=== PATIENT | male | born 1950 | race Caucasian/White ===

== ENCOUNTER 2019-09-18 09:52 | Outpatient (CLI) | payer MEDICARE, SELFPAY ==
--- NOTE | ~2019-09-18 | CT_ITS ---
EXAMINATION: CTA chest DATE: 09/18/2019 10:23 INDICATION: Thoracic aortic aneurysm TECHNIQUE: Computed tomography (CT) of the chest was performed with 100 cc Omnipaque 350 intravenous contrast. Automated exposure control and iterative reconstruction technique were employed. Exam dose: 1171.59 mGy-cm total exam DLP. COMPARISON: 11/07/2018 CTA chest FINDINGS: There is ascending thoracic aortic aneurysm measuring up to approximately 4.7 cm diameter. The aortic arch measures up to approximately 3.6 cm diameter.. The descending thoracic aorta measures up is a 3.3 cm diameter. These thoracic aortic aneurysm measurements are relatively stable compared to 11/07/2018. No evidence of thoracic aortic dissection. The included abdominal aorta is of normal caliber. There a re atherosclerotic calcifications of the thoracic and abdominal aorta and coronary arteries. Heart size is borderline. No hilar or mediastinal mass lesion or lymphadenopathy. Calcified right lower lobe pulmonary granuloma. Mild atelectasis in the right lower lobe. No pulmonar y infiltrate or consolidation or pulmonary mass lesion is evident. No hepatic, splenic, pancreatic, and adrenal space-occupying mass lesion. An approximately 3.5 cm rig ht renal cyst. Degenerative disease of the included lower cervical spine. Diffuse idiopathic skeletal hyperostosis o f the thoracic and lumbar spine. IMPRESSION: Stable thoracic aortic aneurysm since 11/07/2018 Reviewed, dictated and finalized at Location A. Reviewed, dictated and finalized at location B.
[2019-09-18 10:14] LABS: Estimated Glomerular Filt Rate > 60
== END 2019-09-18 09:53 | disposition home or self-care (01) ==
LOC: ANHIMG 09:54
PROVIDERS: PCP Internal Medicine; Visit Provider Internal Medicine Cardiovascular Disease
DX: I71.2 Thoracic aortic aneurysm, without rupture (principal)
CPT/HCPCS: 36415; 71275; Q9967

== ENCOUNTER 2020-06-13 07:01 | Outpatient (CLI) | payer MEDICARE, SELFPAY ==
--- NOTE | ~2020-06-13 | MR_ITS ---
EXAMINATION: MR lumbar spine wo con DATE: 06/13/2020 08:08 INDICATION: Left foot drop. Back pain. TECHNIQUE: Magnetic resonance imaging (MRI) of the lumbar spine was performed without intravenous con trast. Sequences included sagittal T2-weighted FSE, sagittal STIR FSE, sagittal T1-weighted FSE, and axial T2-weighted FSE. COMPARISON: Lumbar spine MRI 06/21/2018 FINDINGS: There are chronic bilateral L5 pars defects. There is 9 mm anterolisthesis of L5 on S1. The re is 3-4 mm retrolisthesis of L1 on L2, L2 on L3, L3 on L4, and L4 on L5. There is mild chronic heig ht loss of L5 vertebral body posteriorly. There is mild chronic anterior wedging of T11 and T12 verte bral bodies. There is mildly decreased disc height at T12-L1, L1-L2 and L2-L3 and moderately decrease d disc height at L3-L4, L4-L5, and L5-S1. The distal spinal cord signal intensity is normal. The conu s medullaris is at T12-L1. The following disc levels are specifically discussed: L1-L2: The disc is bulging and has an annular fissure. There is moderate bilateral facet joint osteoa rthritis. There is mild right and moderate left neural foraminal stenosis. There is moderate central canal stenosis. L2-L3: The disc is bulging with superimposed right subarticular zone extrusion with mass effect on ri ght L3 nerve root in right lateral recess. There is severe bilateral facet joint osteoarthritis. Ther e is moderate bilateral neural foraminal stenosis. There is mild central canal stenosis. L3-L4: The disc is bulging with superimposed right central extrusion. There is moderate bilateral fac et joint osteoarthritis. There is moderate bilateral neural foraminal stenosis. There is mild central canal stenosis with posterior decompression. L4-L5: The disc is bulging and has an annular fissure. There is severe bilateral facet joint osteoart hritis. There is moderate bilateral neural foraminal stenosis. There is mild central canal stenosis. L5-S1: The disc is bulging and has an annular fissure. There is severe bilateral facet joint osteoart hritis. There is mild right and moderate left neural foraminal stenosis. There is mild central canal stenosis. IMPRESSION: 1. Severe lumbar spondylosis with worsened extrusion at L2-L3. 2. Chronic bilateral L5 pars defects with grade 2 anterolisthesis of L5 on S1. Reviewed, dictated and finalized at location B. SPORTATION ANALYST
== END 2020-06-13 07:02 | disposition home or self-care (01) ==
PROVIDERS: PCP Internal Medicine; Visit Provider Internal Medicine
DX: M21.372 Foot drop, left foot (principal); M54.9 Dorsalgia, unspecified; M47.816 Spondylosis without myelopathy or radiculopathy, lumbar region; M43.17 Spondylolisthesis, lumbosacral region
CPT/HCPCS: 72148

== ENCOUNTER 2020-07-23 12:52 | Outpatient (CLI) | payer MEDICARE, SELFPAY ==
--- NOTE | ~2020-07-23 | CT_ITS ---
EXAMINATION: CTA chest DATE: 07/23/2020 14:43 INDICATION: Thoracic aortic aneurysm without rupture TECHNIQUE: Computed tomographic angiography (CTA) of the chest was performed with 100 mL Omnipque-350 intravenous contrast. Maximum intensity projection 3D-reconstructions of the aorta and other arterie s were constructed by the technologist on a separate workstation. The dose-length product (DLP) was 2 072.85 mGy-cm. Automated exposure control and iterative reconstruction technique were employed. COMPARISON: 09/18/2019 FINDINGS: The ascending aorta measures 4.2 cm at the level of the sinuses of Valsalva and 4.5 cm at t he level of the main pulmonary artery. There is no dissection. Dependent atelectasis is present. A ca lcified nodule of the right lower lobe is consistent with old granulomatous disease. There is no pleu ral effusion or pneumothorax. No pathologically enlarged thoracic lymph nodes are identified. The hea rt size is normal. Coronary artery stents are noted. There is moderate thoracic spondylosis. IMPRESSION: 1. Fusiform enlargement of the ascending aorta measuring 4.5 cm at the level of the main pulmonary ar tomas. No dissection. Reviewed, dictated and finalized at location A. HEAD CLEANER MAINTAINER IMPRESSION: 1. Fusiform enlargement of the ascending aorta measuring 4.5 cm at the level of the main pulmonary artery. No dissection.
[2020-07-23 14:11] LABS: Estimated Glomerular Filt Rate > 60
== END 2020-07-23 12:53 | disposition home or self-care (01) ==
PROVIDERS: PCP Internal Medicine; Visit Provider Internal Medicine Cardiovascular Disease
DX: I71.2 Thoracic aortic aneurysm, without rupture (principal)
CPT/HCPCS: 71275; Q9967

== ENCOUNTER 2020-08-27 07:43 | Outpatient (CLI) | payer MEDICARE, SELFPAY ==
--- NOTE | ~2020-08-27 | NM_ITS ---
EXAMINATION: NM mary stress w perfusion DATE: 08/27/2020 10:26 INDICATION: Dyspnea TECHNIQUE: Rest images were obtained following intravenous administration of 11.22 mCi Tc99m tetrofos min (Myoview). The patient was infused intravenously with Lexiscan (Regadenoson). Then, 33 mCi Tc99m tetrofosmin (Myoview) was administered intravenously, and stress images were obtained. Data was recon structed into short axis and horizontal and vertical long axis SPECT images. Gated SPECT images were also obtained. COMPARISON: None. FINDINGS: There is no definite reversible or fixed perfusion abnormality to suggest ischemia or infar ction. There is normal left ventricular chamber size, wall motion and ejection fraction. Left ventr icular ejection fraction measures 60%. IMPRESSION: 1. Normal myocardial perfusion at rest and during stress. 2. Left ventricular ejection fraction measuring 60%. Reviewed, dictated and finalized at location A. UP HELPER
--- NOTE | 2020-08-27 08:08 | EST_ITS ---
Patient Info Name: Stephen Welch Age: 70 years : 1950 Gender: Male Ht: 71 in Wt: 333 lbs BSA: 2.83 m2 Exam Date: 08/27/2020 9:14 AM Exam Location: [facility] Stress Patient Status: Outpatient Admit Date: 08/27/2020 Staff Ordering Physician: Nik Daniels DO Attending Provider: Nik Daniels DO Exercise Technologist: Wesley Meneses RDCS, RT Exercise Physician: Nik Daniels DO Exam Type: CA stress mary w NM Study Info A regadenoson stress test was performed. Summary 1. 1. Negative Lexiscan stress test for ischemic ST changes by ECG criteria. 2. 2. Stable hemodynamics throughout the test. 3. 3. Nuclear scan to follow and will be reported separately. Please correlate with it. 4. 4. Patient advised to decrease Toprol 50 mg daily from 100 mg daily due to bradycardia. 5. 5. Patient informed of the above results. Protocol: Lexiscan Stress ECG Details Stage: REST Duration (min): 1 min : 4 sec HR (bpm): 50 SBP (mmHg): 136 DBP (mmHg): 77 Stage: REST Duration (min): 6 min : 23 sec HR (bpm): 62 SBP (mmHg): 136 DBP (mmHg): 77 Stage: STAGE 1 Duration (min): 0 min : 59 sec HR (bpm): 47 SBP (mmHg): 138 DBP (mmHg): 83 Stage: RECOVERY Duration (min): 1 min : 0 sec HR (bpm): 58 SBP (mmHg): 138 DBP (mmHg): 83 Stage: RECOVERY Duration (min): 2 min : 0 sec HR (bpm): 52 SBP (mmHg): 163 DBP (mmHg): 84 Stage: RECOVERY Duration (min): 3 min : 0 sec HR (bpm): 46 SBP (mmHg): 163 DBP (mmHg): 84 Stage: RECOVERY Duration (min): 3 min : 27 sec HR (bpm): 50 SBP (mmHg): 163 DBP (mmHg): 84 Rest HR: 62 bpm Peak HR: 62 bpm Rest Sys BP: 136 mmHg Peak Sys BP: 163 mmHg Max Pred HR: 150 bpm % Max Pred HR: 41 % Target HR: 128 bpm Max RPP: 10,106 bpm*mmHg Termination Reason: Completed protocol Cardiac Symptoms: Shortness of breath Total Time: 1 min : 0 sec Rest Pardo BP: 77 mmHg Peak Pardo BP: 84 mmHg Total Dose: 0.4 mg Resting ECG Atrial fib at HR 40-50's bpm. Stress ECG No ST changes. Arrhythmias None. Report Signatures
== END 2020-08-27 07:44 | disposition home or self-care (01) ==
PROVIDERS: PCP Internal Medicine; Visit Provider Internal Medicine Cardiovascular Disease
DX: R06.09 Other forms of dyspnea (principal)
CPT/HCPCS: 78452; 93017; A9502; J2785

== ENCOUNTER → 2021-05-06 02:32 | Outpatient (CLI) | payer MEDICARE, SELFPAY ==
[2021-05-06 17:30] LABS: SARS-CoV-2 RNA PCR Positive
== END ==
PROVIDERS: PCP Internal Medicine; Visit Provider Physician Assistant
DX: U07.1 COVID-19 (principal)
CPT/HCPCS: C9803; U0003; U0005

== ENCOUNTER 2021-05-08 09:50 | Outpatient (RCR) | payer MEDICARE, SELFPAY ==
[2021-05-08] MEDS: ACETAMINOPHEN 325 MG TABLET 650 MG PO (10:06)
[2021-05-08] MEDS: diphenhydrAMINE HCl CAP 25 MG CAPSULE PO (10:06)
[2021-05-08] MEDS: FAMOTIDINE 20 MG TABLET PO (10:07)
[2021-05-08 10:24] VITALS: BP 133/60; PULSE 64; RESP 22; TEMP 36.9; O2SAT 96
--- NOTE | 2021-05-08 10:25 | PC.NURSE ---
Patient received [facility] vaccine in September 2020.
[2021-05-08 11:17] VITALS: BP 133/63; PULSE 98; RESP 20; TEMP 36.8; O2SAT 97
--- NOTE | 2021-05-11 09:49 | PC.NURSE ---
Called patient to follow-up regarding COVID antibody infusion. Patient states he is feeling much better and denies any side effects.
== END 2021-05-08 15:44 | disposition home or self-care (01) ==
LOC: AMCINF 09:50
PROVIDERS: PCP Internal Medicine; Referring Provider Physician Assistant; Visit Provider Internal Medicine Hematology & Oncology
DX: Z23 Encounter for immunization (principal); U07.1 COVID-19; I10 Essential (primary) hypertension
CPT/HCPCS: A9270; M0243; Q0243

== ENCOUNTER 2021-07-26 20:04 | Emergency (ER) | payer MEDICARE, SELFPAY ==
--- NOTE | ~2021-07-26 | XR_ITS ---
EXAMINATION: XR chest 1V portable EXAM DATE: 07/26/2021 22:27 INDICATION: SOB, COPD, SWOLLEN ANKLES . TECHNIQUE: Portable AP frontal chest x-ray was obtained. Comparison is made to prior examination from 11/07/2018. FINDINGS: There is cardiomegaly, small to moderate left and small right pleural effusion. There is pu lmonary vascular congestion. Possible mild pulmonary edema. Consider CHF exacerbation. There is no pn eumothorax suspected. There are mild bony degenerative changes. IMPRESSION: 1. Findings consistent with CHF exacerbation. Reviewed, dictated and finalized at location A. OP ANALYST
[2021-07-26 20:16] VITALS: BP 151/92; PULSE 85; RESP 22; TEMP 36.9; O2SAT 96
[2021-07-26 21:46] VITALS: PULSE 104; RESP 21; O2SAT 85
--- NOTE | 2021-07-26 21:58 | ECG_ITS ---
Measurements Intervals [place] Rate: 76 P: ID: 0 QRS: -3 QRSD: 102 T: 0 QT: 342 QTc: 387 Interpretive Statements ATRIAL FIBRILLATION FREQUENT VENTRICULAR PREMATURE COMPLEXES LOW QRS VOLTAGE IN PRECORDIAL LEADS NONSPECIFIC ST & T-WAVE ABNORMALITY- INF/HIGH LAT LEADS BASELINE ARTIFACT- I, II, III, AVR, AVL, AVF, V1-V3, V6 ABNORMAL ECG Electronically Signed On 07-27-2021 6:22:12 WAX BALL KNOCK OUT WORKER by Nik Daniels D.O.
[2021-07-26 22:00] VITALS: PULSE 96; RESP 23; O2SAT 95
[2021-07-26 22:01] VITALS: BP 164/87; PULSE 84; RESP 34; O2SAT 94
[2021-07-26 22:18] LABS: Alveolar/Arterial O2 Gradient 80.1 mmHg; Base Excess ABG 4.1 mEq/l (+/-2.0); Fractional Inspired Oxygen 28 %; HCO3 ABG 27.1 mEq/l (22.0-26.0); Oxygen Content ABG 17.2 %vol (16.0-22.0); Oxygen Saturation ABG 96.5 % (95.0-100.0); Oxyhemoglobin 94.1 % THb (90.0-100.0); PCO2 ABG 35.3 mmHg (35.0-45.0); PO2 ABG 77.9 mmHg (80.0-100.0); PO2 FiO2 Ratio Arterial Blood 2.78 %
[2021-07-26 22:20] LABS: Device NASAL CANNULA; Modified Allen's Test Pass; Site Drawn RIGHT RADIAL; pH ABG 7.503 (7.350-7.450)
--- NOTE | 2021-07-26 22:40 | ED.GENADULT ---
HPI - General Adult General Chief complaint: Shortness of Breath/Dyspnea Stated complaint: sob, copd, Time Seen by Provider: 07/26/21 21:50 History of Present Illness HPI narrative: Patient is a 71-year-old gentleman who presents the emergency department with chief complaint of shortness of breath. Patient reports he has history of COPD also history of PEs and is currently on an anticoagulant. Patient states over the last several days he has been having increasing shortness of breath noticed that he has to breathe hard to be able to feel as though he is not short of breath. The patient states that his lower extremities are swollen patient does report that he has had a little bit of tightness in his chest patient denies fever does report that he took a rapid COVID test on Tuesday that was negative. The patient does report that he has had COVID previously. Related Data Allergies Allergy/AdvReac Type Severity Reaction Status Date / Time Sulfa (Sulfonamide Allergy Severe Swelling Verified 07/26/21 23:44 Antibiotics) Review of Systems Review of Systems: A 10 system review of systems was completed on the patient and is negative except for what is stated in the HPI. Nursing and ancillary documentation was reviewed. [facility] Family History Family History Father Acute myocardial infarction Sibling Patient's sister is Family history of cardiovascular disease Social History Social History Years smoked: 10 Tobacco type: cigars Second hand tobacco smoke exposure: No Smoking end date: 07/04/94 Alcohol intake: never Spiritual care concerns: No Exam Narrative: GENERAL: Well-appearing, well-nourished, and in no acute distress. HEAD: Normocephalic, atraumatic. EYES: PERRLA and EOMI. ENT: Nares clear, no rhinorrhea or epistaxis. Mucous membranes moist. NECK: Supple. CHEST: Clear to auscultation. No respiratory distress. HEART: Regular rate and rhythm. No murmur heard. Normal peripheral pulses. ABDOMEN: Soft, nontender, nondistended, normal active bowel sounds. EXTREMITIES: Normal range of motion. +2 edema. SKIN: Warm, dry, no rash. NEURO: No focal deficits. Alert and oriented x3. PSYCH: Normal mood and affect. Course Course Emergency Course: EKG is A. fib with a rate of [address] elevation or ST depression occasional PVC Chest x-ray shows pulmonary vascular congestion Attempt to perform a CTA of the chest was done patient was unable to lay flat. Patient was given diuretics the plan was to admit the patient to the hospital continue diuresis and manage and supportive care also the patient tested positive for COVID-19. The patient decided that the hospital was not comfortable and chose to leave the hospital AGAINST MEDICAL ADVICE the patient was explained that there is a risk of and worsening of symptoms, potential permanent disability if he were to leave. The patient expressed understanding this. Vital Signs Vital signs: Vital Signs Temperature 36.9 C 07/26/21 20:16 Pulse Rate 85 07/26/21 20:16 Respiratory Rate 22 H 07/26/21 20:16 Blood Pressure 151/92 H 07/26/21 20:16 Pulse Oximetry 96 07/26/21 20:16 Temperature 36.9 C 07/26/21 20:16 Pulse Rate 76 07/27/21 03:31 Respiratory Rate 32 H 07/27/21 03:31 Blood Pressure 157/78 H 07/27/21 03:31 Pulse Oximetry 94 07/27/21 03:31 Medical Decision Making Vital Signs Vital Signs: Vital Signs Temperature 36.9 C 07/26/21 20:16 Pulse Rate 85 07/26/21 20:16 Respiratory Rate 22 H 07/26/21 20:16 Blood Pressure 151/92 H 07/26/21 20:16 Pulse Oximetry 96 07/26/21 20:16 Temperature 36.9 C 07/26/21 20:16 Pulse Rate 76 07/27/21 03:31 Respiratory Rate 32 H 07/27/21 03:31 Blood Pressure 157/78 H 07/27/21 03:31 Pulse Oximetry 94 07/27/21 03:31 Lab Data Resu
[2021-07-26 23:10] LABS: Basophils Percent Auto 0.3 % (0.2-1.2); Eosinophils Absolute Auto 0.1 K/mm3 (0-0.3); Eosinophils Percent Auto 0.5 % (0-4.4); Hemoglobin 12.9 g/dL (14.0-18.0); Immature Granulocyte Absolute 0.06 K/mm3 (0.00-0.031); Immature Granulocyte Percent A 0.5 % (0-0.5); Lymphocytes Percent Auto 11.1 % (18.3-44.2); Mean Corpuscular HGB Conc 33.1 g/dl (32-36); Mean Corpuscular Hemoglobin 26.7 pg (26-34); Mean Corpuscular Volume 80.7 fl (80-100); Mean Platelet Volume 8.3 fl (7.4-10.4); Monocytes Percent Auto 8.6 % (2.6-8.5); Neutrophils Absolute Auto 9.2 K/mm3 (1.3-6.7); Platelet Count Result 328 k/mm3 (150-375); Red Blood Count 4.83 M/mm3 (4.6-6.20); Red Cell Distribution Width 16.5 % (11.5-14.5); White Blood Count 11.7 K/mm3 (4.5-10.0)
[2021-07-26 23:20] LABS: Partial Thromboplastin Time 52.1 SECONDS (22.3-36.8)
[2021-07-26 23:21] LABS: Alanine Aminotransferase 30 U/L (4-50); Albumin Level 3.9 g/dL (3.5-5.1); Alkaline Phosphatase 119 U/L (38-126); Anion Gap 11 mmol/L (8-16); Aspartate Amino Transferase 40 U/L (17-59); Bilirubin,Total 1.5 mg/dL (0.2-1.3); Blood Urea Nitrogen 15 mg/dL (9-20); Calcium 9.4 mg/dL (8.4-10.2); Carbon Dioxide 28 mmol/L (22-30); Chloride 97 mmol/L (98-107); Estimated CRCL calculation 125 ml/min; Estimated Glomerular Filt Rate > 60; Glucose 136 mg/dL (65-110); Lactic Acid Reflex 1.2 mmol/L (0.7-2.1); Potassium 3.4 mmol/L (3.4-5.0); Sodium 136 mmol/L (137-145)
[2021-07-26 23:32] LABS: Troponin I < 0.012 ng/mL (0.000-0.034)
[2021-07-26 23:39] LABS: NT Pro B Type Natriuretic Pept 2220 pg/mL (5-100)
[2021-07-26 23:40] VITALS: BP 148/74; PULSE 91; RESP 20; O2SAT 97
[2021-07-27 00:02] VITALS: BP 151/88; PULSE 81; RESP 31; O2SAT 97
--- NOTE | 2021-07-27 00:18 | PC.NURSE ---
Pt to imaging at this time.
[2021-07-27] MEDS: FUROSEMIDE INJ 40 MG/4 ML VIAL IV PUSH (00:52)
[2021-07-27 01:03] LABS: Add Urine Microscopic? YES; Appearance Urine Clear (Clear); Bilirubin Urine Negative (Negative); Blood Urine Negative (Negative); Color Urine Yellow (Yellow); Glucose Urine UA Negative (Negative); Ketones Urine Negative (Negative); Leukocyte Esterase Ur Negative LEU/UL (Negative); Mucus Urine Rare /lpf; Nitrate Urine Negative (Negative); Protein Urine Negative (Negative); Specific Grav Ur 1.015 (1.001-1.035); Squamous Epithelial Cell Urine Rare /hpf (Few); WBC Urine 0-3 /hpf
[2021-07-27 01:32] VITALS: BP 151/83; PULSE 84; RESP 18; O2SAT 99
--- NOTE | 2021-07-27 01:38 | PC.NURSE ---
Pt expresses wishes to leave AMA, ERP at bedside discussing plan.
[2021-07-27 02:31] VITALS: BP 172/95; PULSE 77; RESP 32; O2SAT 95
[2021-07-27 03:11] LABS: SARS-CoV-2 RNA PCR Positive
[2021-07-27 03:20] LABS: Troponin I < 0.012 ng/mL (0.000-0.034)
[2021-07-27 03:31] VITALS: BP 157/78; PULSE 76; RESP 32; O2SAT 94
--- NOTE | 2021-07-27 04:46 | PC.NURSE ---
Pt visitor instructed to leave due to COVID result, pt requesting to sign out AMA at this time. ERP at bedside.
--- NOTE | 2021-07-27 05:02 | PC.NURSE ---
Addendum entered by Estela Johnson RN 07/27/21 05:12: Pt states he cannot stay in ED bed any longer. Pt offered hospital bed, pt declined. Further comfort measures offered to pt, pt declines. Original Note: After discussion with this RN and ERP, pt continues to request AMA paperwork. Pt warned of risks of leaving extensively. Pt verbalizes he will follow up with automobile service station mechanic in the morning.
== END 2021-07-27 05:13 | disposition left against medical advice (07) ==
LOC: ANHED 07-27 02:11 → ANH3MEDSUR 07-27 05:11
PROVIDERS: Emergency Provider Emergency Medicine; PCP Internal Medicine
DX: U07.1 COVID-19 (principal); R06.00 Dyspnea, unspecified; I50.9 Heart failure, unspecified; Z86.16 Personal history of COVID-19; J44.9 Chronic obstructive pulmonary disease, unspecified; Z86.711 Personal history of pulmonary embolism; Z79.01 Long term (current) use of anticoagulants; Z87.891 Personal history of nicotine dependence; I48.91 Unspecified atrial fibrillation; I49.3 Ventricular premature depolarization; R94.31 Abnormal electrocardiogram [ECG] [EKG]
CPT/HCPCS: 36415; 36600; 71045; 80053; 81001; 82805; 83605; 83880; 84484; 85025; 85610; 85730; 93005; 96374; 99284; C9803; J1940; U0003; U0005

== ENCOUNTER 2022-05-13 18:42 | Inpatient (IN) | payer MEDICARE, SELFPAY ==
[2022-05-13] VITALS (31 sets, daily range): BP systolic 115–176; BP diastolic 68–130; PULSE 61–90; RESP 12–27; TEMP 37.2; O2SAT 99
--- NOTE | ~2022-05-13 | CT_ITS ---
EXAMINATION: CT brain wo con DATE: 05/13/2022 18:52 INDICATION: Right hemiparesis. TECHNIQUE: Computed tomography (CT) of the head was performed without intravenous contrast. The mA wa s adjusted according to patient size. Iterative reconstruction technique was employed. The dose-lengt h product was 681.00 mGy-cm. COMPARISON: None FINDINGS: There are scattered areas of low attenuation in the cerebral white matter, which is within normal limits for the patient's age. There is no intracranial hemorrhage, acute infarction, or abnorm al intracranial mass lesion. The ventricles are normal in size. There are likely changes of left ocul ar lens replacement surgery. There is mild mucosal thickening in the paranasal sinuses. A 3 mm subcut aneous density in the right cheek may be a calcification or foreign body. IMPRESSION: 1. Normal aging brain. I called this result to Dr. Post. Reviewed, dictated and finalized at location A. AIDE
--- NOTE | ~2022-05-13 | XR_ITS ---
EXAMINATION: XR chest 1V portable DATE: 05/13/2022 19:15 INDICATION: Confusion. Cerebrovascular accident. TECHNIQUE: A single frontal view of the chest was obtained. COMPARISON: Chest single view 07/26/2021, chest CT 07/23/2020 FINDINGS: A calcified right lung nodule is consistent with old granulomatous disease. No pleural effu mikaela or pneumothorax. Cardiomegaly is noted. IMPRESSION: 1. Cardiomegaly. Reviewed, dictated and finalized at location A. ER TENDER IMPRESSION: 1. Cardiomegaly.
--- NOTE | ~2022-05-13 | CT_ITS ---
EXAMINATION: CTA BRAIN/CAROTID DATE: 05/13/2022 23:56 INDICATION: Stroke TECHNIQUE: Computed tomographic angiography (CTA) of the head and neck was performed with 100 mL Omni paque-350 intravenous contrast. Multiplanar reconstructions and maximum intensity projection 3D-recon structions of the carotid arteries and of the intracranial arteries were created by the technologist on a separate workstation. Automated exposure control and iterative reconstruction technique were emp loyed.The dose-length product was 1185.20 mGy-cm. COMPARISON: Head CT dated 05/13/2022 FINDINGS: Carotid arteries: Visualized portion of the aortic arch is normal in caliber with minimal nonhemodynamically significan t atherosclerotic plaque and no dissection. Tortuous innominate artery with additional minimal athero sclerotic plaque. There is small amount of atherosclerotic plaque with 0% stenosis of the left and ri ght carotid bulbs relative to normal distal artery lumen diameter (NASCET criteria). There are few sm all bilateral thyroid nodules, the largest on the left measuring 12 mm. Cervical soft tissues are oth erwise unremarkable. Visualized upper lungs are clear accounting for expiratory phase of imaging. Intracranial arteries Small amount of nonhemodynamically significant atherosclerotic plaque at the left vertebral artery an d bilateral carotid siphons. There is no hemodynamically significant stenosis in the vertebral, basil ar and internal carotid arteries. Left vertebral artery is dominant. There are no aneurysms identifie d. Bilateral P1 segments are patent. Left and right anterior circulation are supplied via a larger ca liber right A1 segment segments Cerebral arterial arborization appears symmetric. Moderate to severe cervical spondylosis. IMPRESSION: 1. Small amount of atherosclerotic plaque with 0% stenosis of the right and left carotid bulbs relati ve to normal distal artery lumen diameter (NASCET criteria). 2. Normal variant supply of both the left and right anterior cerebral arteries via the right internal carotid artery and a patent right A1 segment and anterior communicating artery. Otherwise unremarkab le cerebral CT angiogram. Reviewed, dictated and finalized at location A. ERCIAL MANAGER IMPRESSION: 1. Small amount of atherosclerotic plaque with 0% stenosis of the right and lef t carotid bulbs relative to normal distal artery lumen diameter (NASCET criteri a). 2. Normal variant supply of both the left and right anterior cerebral arteries via the right internal carotid artery and a patent right A1 segment and anterio r communicating artery. Otherwise unremarkable cerebral CT angiogram.
--- NOTE | ~2022-05-13 | XR_ITS ---
EXAMINATION: XR hip RT 2V w AP pelvis INDICATION: Right groin pain TECHNIQUE: AP view the pelvis and two views of the right hip are obtained. COMPARISON: None available FINDINGS: There is moderate osteoarthritis of the hips. Bone alignment is normal. There is no fractur e. Phleboliths are noted in the pelvis. Spinal fusion hardware is noted in the lumbar spine. IMPRESSION: 1. Moderate osteoarthritis of the hips without acute osseous abnormality. Reviewed, dictated and finalized at location A. MANAGER
--- NOTE | ~2022-05-13 | MR_ITS ---
EXAMINATION: MR brain/brain stem wo con DATE: 05/14/2022 15:04 INDICATION: Acute stroke. TECHNIQUE: Magnetic resonance imaging (MRI) of the brain and brainstem was performed without intraven ous contrast. COMPARISON: Head CT 05/13/2022 FINDINGS: There is an acute infarct in left temporal occipital region in the expected distribution of left posterior cerebral artery. There is an acute infarct in left thalamus. There is an old lacunar infarct in right thalamus. There are scattered areas of nonspecific increased T2-weighted signal inte nsity in the cerebral white matter, which is within normal limits for the patient's age. There is no intracranial hemorrhage or abnormal mass lesion. The ventricles are normal in size. There is mild muc osal thickening in the ethmoid sinuses. The mastoid air cells are normal. There are likely changes of left ocular lens replacement surgery. There is susceptibility artifact from a subcutaneous foreign b diogenes in right infraorbital region. IMPRESSION: 1. Acute infarct in left temporal occipital region. Acute infarct in left thalamus. 2. Old lacunar infarct in right thalamus. Reviewed, dictated and finalized at location A. ER MAN IMPRESSION: 1. Acute infarct in left temporal occipital region. Acute infarct in left thala mus. 2. Old lacunar infarct in right thalamus.
--- NOTE | 2022-05-13 18:45 | ECG_ITS ---
Measurements Intervals [place] Rate: 64 P: IA: 0 QRS: -9 QRSD: 93 T: 89 QT: 445 QTc: 461 Interpretive Statements ATRIAL FIBRILLATION VENTRICULAR PREMATURE COMPLEX LEFT VENTRICULAR HYPERTROPHY WITHN ST-T CHANGES BASELINE ARTIFACT- V4-V5 ABNORMAL RECG COMPARED TO ECG 07/26/2021 22:21:38 NO SIGNIFICANT CHANGES Electronically Signed On 05-13-2022 20:52:52 TUBERCULOSIS SPECIALIST by Nik Daniels D.O.
--- NOTE | 2022-05-13 19:05 | ED.NEUROSD ---
HPI - Neuro Symptoms/Deficit General Chief Complaint: Suspected CVA Stated Complaint: cva Time Seen by Provider: 05/13/22 18:53 History of Present Illness HPI Narrative: 71-year-old male presenting the emergency department for evaluation of altered mental status. Patient was at home with his when he was watching TV and noticed that he was slow to respond. She states she did give him a glass of water and that in his right hand he was almost about to drop the glass. states patient was able to eat some dinner but did not utilize his right hand for using the utensils. Patient atrial fibrillation on Xarelto, history of prior DVT, hypertension Related Data Allergies Allergy/AdvReac Type Severity Reaction Status Date / Time Sulfa (Sulfonamide Allergy Severe Swelling Verified 05/10/22 09:22 Antibiotics) Review of Systems Review of Systems: CONSTITUTIONAL: Denies fever, chills, or sweats. EYES: Denies visual changes, redness, or discharge. ENT: Denies rhinorrhea, congestion, sore throat, or otalgia. CARDIOVASCULAR: Denies chest pain, palpitations, or edema. RESPIRATORY: Denies cough or dyspnea. GASTROINTESTINAL: Denies abdominal pain, nausea, vomiting, or diarrhea. GENITOURINARY: Denies dysuria or hematuria. SKIN: Denies rash or itching. MUSCULOSKELETAL: Denies back pain, joint pain, or myalgia. NEUROLOGIC: See HPI PSYCHIATRIC: Denies anxiety or depression. [facility]LY [facility] Past Medical History Medical History (Updated 05/14/22 @ 06:06 by Lanre Maya MD) Chronic atrial fibrillation COPD (chronic obstructive pulmonary disease) COVID-19 05/2021 Depression Essential (primary) hypertension Foot drop, left Former smoker No longer active. Pt quit 1989. 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 They have 3 adult children who are healthy. 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 He smoked couple of cigars a day for between 10 in 20 years but quit smoking over 40 years ago. Does not drink alcohol. He ambulates with canes and or walker. Code status: Full code Surrogate decision maker: Years smoked: 10 Smoking status: Former smoker Tobacco type: cigars Second hand tobacco smoke exposure: Yes Smoking end date: 07/04/89 Alcohol intake: never Substance use: never Substance use type: does not use Lack of Transportation: No Lack of Food: Never True Current Housing: I Have Housing Concerned About Future Housing: No Difficulty Paying Gas/Electric Bills: No Difficulty Paying for Meds: No Currently Unemployed: No Education: Decline to Answer Difficulty w/ Childcare or Family Care: No Spiritual care concerns: No Exam Narrative: APPEARANCE: Well appearing, no pain, no distress, well-nourished. HEAD: normocephalic, atraumatic. EYES: PERRLA/EOMI, conjunctivae clear. NOSE: Normal no drainage EARS:TMS clear with good light reflex. THROAT: Pharynx clear, no exudate. NECK: Supple. No adenopathy, no masses. RESPIRATORY: Airway patent, respirations nonlabored. Clear to auscultation bilaterally, no rales, rhonchi
[2022-05-13 19:09] LABS: Glucose Point of Care 112 mg/dl (65-105)
[2022-05-13 19:14] LABS: Basophils Percent Auto 0.2 % (0.2-1.2); Eosinophils Absolute Auto 0.1 K/mm3 (0-0.3); Hematocrit 42.9 % (42.0-52.0); Immature Granulocyte Absolute 0.04 K/mm3 (0.00-0.031); Immature Granulocyte Percent A 0.5 % (0-0.5); Lymphocytes Percent Auto 19.8 % (18.3-44.2); Mean Corpuscular HGB Conc 32.6 g/dl (32-36); Mean Corpuscular Hemoglobin 27.5 pg (26-34); Mean Corpuscular Volume 84.1 fl (80-100); Mean Platelet Volume 9.2 fl (7.4-10.4); Monocytes Absolute Auto 0.7 K/mm3 (0.1-0.6); Monocytes Percent Auto 7.7 % (2.6-8.5); Neutrophils Absolute Auto 6.1 K/mm3 (1.3-6.7); Neutrophils Percent Auto 70.8 % (45.5-73.1); Platelet Count Result 200 k/mm3 (150-375); Red Cell Distribution Width 16.1 % (11.5-14.5); White Blood Count 8.6 K/mm3 (4.5-10.0)
[2022-05-13 19:24] LABS: Alanine Aminotransferase 34 U/L (6-50); Albumin Level 4.4 g/dL (3.5-5.1); Alkaline Phosphatase 100 U/L (38-126); Anion Gap 10 mmol/L (8-16); Aspartate Amino Transferase 36 U/L (17-59); Blood Urea Nitrogen 19 mg/dL (9-20); Carbon Dioxide 25 mmol/L (22-30); Chloride 103 mmol/L (98-107); Estimated CRCL calculation 91 ml/min; Estimated Glomerular Filt Rate > 60; Glucose 126 mg/dL (65-110); Potassium 3.7 mmol/L (3.4-5.0); Sodium 138 mmol/L (137-145)
[2022-05-13 19:35] LABS: INR 1.1; Prothrombin Time 13.3 Seconds (11.1-14.7)
[2022-05-13 19:36] LABS: Partial Thromboplastin Time 27.7 SECONDS (22.3-36.8); Troponin I < 0.012 ng/mL (0.000-0.034)
[2022-05-13 19:58] LABS: Influenza A QL RT-PCR Negative (Negative); Influenza B QL RT-PCR Negative (Negative); SARS-CoV-2 RNA PCR Negative
[2022-05-13 21:02] LABS: Appearance Urine Clear (Clear); Bilirubin Urine Negative (Negative); Blood Urine Negative (Negative); Color Urine Yellow (Yellow); Glucose Urine UA Negative (Negative); Ketones Urine Negative (Negative); Leukocyte Esterase Ur Negative LEU/UL (Negative); Nitrate Urine Negative (Negative); Protein Urine Negative (Negative); pH Urine 7.5 (5.0-9.0)
[2022-05-13 21:12] LABS: Mucus Urine Rare /lpf; RBC Urine 0-2 /hpf (0-2)
[2022-05-13 21:13] LABS: Add Urine Microscopic? YES
--- NOTE | 2022-05-13 23:42 | PM.IMHP ---
H&P: HPI History of Present Illness Date/Time: 05/13/22 23:00 Chief Complaint: Right hand weakness, staring into space Narrative: 71-year-old male with past medical history of COPD, hypertension, GERD, hyperlipidemia and atrial fibrillation who presented to the ER with right-sided weakness and confusion. Source of information comes mostly from a 's report has the patient is having difficulty with word finding. The patient's reports that at dinner time she noticed the patient staring off into space. Sometime between this episode and when the patient arrived to the ER he had some bladder incontinence. When she actually may dinner he seemed confused as to what she had actually served him. Then during dinner he was having difficulty picking up his fork and instead fed himself with his fingers. She is unsure if he fed himself with his right hand or left hand. He is right handed. 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 He had had symptoms concerning for TIA in 2019 and was sent to [place] where he was told he had a white and blood vessel with sluggish flow. During that episode he had some transient paresthesias to his thumb and perioral paresthesias. He does have chronic left foot droop and this is not new. The patient subsequently has chronic gait instability but was able to ambulate into the ER with his walker. His reports that he walks with either 2 canes or walker depending on his level of weakness for the day. He stated he has been using a walker since he had low back surgery with a cage placed on his lumbar spine last year. Patient denies any headache or vision changes but has chronic left eye blindness due to prior retinal detachment following cataract surgery. After he had been in the ER for couple of hours and had already accepted the patient for admission the patient then began having difficulty with word finding. When I asked him what I was holding in my hand he told me that it was guilty. I was referring to a pen that I was holding in my hand. He could not name the current president. He went through a list of the months and stopped at March. He could not tell me that with April. He could not tell me that he was in the ER in kept substituting other words instead of ER. He was able to tell me the year. He still has cataract maturing in his right eye but states that his vision is stable. Both he and his tonight and the patient having any difficulties with urinary frequency, dysuria or BPH. He denies any cough, congestion, fevers or chills. Temperature was 99? in the ER. He has no identifiable source of infection. Initial CT scan in the ER was negative for acute intercranial process. Review of Systems Review of Systems: Limited due to patient's difficulty with word finding. However strain answer questions with yes and no answers review of systems was otherwise negative besides neuro symptoms. Twelve point review of systems was attempted. [facility] Past Medical History Medical History (Updated 05/14/22 @ 00:43 by Ligia Benitez DO) Chronic atrial fibrillation COPD (chronic obstructive pulmonary disease) COVID-19 05/2021 Depression Essential (primary) hypertension Foot drop, left Former smoker No longer active. Pt quit 1989. 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
[2022-05-14] VITALS (15 sets, daily range): BP systolic 117–168; BP diastolic 57–83; PULSE 45–93; RESP 20–24; TEMP 36.6–36.9; O2SAT 93–100; BMI 42.6
--- NOTE | 2022-05-14 | ECHO_ITS ---
Patient Info Name: Stephen Welch Age: 71 years : 1950 Gender: Male Ht: 72 in Wt: 314 lbs BSA: 2.75 m2 HR: 65 bpm BP: 167 / 66 mmHg Heart Rhythm: Atrial Fibrillation Technical Quality: Fair Exam Date: 05/14/2022 12:45 PM Exam Location: [facility] Patient Status: Outpatient Admit Date: 05/13/2022 Staff Ordering Physician: Hyacinth Alejandre MD Needle Punch Operator: Ebonie Hector RDCS Attending Provider: Ligia Benitez DO Exam Type: CA echo dop bubble study w con Study Info Indications - stroke h/o atrial fib Complete two-dimensional, color flow and Doppler transthoracic echocardiogram is performed with contrast to opacify the left ventricle and to improve the deliniation of the left ventricle endocardial borders. Contrast/Agitated Saline Contrast/Ag. Saline: Definity Amount: 3.00 ml Administered By: Ebonie Hector RDCS Existing IV Access: Yes IV Access Condition: patent with no signs of infiltration Contrast/Ag. Saline: Agitated Saline Amount: 20.00 ml Administered By: Ashlie Banda RDCS Existing IV Access: Yes IV Access Condition: patent with no signs of infiltration Summary 1. Normal left and right ventricular systolic function and size. 2. Moderate left atrial enlargement. 3. Atrial fibrillation. 4. Agitated saline contrast demonstrates no intracardiac shunt. Left Ventricle Left ventricular chamber dimension is normal. Left ventricular systolic function is normal, estimated at 60-65%. The left ventricular diastolic function is indeterminate. Right Ventricle Right ventricular chamber dimension is normal. Left Atria Left atrial chamber dimension is moderately enlarged. Right Atria Right atrial chamber dimension is normal. Atrial Septum Intact interatrial septum visualized by agitated saline imaging. Aortic Valve The aortic valve is normal. Pulmonic Valve The pulmonic valve is not well visualized. Mitral Valve The mitral valve has normal leaflets. Tricuspid Valve The tricuspid valve leaflets are normal. Pericardium/Pleural The pericardium appears normal. Aorta The aortic root size at the sinus of Valsalva is normal. Left Ventricular Outflow Tract Name Value Normal LVOT 2D LVOT Diameter 2.1 cm LVOT Doppler LVOT Peak Gradient 4 mmHg LVOT Mean Gradient 2 mmHg LVOT VTI 19 cm LVOT VTI/AV VTI Ratio 1.0 LVOT Stroke Volume 69 ml LVOT CO 3.9 l/min LVOT CI 1.4 l/min/m2 Pulmonic Valve Name Value Normal RVOT Doppler RVOT Peak Gradient 4 mmHg PV Doppler
[2022-05-14] MEDS: RIVAROXABAN 20 MG TABLET PO (02:52)
--- NOTE | 2022-05-14 03:53 | ADMGEN ---
This patient, Stephen Welch, was admitted to IMU Room 205-02. Patient/family oriented to hospital policies and general routines including ID bracelet, bed and alarms, visiting hours, pain management, procedures, bathroom and other care routines, personal items, smoking policy, room service/diet, and visiting hours. Information on how to activate the Rapid Response Team has been discussed. Patient/Family are encouraged to report perceived risks to care and to ask questions if they do not understand what they are told or what they should do.
--- NOTE | 2022-05-14 09:04 | WPDNEURCNPN ---
Assessment and Plan Assessment and plan (1) CVA (cerebral vascular accident): Code(s): I63.9 - Cerebral infarction, unspecified Status: Acute (2) Chronic atrial fibrillation: Code(s): I48.20 - Chronic atrial fibrillation, unspecified Status: Acute (3) Essential (primary) hypertension: Code(s): I10 - Essential (primary) hypertension Status: Acute Plan Mr. Welch is a 71 year old male with a history of atrial fibrillation presenting with RUE weakness and confusion. Found to have L HOBBER occlusion. Not a candidate for thrombectomy or tPA. Considering anticoagulation failure as the etiology. - Allow for permissive hypertension - MRI brain w/o contrast, surface echo with bubble study - Check HgbA1c and lipid panel - Recommend switching Xarelto to Eliquis for anticoagulation Consult date: 05/14/22 Time Seen: 09:05 Reason for consult: Concern for stroke HPI: Stephen Welch is a 71 year old male with a history of atrial fibrillation, prior TIA, COPD, HTN, HLD presenting due to R sided weakness. Patient was in his usual state of health on 05/13 evening when he appeared to be slow to respond while watching TV, according to his . She gave him a glass of water to hold in his right hand but he almost dropped it. She also noted he was having difficulty using utencils with his right hand. He was taken to [facility] ED. EKG showed atrial fibrillation. Patient is on Xeralto and reported compliance. NIH was 1 for loss of fluency with language. CT head was negative, but CTA showed L HOBBER occlusion. Case was discussed by ED with [facility] stroke for potential thrombectomy, but patient was not a candidate. Patient did not receive tPA due to him being on Xarelto. BP has been in the 130s-160s systolic. Last LDL is from January 2022 and normal (43). CTA head/neck showed small ammount of atherosclerotic plaque without stenosis as well as normal variant supply of both the left and right anterior cerebral arteries via the R ICA and patent R A1 segment and ACOM. 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 ENT: Reports system reviewed and no additional complaints, except as documented Cardiovascular: Cardiovascular: Reports no additional cardiovascular complaints Respiratory: Respiratory: Reports no additional respiratory complaints Gastrointestinal: Gastrointestinal: Reports no additional gastrointestinal complaints Genitourinary: Genitourinary: Reports no additional male genitourinary complaints Musculoskeletal: Musculoskeletal: Reports arthralgias Integumentary/Breasts: Skin/Breast: Reports system reviewed and no additional complaints, except as docu Neurologic: Reports as per HPI Psychiatric: Psychiatric: Reports depression [facility] Past Medical History Medical History Chronic atrial fibrillation COPD (chronic obstructive pulmonary disease) COVID-19 05/2021 Depression Essential (primary) hypertension Foot drop, left Former smoker No longer active. Pt quit 1989. 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
[2022-05-14] MEDS: PERFLUTREN LIPID MICROSPHERES 1.5 ML VIAL DILUTED TO 10 ML TOTAL VOLUME IV PUSH (13:22)
[2022-05-14] MEDS: ATORVASTATIN 40 MG TABLET 80 MG PO (13:46)
[2022-05-14] MEDS: METOPROLOL SUCCINATE EXT REL 25 MG TABCR BY MOUTH (13:46)
[2022-05-14] MEDS: PANTOPRAZOLE 40 MG TABLET PO (13:47)
[2022-05-14] MEDS: CHOLECALCIFEROL 1,000 UNITS TABLET 2000 UNITS PO (13:47)
[2022-05-14] MEDS: MULTIVITAMINS /C LUTEIN (CENTRUM SILVER) TABLET *BKC 1 TAB PO (13:47)
[2022-05-14] MEDS: LORazepam INJ (*CRX) 2 MG/ML VIAL 0.5 MG IM (13:48)
--- NOTE | 2022-05-14 14:24 | PCPTNOTE ---
Attempted PT evaluation, Per RN, pt going for MRI at this time. Will follow.
--- NOTE | 2022-05-14 14:44 | PM.IMPN ---
Progress Note: A&P Assessment and Plan (1) CVA (cerebral vascular accident): Code(s): I63.9 - Cerebral infarction, unspecified Status: Acute Assessment and Plan: Initially thought to be TIA as the patient's neuro symptoms had resolved by time he arrived to the ER but while he was in the ER the patient developed new expressive aphasia with difficulty word-finding. Brain CT showing no acute findings. CTA of the head and neck showing no acute findings. The patient is compliant with his Xarelto. Neuro consulted. MRI brain has been ordered. Will resume Lipitor. Add ASA. PT/OT/ST evaluation. Discussed with neurologist (2) Essential (primary) hypertension: Code(s): I10 - Essential (primary) hypertension Status: Acute Assessment and Plan: Home med list now available. Will allow for permissive hypertension given setting of acute CVA. Resume metoprolol but hold lasix, lisinopril/hctz and felodipine for now. Monitor BP closely. (3) Chronic atrial fibrillation: Code(s): I48.20 - Chronic atrial fibrillation, unspecified Status: Acute Assessment and Plan: Tele reviewed. Brief episode of NSVT. Resume metoprolol. Change to Eliquis. (4) HAZEL (obstructive sleep apnea): Code(s): G47.33 - Obstructive sleep apnea (adult) (pediatric) Status: Acute Assessment and Plan: Continue CPAP Subjective Date/time seen: 05/14/22 14:44 Interval history: 71yo male with HTN, AFib and HAZEL here for right hand weakness. Patient feels short of breath but this seems to more chronic. He does have COPD. He does not wear oxygen at home. He wears CPAP at night but not oxygen. No nausea or vomiting. He does state his right hand is still weak. He mentions right hand numbness as well. He is mildly confused which is new for him since last night. Family in the and care was discussed. he does have chronic back pain that has resulted in left foot drop. He also has been having right hip pain making it difficult to raise the right leg Exam Narrative: AF 98.3 167/66 83 24 93% ra Gen - NARD lying semi-recumbent in bed Chest - lungs clear anteriorly and in the flanks, nml RR CV - irregularly irregular, Tele showing PVCs and a 7 beat run NSVT Abd - Soft, obese, NT, +BS - Koehler secured draining clear yellow urine Ext - No pedal edema Neuro - Alert and orientedx3 (not aureliano and slow to answer). Operations [employer]als equal but right bicep 5-/5. right hip flexor strength normal but not able to lift leg off bed due to pain. left foot drop. Psych - Nml mood but odd affect Skin - Warm and dry Objective Data Vital Signs Vital Signs: Vital Signs - 24 hr 05/13/22 18:57 05/13/22 19:28 05/13/22 19:04 Temperature 99.0 F Pulse Rate 89 78 77 Respiratory Rate 16 18 Blood Pressure 115/85 Pulse Oximetry 99 Oxygen Delivery Room Air 05/13/22 19:15 05/13/22 19:17 05/13/22 19:30 Temperature Pulse Rate 90 77 78 Respiratory Rate 16 18 16 Blood Pressure 141/68 H Pulse Oximetry Oxygen Delivery 05/13/22 19:31 05/13/22 19:32 05/13/22 19:50 Temperature Pulse Rate 65 65 66 Respiratory Rate 16 12 17 Blood Pressure 163/130 H Pulse Oximetry Oxygen Delivery 05/13/22 20:00 05/13/22 20:02 05/13/22 20:27 Temperature Pulse Rate 63 67 75 Respiratory Rate 21 H 20 23 H Blood Pressure 153/76 H Pulse Oximetry Oxygen Delivery 05/13/22 20:31 05/13/22 20:32 05/13/22 20:45 Temperature Pulse Rate 68 76 76 Respiratory Rate 26 H 18 23 H Blood Pressure 176/84 H Pulse Oximetry Oxygen Delivery 05/13/22 20:47 05/13/22 21:00 05/13/22 21:01 Temperature Pulse Rate 78 87 61 Respiratory Rate 16 18 21 H Blood Pressure 147/77 H 166/102 H Pulse Oximetry Oxygen Delivery 05/13/22 21:15 05/13/22 21:16 05/13/22 21:31 Temperature Pulse Rate 78 73 73 Respiratory Rate 21 H 21 H 21 H Blood Pressure 159/82 H 161/86 H Pulse Oximetry
--- NOTE | 2022-05-14 14:45 | IVDEFINITY ---
Prior to administration of IV Definity the patient was educated on the risks and benefits of the imaging enhancing agent including potential adverse side effects. The patient verbalized understanding. Allergies were verified. No exclusion criteria were identified and at least one of the following inclusion criteria were met: 1) physician request, 2) patient technically difficult to image (per the [place] [employer]ocardi[employer] guidelines of two or more segments not discernable within the apical view), or 3) questionable left ventricular function. ?
[2022-05-14] MEDS: ACETAMINOPHEN 325 MG TABLET 650 MG PO (15:18)
[2022-05-14] MEDS: APIXABAN 5 MG TABLET PO (20:06)
[2022-05-15] VITALS (17 sets, daily range): BP systolic 125–192; BP diastolic 52–95; PULSE 36–77; RESP 16–22; TEMP 36.1–37.6; O2SAT 95–99
[2022-05-15 04:25] LABS: Anion Gap 11 mmol/L (8-16); Blood Urea Nitrogen 15 mg/dL (9-20); Calcium 9.1 mg/dL (8.4-10.2); Carbon Dioxide 22 mmol/L (22-30); Chloride 105 mmol/L (98-107); Estimated CRCL calculation 122 ml/min; Estimated Glomerular Filt Rate > 60; Glucose 126 mg/dL (65-110); Magnesium 2.1 mg/dL (1.6-2.3); Potassium 3.6 mmol/L (3.4-5.0); Sodium 138 mmol/L (137-145)
[2022-05-15] MEDS: FLUTICASONE/UMECLIDIN/VILANTER 100-62.5-25 MCG ELLIPTA 1 PUFF INHALATION (08:19)
[2022-05-15] MEDS: APIXABAN 5 MG TABLET PO ×2 (10:58→20:24)
[2022-05-15] MEDS: CHOLECALCIFEROL 1,000 UNITS TABLET 2000 UNITS PO (10:58)
[2022-05-15] MEDS: PANTOPRAZOLE 40 MG TABLET PO (10:58)
[2022-05-15] MEDS: MULTIVITAMINS /C LUTEIN (CENTRUM SILVER) TABLET *BKC 1 TAB PO (10:58)
[2022-05-15] MEDS: ATORVASTATIN 40 MG TABLET 80 MG PO (10:59)
[2022-05-15] MEDS: METOPROLOL SUCCINATE EXT REL 25 MG TABCR BY MOUTH (10:59)
--- NOTE | 2022-05-15 11:25 | WPDNEUROPN ---
Progress Note: A&P Assessment and Plan (1) CVA (cerebral vascular accident): Code(s): I63.9 - Cerebral infarction, unspecified Status: Acute (2) Chronic atrial fibrillation: Code(s): I48.20 - Chronic atrial fibrillation, unspecified Status: Acute (3) Essential (primary) hypertension: Code(s): I10 - Essential (primary) hypertension Status: Acute Plan Mr. Welch is a 71 year old male with a history of atrial fibrillation presenting with RUE weakness and confusion. Found to have L WIRER HELPER territory infarct. Considering anticoagulation failure as the etiology. - Continue Eliquis 5mg BID, will hold off on aspirin given size of infarct and risk of hemorrhagic conversion - Continue Lipitor 80mg daily - PT evaluation Subjective Date/time seen: 05/15/22 11:25 Interval history: Stephen Welch is a 71 year old male with a history of atrial fibrillation, prior TIA, COPD, HTN, HLD presenting due to R sided weakness. Patient was in his usual state of health on 05/13 evening when he appeared to be slow to respond while watching TV, according to his . She gave him a glass of water to hold in his right hand but he almost dropped it. She also noted he was having difficulty using utensils with his right hand. He was taken to [facility] ED. EKG showed atrial fibrillation. Patient is on Xarelto and reported compliance. NIH was 1 for loss of fluency with language. CT head was negative, but preliminary read on CTA was reported as L WIRER HELPER occlusion. Case was discussed by ED with [facility] stroke for potential thrombectomy, but patient was not a candidate. Patient did not receive tPA due to him being on Xarelto. BP has been in the 130s-160s systolic. Last LDL is from January 2022 and normal (43). CTA head/neck showed small ammount of atherosclerotic plaque without stenosis as well as normal variant supply of both the left and right anterior cerebral arteries via the R ICA and patent R A1 segment and ACOM. No evidence of WIRER HELPER occlusion noted on CTA. MRI showed L WIRER HELPER territory infarct. No shunt or clot noted on surface echo. 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 ENT: Reports system reviewed and no additional complaints, except as documented Cardiovascular: Cardiovascular: Reports no additional cardiovascular complaints Respiratory: Respiratory: Reports no additional respiratory complaints Gastrointestinal: Gastrointestinal: Reports no additional gastrointestinal complaints Genitourinary: Genitourinary: Reports no additional male genitourinary complaints Musculoskeletal: Musculoskeletal: Reports arthralgias Integumentary/Breasts: Skin/Breast: Reports system reviewed and no additional complaints, except as docu Neurologic: Reports as per HPI Psychiatric: Psychiatric: Reports depression Exam Const: General: comfortable and no acute distress HENMT: Mouth: Yes moist mucous membranes Eyes: EOM: EOMs intact bilaterally Resp: Effort & Inspection: normal respiratory effort GI: GI Palp: Yes Soft to palpation Auscultation: normal bowel sounds Skin: General skin exam: normal color Neuro: Other: AOx3, face symmetric, facial sensation intact, tongue protrudes midline, palate midline. Shoulder shrug normal. Strength: RUE 5/5, LUE 5/5, RLE 4/5 proximally (limited due to hip pain), LLE 4+/5. Sensation reduced on in RLE. FNF. Language comprehension intact. Some word finding difficulty. Gait deferred. Extrem: General: normal to inspection Psych: Mental Status: mental status grossly normal Objective Data Vital Signs Vital Signs: Vital Signs - 24 hr 05/14/22 11:29 05/14/22 13:46 05/14/22 12:00 Temperature 36.8 C Pulse Rate 65 83 Respiratory Rate 24 H Blood Pressure 167/66 H Pulse Oximetry 93 Oxygen Delivery Room Air Oxygen Flow Rate 05/14/22 12:00 05/14/22 14:00 05/14
--- NOTE | 2022-05-15 13:23 | PCSTNOTE ---
Bedside swallow evaluation. Trials of uncontrolled amounts of thin liquids by straw, pureed food by spoon and solid food by spoon. Efficient swallowing observed. No signs of aspiration or penetration. Patient's is present and together they report that he had stroke symptoms that appear to be resolving today, including right sided weakness and difficulty holding objects with right hand yesterday. Today he held sherbet cup in left hand and held spoon with right, and successfully ate the entire contents. Recommend regular texture diet and thin liquids. No speech therapy recommended. Thank you for the referral of this patient.
--- NOTE | 2022-05-15 18:23 | PM.IMPN ---
Progress Note: A&P Assessment and Plan (1) CVA (cerebral vascular accident): Code(s): I63.9 - Cerebral infarction, unspecified Status: Acute Assessment and Plan: Initially thought to be TIA as the patient's neuro symptoms had resolved by time he arrived to the ER but while he was in the ER the patient developed new expressive aphasia with difficulty word-finding. Brain CT showing no acute findings. CTA of the head and neck showing no acute findings. The patient is compliant with his Xarelto. Neuro consulted. MRI brain showing acute infarct in left temporal occipital region and in left thalamus. Old right thalamus lacunar infarct. Continue Lipitor. ASA held for now. [place] embolic and that he failed Xarelto so changed to Eliquis. Continue PT/OT. Bedside ST evaluation was normal. Appreciate Neurology input. (2) Essential (primary) hypertension: Code(s): I10 - Essential (primary) hypertension Status: Acute Assessment and Plan: Will allow for permissive hypertension given setting of acute CVA. Continue metoprolol but holding lasix, lisinopril/hctz and felodipine for now. Monitor BP closely. (3) Chronic atrial fibrillation: Code(s): I48.20 - Chronic atrial fibrillation, unspecified Status: Acute Assessment and Plan: Tele reviewed. Continue metoprolol and Eliquis. (4) HAZEL (obstructive sleep apnea): Code(s): G47.33 - Obstructive sleep apnea (adult) (pediatric) Status: Acute Assessment and Plan: Continue CPAP Subjective Date/time seen: 05/15/22 18:23 Interval history: 71yo male with HTN, AFib and HAZEL here for right hand weakness. Patient slept well last night. No chest pain shortness of breath but still has dyspnea on exertion. He was able to stand but not walk yet. He is right handed. He is able to feed himself with his right hand. Exam Narrative: AF 97.9 148/77 64 18 97% ra Gen - NARD sitting up in recliner chair Chest -decreased breath sounds in bases otherwise clear. CV - irregularly irregular, Tele showing rate controlled AFib with PVCs. Abd - Soft, obese, NT, +BS - [place] secured draining clear yellow urine Ext - trace pedal edema Neuro - Alert and orientedx3 (not aureliano name). More alert and quicker with answers. 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 right hip flexor weak related to pain Psych - Nml mood and affect Skin - Warm and dry Objective Data Vital Signs Vital Signs: Vital Signs - 24 hr 05/14/22 20:00 05/14/22 20:00 05/14/22 22:00 Temperature 98.1 F Pulse Rate 50 L 47 L 54 L Respiratory Rate 20 Blood Pressure 117/57 L Pulse Oximetry 95 Oxygen Delivery Oxygen Flow Rate 05/14/22 22:50 05/15/22 00:00 05/15/22 01:57 Temperature 98.5 F Pulse Rate 53 L 55 L Respiratory Rate 24 H 20 Blood Pressure 192/95 H 147/52 H Pulse Oximetry 94 97 Oxygen Delivery Autopap Oxygen Flow Rate 05/15/22 00:00 05/15/22 00:00 05/15/22 02:00 Temperature Pulse Rate 62 37 L Respiratory Rate Blood Pressure Pulse Oximetry Oxygen Delivery CPAP Oxygen Flow Rate 0 05/15/22 03:49 05/15/22 04:00 05/15/22 04:00 Temperature 97.0 F L Pulse Rate 36 L 44 L Respiratory Rate 20 Blood Pressure 141/62 H Pulse Oximetry 99 Oxygen Delivery CPAP Oxygen Flow Rate 0 05/15/22 05:53 05/15/22 08:00 05/15/22 08:22 Temperature 97.4 F L Pulse Rate 52 L 52 L Respiratory Rate 18 Blood Pressure 172/61 H Pulse Oximetry 97 97 Oxygen Delivery Room Air Oxygen Flow Rate 05/15/22 10:06 05/15/22 10:59 05/15/22 11:08 Temperature Pulse Rate 60 Respiratory Rate Blood Pressure Pulse Oximetry Oxygen Delivery Room Air Room Air Oxygen Flow Rate 05/15/22 08:00 05/15/22 10:00 05/15/22 12:00 Temperature 98.2 F Pulse Rate 71 57 L 62 Respiratory Rate 16 Blood Pressure 158/73 H Pulse Oximetry 98 Oxygen Delivery Oxygen Flow Rate 05/15/22 08:00 05/15/22
[2022-05-16] VITALS (15 sets, daily range): BP systolic 128–169; BP diastolic 49–85; PULSE 41–111; RESP 16–24; TEMP 36.5–36.9; O2SAT 95–100
[2022-05-16] MEDS: FLUTICASONE/UMECLIDIN/VILANTER 100-62.5-25 MCG ELLIPTA 1 PUFF INHALATION (07:49)
[2022-05-16] MEDS: ATORVASTATIN 40 MG TABLET 80 MG PO (08:27)
[2022-05-16] MEDS: PANTOPRAZOLE 40 MG TABLET PO (08:27)
[2022-05-16] MEDS: APIXABAN 5 MG TABLET PO ×2 (08:27→19:38)
[2022-05-16] MEDS: CHOLECALCIFEROL 1,000 UNITS TABLET 2000 UNITS PO (08:27)
[2022-05-16] MEDS: METOPROLOL SUCCINATE EXT REL 25 MG TABCR BY MOUTH (08:27)
[2022-05-16] MEDS: MULTIVITAMINS /C LUTEIN (CENTRUM SILVER) TABLET *BKC 1 TAB PO (08:27)
--- NOTE | 2022-05-16 10:03 | PM.IMPN ---
Progress Note: A&P Assessment and Plan (1) CVA (cerebral vascular accident): Code(s): I63.9 - Cerebral infarction, unspecified Status: Acute Assessment and Plan: Initially thought to be TIA as the patient's neuro symptoms had resolved by time he arrived to the ER but while he was in the ER the patient developed new expressive aphasia with difficulty word-finding. Brain CT showing no acute findings. CTA of the head and neck showing no acute findings. The patient is compliant with his Xarelto. Neuro consulted. MRI brain showing acute infarct in left temporal occipital region and in left thalamus. Old right thalamus lacunar infarct. [place] embolic and that he failed Xarelto so changed to Eliquis. Bedside ST evaluation was normal. Continue Lipitor. ASA held for now. Continue PT/OT. Appreciate Neurology input. Okay for discharge once placement or Home therapy arranged. (2) Right hip pain: Code(s): M25.551 - Pain in right hip Status: Acute Assessment and Plan: Patient has significant right hip pain from OA. Xray pending. Ortho consulted for right hip OA since this will impact his rehab. Continue PT/OT. Home or to SNF/Acute rehab depending on how he progresses with therapy. (3) Essential (primary) hypertension: Code(s): I10 - Essential (primary) hypertension Status: Acute Assessment and Plan: Blood pressure reviewed on 05/16 Will allow for permissive hypertension given setting of acute CVA. Continue metoprolol but holding lasix, lisinopril/hctz and felodipine for now. Monitor BP closely. (4) Chronic atrial fibrillation: Code(s): I48.20 - Chronic atrial fibrillation, unspecified Status: Acute Assessment and Plan: Tele reviewed. HR well controlled. Continue metoprolol and Eliquis. (5) HAZEL (obstructive sleep apnea): Code(s): G47.33 - Obstructive sleep apnea (adult) (pediatric) Status: Acute Assessment and Plan: Compliant with treatment. Continue CPAP Subjective Date/time seen: 05/16/22 10:03 Interval history: 71yo male with HTN, AFib and HAZEL here for right hand weakness. Slept poorly last night. Was up to recliner overnight. Tolerated CPAP last night. No CP. SOB but chronic. Exam Narrative: AF 97.8 158/49 75 20 96% ra Gen - NARD sitting up in recliner chair Chest - CTA bilaterally, nml RR CV - irregularly irregular, Tele showing rate controlled AFib with PVCs. Abd - Soft, obese, NT, +BS Ext - trace pedal edema Neuro - Alert and appropriate. Psych - Nml mood and affect Skin - Warm and dry Objective Data Vital Signs Vital Signs: Vital Signs - 24 hr 05/15/22 10:06 05/15/22 10:59 05/15/22 11:08 Temperature Pulse Rate 60 Respiratory Rate Blood Pressure Pulse Oximetry Oxygen Delivery Room Air Room Air Oxygen Flow Rate 05/15/22 12:00 05/15/22 12:00 05/15/22 12:00 Temperature 98.2 F Pulse Rate 62 54 L Respiratory Rate 16 Blood Pressure 158/73 H Pulse Oximetry 98 Oxygen Delivery Room Air Oxygen Flow Rate 05/15/22 16:00 05/15/22 14:00 05/15/22 16:00 Temperature 97.9 F Pulse Rate 67 61 77 Respiratory Rate 18 Blood Pressure 148/77 H Pulse Oximetry 97 Oxygen Delivery Oxygen Flow Rate 05/15/22 16:00 05/15/22 18:00 05/15/22 20:00 Temperature Pulse Rate 64 Respiratory Rate Blood Pressure Pulse Oximetry Oxygen Delivery Room Air Room Air Oxygen Flow Rate 05/15/22 20:00 05/15/22 22:28 05/15/22 23:56 Temperature 99.7 F H 97.9 F Pulse Rate 56 L 55 L 44 L Respiratory Rate 20 20 22 H Blood Pressure 158/83 H 125/55 L Pulse Oximetry 95 96 98 Oxygen Delivery Autopap Oxygen Flow Rate 05/16/22 02:55 05/16/22 00:00 05/15/22 20:00 Temperature Pulse Rate 86 54 L Respiratory Rate 18 Blood Pressure Pulse Oximetry 95 Oxygen Delivery Nasal Cannula Room Air Oxygen Flow Rate 3 05/15/22 22:00 05/16/22
--- NOTE | 2022-05-16 10:46 | PM.CNOR ---
Assessment and Plan Assessment and plan (1) Right hip pain: Code(s): M25.551 - Pain in right hip Status: Acute (2) Arthritis of both hips: Code(s): M16.0 - Bilateral primary osteoarthritis of hip Status: Chronic Plan 71-year-old male who has got severely arthritic hips. It is a little bit worse on the right than on the left but it is pretty significant on both sides. He is only symptomatic however on the right side. His options are really limited at this point because of his recent CVA. I had some point possibly a hip injection could be done but for the time being recommend using a walker full-time and using scheduled Tylenol to try and stay ahead of the discomfort. As far as hip replacement, his BMI would have to be down considerably before he would be considered a candidate for that in my hands. It is possible however that a tertiary center such as [place] may make an exception and given his medical issues that might actually be the better choice for him. Thank you for the consultation. History of Present Illness HPI Consult date: 05/16/22 Consult reason: joint pain (Right hip) Chief complaint: TIA Narrative: 71-year-old male who is admitted after suffering a CVA. I was asked to see him because of pain in his right leg. According the patient, he was due to have an evaluation as an outpatient with Orthopedics for right hip pain which began about a month ago. Prior to that no significant problem with either hip by his report. History of three back surgeries, the last one was an L4-S1 fusion with cages done in 2019. 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 ENT: Reports system reviewed and no additional complaints, except as documented Cardiovascular: Cardiovascular: Reports no additional cardiovascular complaints Respiratory: Respiratory: Reports no additional respiratory complaints Gastrointestinal: Gastrointestinal: Reports no additional gastrointestinal complaints Genitourinary: Genitourinary: Reports no additional male genitourinary complaints Musculoskeletal: Musculoskeletal: Reports arthralgias Integumentary/Breasts: Skin/Breast: Reports system reviewed and no additional complaints, except as docu Neurologic: Reports as per HPI Psychiatric: Psychiatric: Reports depression [facility] Past Medical History Medical History (Updated 05/16/22 @ 10:52 by Clay Candelaria MD) Arthritis of both hips Chronic atrial fibrillation COPD (chronic obstructive pulmonary disease) COVID-19 05/2021 Depression Essential (primary) hypertension Foot drop, left Former smoker No longer active. Pt quit 1989. 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 They have 3 adult children who are healthy. 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 He smoked couple of cigars a day for between 10 in 20 years but quit smoking over 40 years ago. Does not drink alcohol. He ambulates with canes and
[2022-05-16] MEDS: ACETAMINOPHEN 325 MG TABLET 650 MG PO (19:38)
[2022-05-17] VITALS (13 sets, daily range): BP systolic 115–154; BP diastolic 64–85; PULSE 39–95; RESP 20–24; TEMP 36.2–36.7; O2SAT 97–98
[2022-05-17] MEDS: FLUTICASONE/UMECLIDIN/VILANTER 100-62.5-25 MCG ELLIPTA 1 PUFF INHALATION (07:47)
[2022-05-17] MEDS: ACETAMINOPHEN 325 MG TABLET 650 MG PO (10:17)
[2022-05-17] MEDS: APIXABAN 5 MG TABLET PO (10:20)
[2022-05-17] MEDS: ATORVASTATIN 40 MG TABLET 80 MG PO (10:20)
[2022-05-17] MEDS: CHOLECALCIFEROL 1,000 UNITS TABLET 2000 UNITS PO (10:20)
[2022-05-17] MEDS: MULTIVITAMINS /C LUTEIN (CENTRUM SILVER) TABLET *BKC 1 TAB PO (10:20)
[2022-05-17] MEDS: PANTOPRAZOLE 40 MG TABLET PO (10:21)
--- NOTE | 2022-05-17 13:45 | PM.IMPN ---
Progress Note: A&P Assessment and Plan (1) CVA (cerebral vascular accident): Code(s): I63.9 - Cerebral infarction, unspecified Status: Acute Assessment and Plan: Initially thought to be TIA as the patient's neuro symptoms had resolved by time he arrived to the ER but while he was in the ER the patient developed new expressive aphasia with difficulty word-finding. Brain CT showing no acute findings. CTA of the head and neck showing no acute findings. The patient is compliant with his Xarelto. Neuro consulted. MRI brain showing acute infarct in left temporal occipital region and in left thalamus. Old right thalamus lacunar infarct. [place] CVA to be embolic and that he failed Xarelto so changed to Eliquis. Bedside ST evaluation was normal. Continue Lipitor. ASA held for now. Continue PT/OT. Appreciate Neurology input. Okay for discharge once placement or Home therapy arranged. (2) Right hip pain: Code(s): M25.551 - Pain in right hip Status: Acute Assessment and Plan: Patient has significant right hip pain from OA. Xray showing moderate OA of the hips but no fracture. Ortho consulted for right hip OA since this will impact his rehab and appreciate their input. Continue PT/OT. Home or to SNF/Acute rehab per patient/family decision. Scheduled Tylenol ordered. Add prn ultram. (3) Essential (primary) hypertension: Code(s): I10 - Essential (primary) hypertension Status: Acute Assessment and Plan: Blood pressure reviewed on 05/17 We allowed permissive hypertension given setting of acute CVA. We continued metoprolol and held lasix, lisinopril/hctz and felodipine. (4) Chronic atrial fibrillation: Code(s): I48.20 - Chronic atrial fibrillation, unspecified Status: Acute Assessment and Plan: Tele reviewed. HR well controlled. Continue metoprolol and Eliquis. (5) HAZEL (obstructive sleep apnea): Code(s): G47.33 - Obstructive sleep apnea (adult) (pediatric) Status: Acute Assessment and Plan: Compliant with treatment. Continue CPAP Subjective Date/time seen: 05/17/22 13:45 Interval history: 71yo male with HTN, AFib and HAZEL here for right hand weakness. Not tolerating therapy due to right hip pain. Feels well otherwise. No CP. He did wear his BiPAP last night. Exam Narrative: AF 97.2 154/85 69 22 98% ra Gen - NARD sitting up in recliner chair Chest - CTA bilaterally, nml RR CV - irregularly irregular, Tele showing rate controlled AFib with PVCs. Abd - Soft, obese, NT, +BS Ext - trace pedal edema Psych - Nml mood and affect Skin - Warm and dry Objective Data Vital Signs Vital Signs: Vital Signs - 24 hr 05/16/22 14:00 05/16/22 16:00 05/16/22 16:00 Temperature Pulse Rate 68 63 Respiratory Rate Blood Pressure Pulse Oximetry Oxygen Delivery Room Air 05/16/22 16:00 05/16/22 18:00 05/16/22 20:00 Temperature 98.4 F 97.9 F Pulse Rate 111 H 63 46 L Respiratory Rate 16 20 Blood Pressure 169/85 H 141/61 H Pulse Oximetry 96 96 Oxygen Delivery 05/16/22 20:00 05/16/22 20:00 05/16/22 22:00 Temperature Pulse Rate 56 L 49 L Respiratory Rate Blood Pressure Pulse Oximetry Oxygen Delivery Room Air 05/16/22 23:37 05/17/22 00:00 05/17/22 00:00 Temperature 98.1 F Pulse Rate 41 L 49 L Respiratory Rate 20 Blood Pressure 128/66 Pulse Oximetry 98 Oxygen Delivery Room Air 05/17/22 02:00 05/17/22 04:00 05/17/22 04:00 Temperature 98.0 F Pulse Rate 43 L 46 L 46 L Respiratory Rate 20 Blood Pressure 146/82 H Pulse Oximetry 98 Oxygen Delivery 05/17/22 04:00 05/17/22 06:00 05/17/22 08:13 Temperature 97.7 F Pulse Rate 39 L 42 L Respiratory Rate 24 H Blood Pressure 143/64 H Pulse Oximetry 97 Oxygen Delivery Room Air 05/17/22 10:19 05/17/22 11:46 05/17/22 08:00 Temperature 97.2 F L Pulse Rate 48 L 69 46 L Respiratory Rate 2
--- NOTE | 2022-05-17 16:32 | PM.DS ---
DS: Admitting Diagnosis Discharge Date 05/17/22 Admitting Diagnosis Weakness DS: Discharge Diagnosis Discharge Diagnosis (1) CVA (cerebral vascular accident): Code(s): I63.9 - Cerebral infarction, unspecified Status: Acute (2) Right hip pain: Code(s): M25.551 - Pain in right hip Status: Acute (3) Essential (primary) hypertension: Code(s): I10 - Essential (primary) hypertension Status: Acute (4) Chronic atrial fibrillation: Code(s): I48.20 - Chronic atrial fibrillation, unspecified Status: Acute (5) HAZEL (obstructive sleep apnea): Code(s): G47.33 - Obstructive sleep apnea (adult) (pediatric) Status: Acute DS: Summary Hospital Course Reason for hospitalization: 71yo male with HTN, AFib and HAZEL here for weakness. Please see H&P for details. Hospital Course: Initially thought to be TIA as the patient's neuro symptoms had resolved by time he arrived to the ER but while he was in the ER the patient developed new expressive aphasia with difficulty word-finding. Brain CT showing no acute findings. CTA of the head and neck showing no acute findings.? The patient is compliant with his Xarelto.? Neuro consulted. MRI brain showing acute infarct in left temporal occipital region and in left thalamus. Old right thalamus lacunar infarct. [place] CVA to be embolic and that he failed Xarelto so changed to Eliquis. Bedside ST evaluation was normal.? We continued Lipitor. ASA was held. He worked with PT/OT and did well. Patient was having significant right hip pain from OA. Xray showing moderate OA of the hips but no fracture. Ortho consulted for right hip OA since this will impact his rehab and appreciate their input. Patient and family wishing to go home so plans for home with home health. He did well and wa able to be discharged home on 05/17/22. Status at Discharge Cognitive/behavioral status at discharge: stable Time Spent with Patient Time attestation: Total time spent providing and/or coordinating discharge services: 37 minutes Time spent: Greater than 30 minutes Specific discharge activities: Discussion with family Exam Narrative: AF 97.2 154/85 69 22 98% ra Gen - NARD sitting up in recliner chair Chest - CTA bilaterally, nml RR CV - irregularly irregular, Tele showing rate controlled AFib with PVCs. Abd - Soft, obese, NT, +BS Ext - trace pedal edema Psych - Nml mood and affect Skin - Warm and dry Discharge Plan Discharge Attending physician on discharge: Santy Prather Consulting providers: Hyacinth Alejandre ; Clay Candelaria Discharging Clinician: Santy Prather Anticipated Discharge Date/Time: 05/17/22 16:35 Patient Disposition: Home Health Service Activity: as tolerated Diet: heart healthy Discharge Instructions: Care Coordination: Patient to have [facility] for PT/OT and RN. They will contact you to schedule their first visit. They can be reached by telephone, at [phone], if you have any questions. RN Please fax discharge instructions to [phone]. Check blood pressure 1 to 2 times a day. Record and bring into your doctor for review. Call your doctor if your blood pressure is greater than 180/110. Take precautions to avoid falls. Rise slowly from a lying or sitting position. Pause before standing or walking. Contact your doctor or call [phone] and come to the Emergency Room if you have any weakness or other worrisome symptoms. Avoid NSAIDs (ibuprofen, naproxen, Aleve). Tylenol is safe to take. Follow-up with your doctor in 1-2 weeks. Please call for appointment. Follow-up with neurologist in 3-4 weeks. please call for an appointment. please be aware that your medications have changed. Your lisinopril/HCTZ and felodipine have been held. Discuss with your doctor about when to resume these medications. Your furosemide dose has been decreased to once a day. Discussed with your doctor about
== END 2022-05-17 16:00 | disposition home health service (06) | DRG 65 ==
LOC: ANHED 19:11 → ANHIMU 05-14 00:32
PROVIDERS: Emergency Medicine; Admitting Provider Internal Medicine; Emergency Provider Emergency Medicine; PCP Internal Medicine; Visit Provider Internal Medicine
DX: I63.432 Cerebral infarction due to embolism of left posterior cerebral artery (principal); G81.91 Hemiplegia, unspecified affecting right dominant side; I48.20 Chronic atrial fibrillation, unspecified; Z68.41 Body mass index [BMI] 40.0-44.9, adult; R47.01 Aphasia; I10 Essential (primary) hypertension; J44.9 Chronic obstructive pulmonary disease, unspecified; K21.9 Gastro-esophageal reflux disease without esophagitis; E66.01 Morbid (severe) obesity due to excess calories; E78.5 Hyperlipidemia, unspecified; I71.21 Aneurysm of the ascending aorta, without rupture; M21.372 Foot drop, left foot; M16.9 Osteoarthritis of hip, unspecified; H54.40 Blindness, one eye, unspecified eye; R29.701 NIHSS score 1; F32.A Depression, unspecified; Z20.822 Contact with and (suspected) exposure to COVID-19; Z86.73 Personal history of transient ischemic attack (TIA), and cerebral infarction without residual deficits; Z79.01 Long term (current) use of anticoagulants; Z86.711 Personal history of pulmonary embolism; Z86.718 Personal history of other venous thrombosis and embolism; Z87.891 Personal history of nicotine dependence
CPT/HCPCS: 36415; 70450; 70496; 70498; 70551; 71045; 73502; 80048; 80053; 81001; 82948; 83735; 84443; 84484; 85025; 85610; 85730; 87636; 92610; 93005; 94003; 94640; 96372; 96374; 96375; 97110; 97161; 97165; 97530; 97535; 99285; A9270; C8929; G0378; J2060; Q9957; Q9967

== ENCOUNTER 2022-06-17 16:23 | Outpatient (NON) | payer MEDICARE, SELFPAY ==
[2022-06-17 17:00] LABS: Alanine Aminotransferase 50 U/L (6-50); Albumin Level 3.7 g/dL (3.5-5.1); Alkaline Phosphatase 81 U/L (38-126); Anion Gap 7 mmol/L (8-16); Aspartate Amino Transferase 37 U/L (17-59); Bilirubin,Total 0.9 mg/dL (0.2-1.3); Blood Urea Nitrogen 11 mg/dL (9-20); Calcium 8.8 mg/dL (8.4-10.2); Carbon Dioxide 30 mmol/L (22-30); Chloride 99 mmol/L (98-107); Estimated Glomerular Filt Rate > 60; Glucose 142 mg/dL (65-110); Potassium 3.3 mmol/L (3.4-5.0); Sodium 136 mmol/L (137-145)
== END 2022-06-17 16:24 | disposition home or self-care (01) ==
PROVIDERS: PCP Internal Medicine; Visit Provider Physician Assistant
DX: R60.0 Localized edema (principal)
CPT/HCPCS: 36415; 80053

== ENCOUNTER 2023-01-02 19:56 | Emergency (ER) | payer MEDICARE, SELFPAY ==
--- NOTE | ~2023-01-02 | XR_ITS ---
Clinical Indication: Chest pain, shortness of breath AP and lateral views of the chest: Comparison: 05/13/2022 Findings: Moderate left pleural effusion and small right pleural effusion are present.. Cardiomedias tinal silhouette is stable. Bones and soft tissues are unremarkable. Impression: Moderate left pleural effusion and small right pleural effusion. Reviewed, dictated and finalized at location . Impression: Moderate left pleural effusion and small right pleural effusion.
[2023-01-02 19:59] VITALS: BP 171/103; PULSE 95; RESP 14; TEMP 37; O2SAT 93
--- NOTE | 2023-01-02 20:06 | ECG_ITS ---
Measurements Intervals [place] Rate: 81 P: [place]: 0 QRS: 4 QRSD: 97 T: 81 QT: 355 QTc: 414 Interpretive Statements ATRIAL FIBRILLATION VENTRICULAR PREMATURE COMPLEX LOW QRS VOLTAGE IN PRECORDIAL LEADS NONSPECIFIC ST & T-WAVE ABNORMALITY- HIGH LATERAL LEADS BASELINE ARTIFACT- I, II, III, AVR, AVL, AVF, V1 ABNORMAL ECG COMPARED TO ECG 05/13/2022 19:29:35 NO SIGNIFICANT CHANGES Electronically Signed On 01-05-2023 14:40:46 CDT by Nik Daniels D.O.
[2023-01-02 20:29] VITALS: BP 156/72; PULSE 78; RESP 32; TEMP 37.1; O2SAT 94
[2023-01-02 20:36] VITALS: O2SAT 94
--- NOTE | 2023-01-02 21:05 | ED.SOB ---
HPI - SOB/Dyspnea General Chief Complaint: Shortness of Breath/Dyspnea Stated Complaint: SOB Time Seen by Provider: 01/02/23 20:56 Related Data Home Medications Medication Instructions Recorded Confirmed [id number] 1 tablet PO DAILY 05/14/22 11/09/22 cholecalciferol (vitamin D3) 50 2,000 unit PO DAILY 05/14/22 11/09/22 mcg (2,000 unit) tablet alprazolam 0.5 mg tablet 0.5 mg PO DAILY 11/09/22 11/09/22 Allergies Allergy/AdvReac Type Severity Reaction Status Date / Time Sulfa (Sulfonamide Allergy Severe Swelling Verified 01/02/23 20:38 Antibiotics) [facility] Past Medical History Medical History Arthritis of both hips Chronic atrial fibrillation COPD (chronic obstructive pulmonary disease) COVID-19 05/2021 CVA (cerebral vascular accident) Depression Essential (primary) hypertension Foot drop, left Former smoker No longer active. Pt quit 1989. 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 They have 3 adult children who are healthy. 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 He smoked couple of cigars a day for between 10 in 20 years but quit smoking over 40 years ago. Does not drink alcohol. He ambulates with canes and or walker. Code status: Full code Surrogate decision maker: Years smoked: 10 Smoking status: Former smoker Tobacco type: cigars Second hand tobacco smoke exposure: Yes Smoking end date: 07/04/89 Alcohol intake: never Substance use: never Substance use type: does not use Lack of Transportation: No Lack of Food: Never True Current Housing: I Have Housing Concerned About Future Housing: No Difficulty Paying Gas/Electric Bills: No Difficulty Paying for Meds: No Currently Unemployed: No Education: High School Diploma/GED Difficulty w/ Childcare or Family Care: No Living arrangements: with family Gender identity (if verbalized by the patient): Male Spiritual care concerns: No Exam Narrative: GENERAL: Elderly, well-nourished, and in no acute distress. HEAD: Normocephalic, atraumatic. EYES: EOMI. ENT: Nares clear, no rhinorrhea or epistaxis. Mucous membranes moist. Oropharynx without tonsillar hypertrophy exudate or other lesions. NECK: Supple. No adenopathy or masses. CHEST: No respiratory distress. Rales noted in the right lower lung. Left mid to lower lung sounds diminished. No wheezes or rhonchi HEART: Regular rate and rhythm. No murmur heard. Normal peripheral pulses. EXTREMITIES: Normal range of motion. 1+ pitting edema to the bilateral lower extremities SKIN: Warm, dry, no rash. NEURO: No focal deficits. Alert and oriented x3. PSYCH: Normal mood and affect Course Course Emergency Course: Spoke with patient about chest x-ray. It appears he has a large pleural effusion causing his shortness of breath. I recommended further evaluation and treatment inpatient
[2023-01-02 21:39] LABS: Alanine Aminotransferase 24 U/L (6-50); Albumin Level 3.6 g/dL (3.5-5.1); Alkaline Phosphatase 87 U/L (38-126); Anion Gap 4 mmol/L (8-16); Aspartate Amino Transferase 24 U/L (17-59); Bilirubin,Total 1.1 mg/dL (0.2-1.3); Blood Urea Nitrogen 15 mg/dL (9-20); Calcium 8.8 mg/dL (8.4-10.2); Carbon Dioxide 31 mmol/L (22-30); Chloride 103 mmol/L (98-107); Estimated CRCL calculation 117 ml/min; Estimated Glomerular Filt Rate > 60; Glucose 110 mg/dL (65-110); Potassium 3.6 mmol/L (3.4-5.0); Sodium 138 mmol/L (137-145)
[2023-01-02 22:01] LABS: Troponin I < 0.012 ng/mL (0.000-0.034)
[2023-01-02 22:10] LABS: Basophils Percent Auto 0.1 % (0.2-1.2); Eosinophils Absolute Auto 0.1 K/mm3 (0-0.3); Eosinophils Percent Auto 0.8 % (0-4.4); Hematocrit 40.3 % (42.0-52.0); Immature Granulocyte Absolute 0.07 K/mm3 (0.00-0.031); Immature Granulocyte Percent A 0.5 % (0-0.5); Lymphocytes Absolute Auto 1.19 K/mm3 (0.9-3.2); Lymphocytes Percent Auto 8.7 % (18.3-44.2); Mean Corpuscular HGB Conc 32.3 g/dl (32-36); Mean Corpuscular Hemoglobin 26.7 pg (26-34); Mean Corpuscular Volume 82.9 fl (80-100); Monocytes Percent Auto 7.3 % (2.6-8.5); Neutrophils Absolute Auto 11.2 K/mm3 (1.3-6.7); Neutrophils Percent Auto 82.6 % (45.5-73.1); Platelet Count Result 274 k/mm3 (150-375); Red Blood Count 4.86 M/mm3 (4.6-6.20); Red Cell Distribution Width 15.5 % (11.5-14.5); White Blood Count 13.6 K/mm3 (4.5-10.0)
[2023-01-02 22:20] LABS: INR 1.3; Prothrombin Time 16.4 Seconds (11.1-14.7)
[2023-01-02 22:21] LABS: Partial Thromboplastin Time 40.6 SECONDS (22.3-36.8)
--- NOTE | 2023-01-02 23:03 | PCRCNOTE ---
pt refused ABG at this time. Pt leaving AMA.
== END 2023-01-02 23:13 | disposition left against medical advice (07) ==
PROVIDERS: Emergency Provider Physician Assistant; PCP Internal Medicine
DX: R06.02 Shortness of breath (principal); J90 Pleural effusion, not elsewhere classified; I48.91 Unspecified atrial fibrillation; J44.9 Chronic obstructive pulmonary disease, unspecified; F32.A Depression, unspecified; I10 Essential (primary) hypertension; K21.9 Gastro-esophageal reflux disease without esophagitis; G40.909 Epilepsy, unspecified, not intractable, without status epilepticus; M21.372 Foot drop, left foot; E78.5 Hyperlipidemia, unspecified; Z86.73 Personal history of transient ischemic attack (TIA), and cerebral infarction without residual deficits
CPT/HCPCS: 36415; 36600; 71046; 80053; 84484; 85025; 85610; 85730; 93005; 99284

== ENCOUNTER 2023-01-06 16:39 | Inpatient (IN) | payer MEDICARE, SELFPAY ==
[2023-01-06] VITALS (13 sets, daily range): BP systolic 150–164; BP diastolic 70–93; PULSE 58–81; RESP 16–29; TEMP 36.4–36.7; O2SAT 89–95; BMI 41.8
--- NOTE | ~2023-01-06 | US_ITS ---
EXAMINATION: US thoracentesis DATE: 01/07/2023 14:53 INDICATION: pleural effusion TECHNIQUE: The procedure and its risks, benefits, and alternatives were discussed with the patient. P otential risks discussed included bleeding, infection, and pneumothorax. The patient understood the r isks and agreed to proceed. The skin was prepped and draped in sterile fashion. 1% lidocaine was used for local anesthesia. Under ultrasound guidance, a 5 Fr catheter with trochar was advanced into the left pleural effusion. Fluid was aspirated. The catheter was removed, and a dressing was applied. The re were no immediate complications. FINDINGS: Ultrasound images demonstrate a left pleural effusion and the catheter within the fluid. IMPRESSION: 1. Successful ultrasound-guided thoracentesis yielding 1000 mL of clear, elana-colored fluid. Reviewed, dictated and finalized at location A. IMPRESSION: 1. Successful ultrasound-guided thoracentesis yielding 1000 mL of clear, elana -colored fluid.
--- NOTE | ~2023-01-06 | XR_ITS ---
XR chest 2V DATE: 01/06/2023 17:29 INDICATION: Shortness breath, wheezing. History of COPD. TECHNIQUE: PA and lateral views COMPARISON: 01/02/2023 AP and lateral chest FINDINGS: Again noted is large left pleural effusion with associated compressive atelectasis of the l eft lung, opacifying half of the left hemithorax. There is mild right effusion and patchy infiltrate and/or atelectasis in the right mid and lower lung zones. Heart size is not optimally evaluated due to loss of the left cardiac margin due to the left lung ate lectasis and large left pleural effusion. There is aortic arch calcification. IMPRESSION: Bilateral pleural effusions, much larger on the left, with associated prominent left lung compressive atelectasis Mild infiltrate or atelectasis in the right mid and lower lung zones Reviewed, dictated and finalized at location A. IMPRESSION: Bilateral pleural effusions, much larger on the left, with associat ed prominent left lung compressive atelectasis Mild infiltrate or atelectasis in the right mid and lower lung zones
--- NOTE | ~2023-01-06 | XR_ITS ---
EXAMINATION: [id number] DATE: 01/07/2023 14:32 INDICATION: Left pleural effusion status post thoracentesis. TECHNIQUE: A single frontal view of the chest was obtained. COMPARISON: Chest 2 views 01/06/2023, chest CT 07/23/2020 FINDINGS: A calcified right lung nodule is consistent with old granulomatous disease. There are small right and moderate-sized left pleural effusions. There are airspace opacities at left lung base, lik ana atelectasis. No pneumothorax. Cardiomegaly is noted. IMPRESSION: 1. Small right and moderate-sized left pleural effusions with improvement on the left status post tho racentesis. 2. Cardiomegaly. Reviewed, dictated and finalized at location A. IMPRESSION: 1. Small right and moderate-sized left pleural effusions with improvement on th e left status post thoracentesis. 2. Cardiomegaly.
--- NOTE | 2023-01-06 16:43 | ECG_ITS ---
Measurements Intervals [place] Rate: 63 P: [place]: 0 QRS: 4 QRSD: 93 T: 125 QT: 439 QTc: 452 Interpretive Statements ATRIAL FIBRILLATION VENTRICULAR TRIGEMINY INCOMPLETE RIGHT BUNDLE BRANCH BLOCK LOW QRS VOLTAGE IN PRECORDIAL LEADS BORDERLINE ST-T WAVE ABNORMALITY- HIGH LATERAL LEADS BASELINE ARTIFACT- I, II, III, AVR, AVL, AVF ABNORMAL ECG COMPARED TO ECG 01/02/2023 20:11:27 VENTRICULAR TRIGEMINY NOW PRESENT Electronically Signed On 01-06-2023 20:23:34 CDT by Nik Daniels D.O.
[2023-01-06 17:08] LABS: Basophils Percent Auto 0.3 % (0.2-1.2); Eosinophils Absolute Auto 0.2 K/mm3 (0-0.3); Eosinophils Percent Auto 1.5 % (0-4.4); Hemoglobin 12.8 g/dL (14.0-18.0); Immature Granulocyte Absolute 0.04 K/mm3 (0.00-0.031); Immature Granulocyte Percent A 0.4 % (0-0.5); Lymphocytes Absolute Auto 1.09 K/mm3 (0.9-3.2); Mean Corpuscular Hemoglobin 26.6 pg (26-34); Mean Corpuscular Volume 83.2 fl (80-100); Mean Platelet Volume 8.4 fl (7.4-10.4); Monocytes Absolute Auto 0.8 K/mm3 (0.1-0.6); Monocytes Percent Auto 8.1 % (2.6-8.5); Neutrophils Absolute Auto 7.8 K/mm3 (1.3-6.7); Neutrophils Percent Auto 78.7 % (45.5-73.1); Platelet Count Result 275 k/mm3 (150-375); Red Blood Count 4.81 M/mm3 (4.6-6.20); Red Cell Distribution Width 15.6 % (11.5-14.5); White Blood Count 9.9 K/mm3 (4.5-10.0)
[2023-01-06 17:16] LABS: Alanine Aminotransferase 26 U/L (6-50); Albumin Level 3.8 g/dL (3.5-5.1); Alkaline Phosphatase 82 U/L (38-126); Anion Gap 8 mmol/L (8-16); Aspartate Amino Transferase 26 U/L (17-59); Bilirubin,Total 0.6 mg/dL (0.2-1.3); Blood Urea Nitrogen 12 mg/dL (9-20); Calcium 8.9 mg/dL (8.4-10.2); Carbon Dioxide 31 mmol/L (22-30); Chloride 101 mmol/L (98-107); Estimated CRCL calculation 116 ml/min; Estimated Glomerular Filt Rate > 60; Glucose 108 mg/dL (65-110); Potassium 3.5 mmol/L (3.4-5.0); Sodium 140 mmol/L (137-145)
[2023-01-06 17:17] LABS: INR 1.2; Prothrombin Time 15.7 Seconds (11.1-14.7)
[2023-01-06 17:18] LABS: Partial Thromboplastin Time 36.7 SECONDS (22.3-36.8)
[2023-01-06 17:28] LABS: NT Pro B Type Natriuretic Pept 1560 pg/mL (19.9-100); Troponin I < 0.012 ng/mL (0.000-0.034)
--- NOTE | 2023-01-06 18:24 | ED.SOB ---
HPI - SOB/Dyspnea General Chief Complaint: Shortness of Breath/Dyspnea Stated Complaint: dyspnea Time Seen by Provider: 01/06/23 17:57 Source: patient Mode of arrival: ambulatory Limitations: no limitations History of Present Illness HPI Narrative: 72 year old male presents today for complaints of increased sob starting tuesday. Patient has been taking a total of 60 mg of lasix daily. Has a thoracentises scheduled next week but with increasing sob they came in today. Does have some lower right chest discomfort with deep breath intermittently. slight cough. Denies fevers, body aches, chills. Related Data Home Medications Medication Instructions Recorded Confirmed cholecalciferol (vitamin D3) 50 2,000 unit PO DAILY 05/14/22 01/06/23 mcg (2,000 unit) tablet alprazolam 0.5 mg tablet 0.5 mg PO DAILY PRN hs 11/09/22 01/06/23 atorvastatin 80 mg tablet 80 mg PO HS 01/06/23 01/06/23 felodipine 10 mg tablet,extended 10 mg PO HS 01/06/23 01/06/23 release 24 hr furosemide 20 mg tablet (Lasix) 20 mg PO DAILY PRN swelling 01/06/23 01/06/23 sertraline 50 mg tablet 75 mg PO HS 01/06/23 01/06/23 tamsulosin 0.4 mg capsule (Flomax) 0.4 mg PO HS 01/06/23 01/06/23 Allergies Allergy/AdvReac Type Severity Reaction Status Date / Time Sulfa (Sulfonamide Allergy Severe Swelling Verified 01/06/23 16:45 Antibiotics) Review of Systems Review of Systems: All systems reviewed & are unremarkable except as noted in HPI and below ENT: Reports as per HPI Cardiovascular: Cardiovascular: Reports as per HPI Respiratory: Respiratory: Reports as per HPI Gastrointestinal: Gastrointestinal: Reports as per HPI Musculoskeletal: Musculoskeletal: Reports as per HPI Integumentary/Breasts: Skin/Breast: Reports as per HPI Neurologic: Reports as per HPI Psychiatric: Psychiatric: Reports as per HPI PMFSH Past Medical History Medical History Arthritis of both hips Chronic atrial fibrillation COPD (chronic obstructive pulmonary disease) COVID-19 05/2021 CVA (cerebral vascular accident) Depression Essential (primary) hypertension Foot drop, left Former smoker No longer active. Pt quit 1989. 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 They have 3 adult children who are healthy. 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 He smoked couple of cigars a day for between 10 in 20 years but quit smoking over 40 years ago. Does not drink alcohol. He ambulates with canes and or walker. Code status: Full code Surrogate decision maker: Years smoked: 10 Smoking status: Former smoker Tobacco type: cigars Second hand tobacco smoke exposure: Yes Smoking end date: 07/04/89 Alcohol intake: never Substance use: never Substance use type: does not use Lack of Transportation: No Lack of Food: Never True Current Housing: I Have Housing Concerned A
[2023-01-06] MEDS: FUROSEMIDE INJ 100 MG/10 ML VIAL 80 MG IV PUSH (18:33)
[2023-01-07 06:00] VITALS: BP 141/114; PULSE 82; RESP 20; TEMP 36.2; O2SAT 92
[2023-01-07 06:20] LABS: Basophils Percent Auto 0.2 % (0.2-1.2); Eosinophils Absolute Auto 0.2 K/mm3 (0-0.3); Eosinophils Percent Auto 1.7 % (0-4.4); Hematocrit 40.3 % (42.0-52.0); Hemoglobin 12.8 g/dL (14.0-18.0); Immature Granulocyte Absolute 0.04 K/mm3 (0.00-0.031); Immature Granulocyte Percent A 0.4 % (0-0.5); Lymphocytes Absolute Auto 1.34 K/mm3 (0.9-3.2); Lymphocytes Percent Auto 12.5 % (18.3-44.2); Mean Corpuscular HGB Conc 31.8 g/dl (32-36); Mean Corpuscular Hemoglobin 26.1 pg (26-34); Mean Corpuscular Volume 82.1 fl (80-100); Mean Platelet Volume 8.6 fl (7.4-10.4); Monocytes Absolute Auto 0.9 K/mm3 (0.1-0.6); Monocytes Percent Auto 8.1 % (2.6-8.5); Neutrophils Absolute Auto 8.3 K/mm3 (1.3-6.7); Neutrophils Percent Auto 77.1 % (45.5-73.1); Platelet Count Result 286 k/mm3 (150-375); Red Blood Count 4.91 M/mm3 (4.6-6.20); Red Cell Distribution Width 15.4 % (11.5-14.5); White Blood Count 10.7 K/mm3 (4.5-10.0)
[2023-01-07 06:35] LABS: Anion Gap 8 mmol/L (8-16); Blood Urea Nitrogen 13 mg/dL (9-20); Carbon Dioxide 29 mmol/L (22-30); Chloride 100 mmol/L (98-107); Estimated CRCL calculation 116 ml/min; Potassium 3.1 mmol/L (3.4-5.0); Sodium 137 mmol/L (137-145)
[2023-01-07 06:36] LABS: Alanine Aminotransferase 26 U/L (6-50); Albumin Level 3.8 g/dL (3.5-5.1); Alkaline Phosphatase 96 U/L (38-126); Aspartate Amino Transferase 27 U/L (17-59); Bilirubin,Total 0.7 mg/dL (0.2-1.3); Calcium 8.9 mg/dL (8.4-10.2); Estimated Glomerular Filt Rate > 60; Glucose 102 mg/dL (65-110)
--- NOTE | 2023-01-07 07:15 | PM.IMHP ---
H&P: HPI History of Present Illness Date/Time: 01/07/23 06:15 Chief Complaint: Shortness of breath Narrative: Source of information comes from prior interviews with the patient and review of past medical records as well as ER reports. The patient is not currently the best historian although he is alert orient x3. 72-year-old male with a past medical history of COPD, paroxysmal atrial fibrillation, pulmonary hypertension, obstructive sleep apnea and a stroke in May 2022. He presents since the hospital on the evening of the due to difficulty breathing. The patient had been at evaluated in the ER on the 02 of January due to shortness of breath. At that time he was found to have a moderate left pleural effusion has small right pleural effusion. The patient chose not to stay in the hospital at that time left the ER against medical advice. He was scheduled for outpatient thoracentesis for next week. He is taking 40 mg of Lasix daily and an additional 20 mg of Lasix as needed. He reports at times that he is urinating too much. He denies any dysuria. He has not had any fevers or chills. He occasionally will have a small amount of sputum production but this is unchanged from his baseline. He has had a few episodes where he has had some chest discomfort with deep breathing that is been intermittent and inconsistent in nature. He denies any nasal congestion rhinorrhea body aches or recent ill contacts. He could not deal with the shortness of breath and decided come into the ER. He blames a lot of his shortness of breath on his overall immobility since he had his stroke May of 2022. He has chronic lower extremity edema unchanged from baseline. Review of Systems Review of Systems: 12 systems were reviewed with pertinent positives and negatives per HPI. Except as documented in the HPI, all other systems were reviewed and are negative. 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 He reports his last bowel movement was yesterday. He denies any hematochezia or melena. He denies difficulty emptying his bladder. He reports chronic lower extremity edema. He PMFSH Past Medical History Medical History (Updated 01/07/23 @ 07:32 by Ligia Benitez DO) Arthritis of both hips Chronic atrial fibrillation COPD (chronic obstructive pulmonary disease) COVID-19 05/2021 CVA (cerebral vascular accident) Depression Essential (primary) hypertension Foot drop, left Former smoker No longer active. Pt quit 1989. 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 They have 3 adult children who are healthy. 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 He smoked couple of cigars a day for between 10 in 20 years but quit smoking over 40 years ago. Does not drink alcohol. He ambulates with canes and or walker. Code status: Full code Surrogate decision maker: Years smoked: 10 Smoking status
[2023-01-07] MEDS: POTASSIUM CHLORIDE 20 MEQ ER TABLET 40 MEQ PO (08:20)
[2023-01-07] MEDS: POTASSIUM CHLORIDE 10 MEQ ER TABLET PO ×2 (08:20→17:52)
[2023-01-07] MEDS: PANTOPRAZOLE 40 MG TABLET PO (08:20)
[2023-01-07] MEDS: CHOLECALCIFEROL 1,000 UNITS TABLET 2000 UNITS PO (08:20)
[2023-01-07] MEDS: ACETAMINOPHEN 325 MG TABLET 650 MG PO ×3 (08:20→17:52)
[2023-01-07] MEDS: FUROSEMIDE INJ 40 MG/4 ML VIAL IV PUSH ×2 (08:21→17:52)
[2023-01-07 08:45] LABS: Cholesterol 114 mg/dL (0-200); Lactate Dehydrogenase 147 U/L (120-246)
[2023-01-07] MEDS: FLUTICASONE/UMECLIDIN/VILANTER 100-62.5-25 MCG ELLIPTA 1 PUFF INHALATION (09:37)
[2023-01-07 09:38] VITALS: O2SAT 95
[2023-01-07 14:00] VITALS: BP 135/87; PULSE 112; RESP 18; TEMP 36.3; O2SAT 98
[2023-01-07 14:49] VITALS: BP 161/91; O2SAT 95
--- NOTE | 2023-01-07 14:54 | PM.IMPN ---
Progress Note: A&P Assessment and Plan (1) Pleural effusion: Code(s): J90 - Pleural effusion, not elsewhere classified Status: Acute Assessment and Plan: Patient presents with complaints of shortness of breath. Chest x-ray shows bilateral pleural effusions left greater than right with associated atelectasis. Images were reviewed personally. He underwent ultrasound-guided thoracentesis with removal of 1 L of clear elana colored fluid from the left chest. He tolerated the procedure well. Symptomatic he feels better. Appropriate testing has been ordered. Suspect this is related to CHF but will await final results given that it is mostly unilateral. (2) Chronic a-fib: Code(s): I48.20 - Chronic atrial fibrillation, unspecified Status: Acute Assessment and Plan: Patient with chronic atrial fibrillation. He is not on rate controlling agents. Eliquis on hold for the thoracentesis but will resume this. Continue to monitor. (3) Pulmonary hypertension: Code(s): I27.20 - Pulmonary hypertension, unspecified Status: Acute Assessment and Plan: Patient has known pulmonary hypertension. His RVSP was 52 last year in October. Repeat echo in May at the time of the stroke showed the RVSP was 44mmHg. Prior related to his sleep apnea. (4) Edema of both legs: Code(s): R60.0 - Localized edema Status: Acute Assessment and Plan: This appears to be chronic. Patient is on Eliquis so doubtful that he has DVT. Suspect the edema is either related to CHF and/or pulmonary hypertension. Agree with IV Lasix. Monitor fluid status. (5) HAZEL (obstructive sleep apnea): Code(s): G47.33 - Obstructive sleep apnea (adult) (pediatric) Status: Acute Assessment and Plan: Patient with sleep apnea. Will order auto BiPAP. Encourage compliance. (6) History of CVA (cerebrovascular accident): Code(s): Z86.73 - Personal history of transient ischemic attack (TIA), and cerebral infarction without residual deficits Status: Acute Assessment and Plan: Patient with a history recent CVA in May 2022. Brain MRI showed acute infarct in left temporal occipital region and acute infarct in left thalamus. CTA of the head neck did not show any acute findings. Not on aspirin but on Eliquis. Also on atorvastatin. Start PT OT Subjective Date/time seen: 07/07/23 14:54 Interval history: 72yo male with HAZEL, hx of CVA, HTN, cAFib and COPD here shortness of breath. Patient feels short of breath. He has orthopnea. Has chronic pedal edema which not changed significantly. Does not check daily weights. Exam Narrative: AF 97.4 161/91 112 18 95% RA Gen - NARD sitting up in a chair Chest -decreased breath sounds mid and lower lung mendoza left worse than right. Normal respiratory CV -irregularly irregular. S1-S2. Abd - Soft, obese nontender Ext - 2+ pedal edema Psych - Nml mood and affect Skin - Warm and dry Objective Data Vital Signs Vital Signs: Vital Signs - 24 hr 01/06/23 16:40 01/06/23 18:15 01/06/23 18:15 Temperature 97.5 F L Pulse Rate 70 69 Respiratory Rate 16 Blood Pressure 151/87 H Pulse Oximetry 95 93 Oxygen Delivery Room Air 01/06/23 18:15 01/06/23 17:46 01/06/23 18:01 Temperature Pulse Rate 63 70 71 Respiratory Rate 26 H 25 H 28 H Blood Pressure 153/81 H Pulse Oximetry 93 89 L 93 Oxygen Delivery 01/06/23 18:15 01/06/23 18:18 01/06/23 18:30 Temperature Pulse Rate 69 67 69 Respiratory Rate 29 H 28 H 24 H Blood Pressure 153/81 H Pulse Oximetry 92 94 91 Oxygen Delivery 01/06/23 18:46 01/06/23 18:47 01/06/23 19:00 Temperature Pulse Rate 64 58 L 81 Respiratory Rate 21 H 23 H 22 H Blood Pressure 164/80 H Pulse Oximetry 92 92 Oxygen Delivery 01/06/23 19:02 01/06/23 19:45 01/06/23 20:45 Temperature 98.1 F Pulse Rate 80 80 79 Respiratory Rate 27 H
[2023-01-07 15:09] LABS: pH Pleural Fluid > 0.000 (7.210-7.500)
[2023-01-07 16:14] LABS: Appearance Pleural Fluid Clear (Clear); Color Pleural Fluid Brown (Colorless); Lymphocytes Pleural Fluid 28 %; Macrophages Pleural Fluid 49 %; Mesothelial Cells Pleural Flui 8 %; Neutrophils Pleural Fluid 11 % (0-25); Nucleated Cell Pleural Fluid 311 /uL (0-1000); Pleural fluid source Pleural fluid; RBC Pleural Fluid 2000 /uL (0-0)
[2023-01-07 16:17] LABS: Other Cells Pleural Fluid 4 %
--- NOTE | 2023-01-07 17:46 | PCRCNOTE ---
Patient stated they did not want a CPAP at this time.
[2023-01-07] MEDS: FELODIPINE 5 MG TAB CR 10 MG PO (20:32)
[2023-01-07] MEDS: TAMSULOSIN HCL 0.4 MG CAPSULE PO (20:32)
[2023-01-07] MEDS: APIXABAN 5 MG TABLET PO (20:32)
[2023-01-07] MEDS: SERTRALINE HCL 25 MG TABLET 75 MG PO (20:32)
[2023-01-07] MEDS: ATORVASTATIN 40 MG TABLET 80 MG PO (20:32)
[2023-01-07 20:47] VITALS: BP 138/71; PULSE 88; RESP 18; TEMP 36.8; O2SAT 96
[2023-01-08 05:06] VITALS: BP 115/69; PULSE 77; RESP 20; TEMP 36.6; O2SAT 94
[2023-01-08 06:09] LABS: Anion Gap 6 mmol/L (8-16); Blood Urea Nitrogen 21 mg/dL (9-20); Calcium 8.9 mg/dL (8.4-10.2); Carbon Dioxide 30 mmol/L (22-30); Chloride 100 mmol/L (98-107); Estimated CRCL calculation 102 ml/min; Estimated Glomerular Filt Rate > 60; Glucose 143 mg/dL (65-110); Potassium 3.2 mmol/L (3.4-5.0); Sodium 136 mmol/L (137-145)
[2023-01-08] MEDS: FLUTICASONE/UMECLIDIN/VILANTER 100-62.5-25 MCG ELLIPTA 1 PUFF INHALATION (09:00)
[2023-01-08 09:01] VITALS: O2SAT 96
[2023-01-08] MEDS: CHOLECALCIFEROL 1,000 UNITS TABLET 2000 UNITS PO (09:08)
[2023-01-08] MEDS: FUROSEMIDE INJ 40 MG/4 ML VIAL IV PUSH (09:09)
[2023-01-08] MEDS: APIXABAN 5 MG TABLET PO (09:09)
[2023-01-08] MEDS: PANTOPRAZOLE 40 MG TABLET PO (09:09)
[2023-01-08] MEDS: POTASSIUM CHLORIDE 10 MEQ ER TABLET PO (09:09)
[2023-01-08] MEDS: POTASSIUM CHLORIDE 20 MEQ ER TABLET 40 MEQ PO (09:10)
--- NOTE | 2023-01-08 12:44 | PM.DS ---
DS: Admitting Diagnosis Discharge Date 01/08/23 Admitting Diagnosis Shortness of breath DS: Discharge Diagnosis Discharge Diagnosis (1) Pleural effusion: Code(s): J90 - Pleural effusion, not elsewhere classified Status: Acute (2) Chronic a-fib: Code(s): I48.20 - Chronic atrial fibrillation, unspecified Status: Acute (3) Pulmonary hypertension: Code(s): I27.20 - Pulmonary hypertension, unspecified Status: Acute (4) Edema of both legs: Code(s): R60.0 - Localized edema Status: Acute (5) HAZEL (obstructive sleep apnea): Code(s): G47.33 - Obstructive sleep apnea (adult) (pediatric) Status: Acute (6) History of CVA (cerebrovascular accident): Code(s): Z86.73 - Personal history of transient ischemic attack (TIA), and cerebral infarction without residual deficits Status: Acute DS: Summary Hospital Course Reason for hospitalization: 72yo male with HAZEL, hx of CVA, HTN, cAFib and COPD here shortness of breath. Please see H&P for details. Hospital Course: Patient presented with complaints of shortness of breath.? Chest x-ray shows bilateral pleural effusions left greater than right with associated atelectasis.?Findings similar to CXR on 01/03/23 but new from CXR 05/13/22.? Eliquis was held and he underwent ultrasound-guided thoracentesis with removal of 1 L of clear elana colored fluid from the left chest.? He tolerated the procedure well.? Symptomatic he feels better.? Appropriate testing were ordered.? 2K RBC/11 WBC with normal differential but with 4% eosinophils. No peripheral eosinophilia. Few WBC but no oganisms. Probably related to CHF. Echo from May 2022 reviewed. Other pleural fluid testing pending. Patient with chronic atrial fibrillation.? He is not on rate controlling agents.? Eliquis was on hold for the thoracentesis but was resumed. Patient has known pulmonary hypertension.? His RVSP was 52 last year in October.? Repeat echo in May at the time of the stroke showed the RVSP was 44mmHg.? Probably related to his sleep apnea. Patient appears to have chronic edema of both legs.? Patient is on Eliquis so doubtful that he has DVT.? Suspect the edema is either related to CHF and/or pulmonary hypertension.? He was reated with IV Lasix with benefit.?Patient with sleep apnea.? We ordered auto BiPAP here. Patient with a history recent CVA in May 2022 with Brain MRI showed acute infarct in left temporal occipital region and left thalamus.? CTA of the head neck did not show any acute findings.? Not on aspirin but on Eliquis.? Also on atorvastatin.?His felodipine may be contributing to his pedal edema. He overall did well and was requesting discharge. He was able to be discharged home on 01/08/23 Status at Discharge Cognitive/behavioral status at discharge: stable Time Spent with Patient Time attestation: Total time spent providing and/or coordinating discharge services: 35 minutes Time spent: Greater than 30 minutes Exam Narrative: AF 97.9 115/69 77 20 96% RA Gen - NARD sitting up in a chair Chest -decreased breath sounds mid and lower left lung mendoza. Normal respiratory CV -irregularly irregular. S1-S2. Abd - Soft, obese nontender Ext - 1+ pedal edema with compression hose in place Psych - Nml mood and affect Skin - Warm and dry DS: Data Data Completed and Pending Pending studies at discharge: Pending at discharge 01/07/23 07:09 Cytology [PTH] Routine Labs on day of discharge: Labs from last 24 hours 01/08/23 01/07/23 01/07/23 05:44 14:20 13:59 Sodium 136 L Potassium 3.2 L Chloride 100 Carbon Dioxide 30 Anion Gap 6 L BUN 21 H Creatinine 0.80 Estim Creat Clear Calc 102 Estimated GFR > 60 Glucose 143 H Calcium 8.9 Magnesium 2.0 Pleural Fluid Source Pleural fluid Pleural Color Brown Pleural Appearance Clear Pleural pH > 0.000 L Pleural RBC 2000 H Pleu
[2023-01-11 03:45] LABS: Glucose Pleural Fluid 98 mg/dL; LDH Pleural Fluid 134 U/L; Total Protein Pleural Fluid 4.5 g/dL
[2023-01-11 21:31] LABS: Albumin Pleural Fluid 2.9 g/dL
--- NOTE | 2023-01-12 08:27 | PC.NURSE ---
Pleural fluid WNL. Cytology shows benign mesothelial cells. Dr. Yamilka wright.
[2023-01-12 12:26] LABS: Amylase, Pleural Fluid 11 U/L
--- NOTE | 2023-01-14 08:42 | PC.NURSE ---
Pleural fluid Amylas is 11, WNL. Pleural cx is negative. Dr. Yamilka wright.
== END 2023-01-08 14:20 | disposition home or self-care (01) | DRG 187 ==
LOC: ANHED 18:00 → ANH3MED 19:58
PROVIDERS: Emergency Medicine; Admitting Provider Internal Medicine; Emergency Provider Nurse Practitioner Family; PCP Internal Medicine; Visit Provider Internal Medicine
DX: J90 Pleural effusion, not elsewhere classified (principal); I48.20 Chronic atrial fibrillation, unspecified; Z68.41 Body mass index [BMI] 40.0-44.9, adult; I27.20 Pulmonary hypertension, unspecified; G47.33 Obstructive sleep apnea (adult) (pediatric); J44.9 Chronic obstructive pulmonary disease, unspecified; E66.01 Morbid (severe) obesity due to excess calories; K21.9 Gastro-esophageal reflux disease without esophagitis; Z86.73 Personal history of transient ischemic attack (TIA), and cerebral infarction without residual deficits; Z86.16 Personal history of COVID-19; Z87.891 Personal history of nicotine dependence; Z98.1 Arthrodesis status
CPT/HCPCS: 32555; 36415; 71046; 80048; 80053; 82042; 82150; 82465; 82945; 83615; 83735; 83880; 83986; 84157; 84311; 84478; 84484; 85025; 85610; 85730; 87070; 87075; 87205; 88108; 88184; 88305; 89051; 93005; 94640; 96374; 96376; 97161; 97165; 99285; A9270; G0378; J1940

== ENCOUNTER 2023-01-11 13:03 | Outpatient (CLI) | payer MEDICARE, SELFPAY ==
[2023-01-11 13:43] LABS: Anion Gap 4 mmol/L (8-16); Blood Urea Nitrogen 13 mg/dL (9-20); Calcium 8.9 mg/dL (8.4-10.2); Carbon Dioxide 30 mmol/L (22-30); Chloride 101 mmol/L (98-107); Estimated Glomerular Filt Rate > 60; Glucose 113 mg/dL (65-110); Potassium 3.9 mmol/L (3.4-5.0); Sodium 135 mmol/L (137-145)
== END 2023-01-11 13:04 | disposition home or self-care (01) ==
PROVIDERS: PCP Internal Medicine; Visit Provider Internal Medicine
DX: R60.0 Localized edema (principal)
CPT/HCPCS: 36415; 80048

== ENCOUNTER 2023-06-08 11:58 | Outpatient (CLI) | payer MEDICARE, SELFPAY ==
--- NOTE | ~2023-06-08 | XR_ITS ---
XR chest 2V 06/08/2023 12:18 Indication: Cough and shortness of breath Procedure: PA and lateral views of the chest Comparison: Comparison to multiple prior studies sequentially, with oldest reviewed study dated 05/04. Findings: Moderate bilateral pleural effusions, right greater than left. Bibasilar atelectasis. Cardi omegaly. No pneumothorax. Impression: 1: Chronic bilateral pleural effusions with underlying compressive atelectasis. Reviewed, dictated and finalized at location B. 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
== END 2023-06-08 11:59 | disposition home or self-care (01) ==
LOC: ANHIMG 12:00
PROVIDERS: PCP Internal Medicine; Visit Provider Physician Assistant
DX: R05.9 Cough, unspecified (principal); J90 Pleural effusion, not elsewhere classified; J98.11 Atelectasis
CPT/HCPCS: 71046

== ENCOUNTER 2023-09-27 19:32 | Emergency (ER) | payer MEDICARE, SELFPAY ==
[2023-09-27 19:44] VITALS: BP 105/77; PULSE 70; RESP 16; TEMP 36.9; O2SAT 99
--- NOTE | 2023-09-27 20:17 | ED.GENADULT ---
HPI - General Adult General Chief complaint: Extremity Injury, Upper Stated complaint: lump on left elbow from fall Source: patient Mode of arrival: ambulatory Limitations: no limitations History of Present Illness HPI narrative: Patient presents for evaluation after experiencing a fall prior to arrival. He indicates he tripped over a pallet while at home. He fell and landed on his right arm. He now has swelling in the right elbow without any considerable pain. No loss of ROM. He indicates he scratched his head on an unknown surface during the fall. He is anticoagulated with Eliquis for atrial fibrillation. His current mobility is ambulatory with two canes following a stroke. Denies headache, vomiting following the fall or any neurological changes. Related Data Home Medications Medication Instructions Recorded Confirmed cholecalciferol (vitamin D3) 50 2,000 unit PO DAILY 05/14/22 09/27/23 mcg (2,000 unit) tablet Nasal [place] (sodium chloride) 1 spray EACH NARE DAILY PRN 01/06/23 09/27/23 Congestion lisinopril 10 mg tablet 10 mg PO DAILY 04/21/23 09/27/23 memantine 10 mg tablet 10 mg PO QPM 07/13/23 09/27/23 sertraline 100 mg tablet 100 mg DIRECTED 09/27/23 09/27/23 Allergies Allergy/AdvReac Type Severity Reaction Status Date / Time Sulfa (Sulfonamide Allergy Severe Swelling Verified 09/07/23 10:22 Antibiotics) Review of Systems Review of Systems: CONSTITUTIONAL: Denies fever, chills, or sweats. EYES: Denies visual changes, redness, or discharge. ENT: Denies rhinorrhea, congestion, sore throat, or otalgia. CARDIOVASCULAR: Denies chest pain, palpitations, or edema. RESPIRATORY: Denies cough or dyspnea. GASTROINTESTINAL: Denies abdominal pain, nausea, vomiting, or diarrhea. GENITOURINARY: Denies dysuria or hematuria. SKIN: Reports wound to the forehead. MUSCULOSKELETAL: reports swelling to the right elbow without pain. NEUROLOGIC: Denies headache, numbness, dizziness, or weakness. PSYCHIATRIC: Denies anxiety or depression. [facility] Past Medical History Medical History Arthritis of both hips Chronic atrial fibrillation COPD (chronic obstructive pulmonary disease) COVID-19 05/2021 CVA (cerebral vascular accident) Depression Essential (primary) hypertension Foot drop, left Former smoker No longer active. Pt quit 1989. 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 They have 3 adult children who are healthy. 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 He smoked couple of cigars a day for between 10 in 20 years but quit smoking over 40 years ago. Does not drink alcohol. He ambulates with canes and or walker. Code status: Full code Surrogate decision maker: Caffeine-diet soda Years smoked: 10 Smoking status: Former smoker Tobacco type: cigars Second hand tobacco smoke exposure: Yes
== END 2023-09-27 20:12 | disposition short-term general hospital (02) ==
PROVIDERS: Emergency Provider Nurse Practitioner; PCP Internal Medicine
DX: S50.01XA Contusion of right elbow, initial encounter (principal); S09.90XA Unspecified injury of head, initial encounter; W18.09XA Striking against other object with subsequent fall, initial encounter; Z87.891 Personal history of nicotine dependence; M16.0 Bilateral primary osteoarthritis of hip; I48.20 Chronic atrial fibrillation, unspecified; J44.9 Chronic obstructive pulmonary disease, unspecified; I10 Essential (primary) hypertension; K21.9 Gastro-esophageal reflux disease without esophagitis; E66.01 Morbid (severe) obesity due to excess calories; Z68.41 Body mass index [BMI] 40.0-44.9, adult; F32.A Depression, unspecified; Z86.73 Personal history of transient ischemic attack (TIA), and cerebral infarction without residual deficits; Z86.711 Personal history of pulmonary embolism; Z86.16 Personal history of COVID-19
CPT/HCPCS: 99212; G0463

== ENCOUNTER 2023-09-27 20:32 | Emergency (ER) | payer MEDICARE, SELFPAY ==
--- NOTE | ~2023-09-27 | CT_ITS ---
EXAMINATION: CT brain wo con INDICATION: Head injury COMPARISON: 05/13/2022 TECHNIQUE: Standard unenhanced head CT. The dose-length product (DLP) was 681.00 mGy-cm. The mA was a djusted according to patient size. Iterative reconstruction technique was employed. FINDINGS: No acute intraparenchymal hemorrhage. No evidence of mass lesion. No evidence of acute infa rction. There is an old left temporal occipital region infarct. There is mild periventricular and sub cortical hypodensity probably related to small vessel ischemic disease. There is mild prominence of t he sulci and ventricles related to cerebral atrophy. Intracranial calcified cerebral atherosclerosis is noted. No extra-axial collections. No mass effect or midline shift. The orbits and soft tissues ar e unremarkable. There is near complete opacification of the left maxillary sinus and the left ethmoid al air cells. There is mild mucosal thickening of the right maxillary sinus. IMPRESSION: 1. Areas of prior infarction without acute intracranial abnormality. 2. Age related findings. 3. Sinus disease. Reviewed, dictated and finalized at location F.
--- NOTE | ~2023-09-27 | XR_ITS ---
EXAMINATION: XR elbow RT min 3V INDICATION: Right elbow pain TECHNIQUE: Three views of the right elbow were obtained. COMPARISON: None available FINDINGS: Bone alignment is normal. There is no fracture. There is a large posterior soft tissue jonathan grisel overlying the olecranon. There is mild osteoarthritis of the elbow. IMPRESSION: 1. Posterior soft tissue swelling without acute osseous abnormality. Reviewed, dictated and finalized at location F.
[2023-09-27 20:36] VITALS: BP 174/62; PULSE 64; RESP 16; TEMP 36.4; O2SAT 97
[2023-09-27] MEDS: TETANUS,DIPHTHERIA,AC PERTUSSIS ADULT (0.5 ML) BOOSTRIX IM (21:02)
--- NOTE | 2023-09-27 21:30 | ED.FALL ---
HPI - Fall General Chief Complaint: Fall Stated Complaint: fall while on blood thinners Time Seen by Provider: 09/27/23 20:48 Source: patient Mode of arrival: ambulatory Limitations: no limitations History of Present Illness HPI Narrative: Patient is a 73-year-old male who presents the ED with report of a fall. Patient reports he was attempting to fruit or nut picker a heavy pallet when he fell forward, hitting his head on the ground. Did not lose consciousness. Sustained small abrasion to his right forehead. He also injured his right elbow and has since developed swelling and bruising to the elbow. He was seen at an urgent care and referred here for further evaluation. Patient denies significant elbow pain. Denies dizziness, lightheadedness, vision changes, neck or back pain. He is on Eliquis due to history of AFIB/pulmonary embolism. Related Data Home Medications Medication Instructions Recorded Confirmed cholecalciferol (vitamin D3) 50 2,000 unit PO DAILY 05/14/22 09/27/23 mcg (2,000 unit) tablet Nasal [place] (sodium chloride) 1 spray EACH NARE DAILY PRN 01/06/23 09/27/23 Congestion lisinopril 10 mg tablet 10 mg PO DAILY 04/21/23 09/27/23 memantine 10 mg tablet 10 mg PO QPM 07/13/23 09/27/23 sertraline 100 mg tablet 100 mg DIRECTED 09/27/23 09/27/23 Allergies Allergy/AdvReac Type Severity Reaction Status Date / Time Sulfa (Sulfonamide Allergy Severe Swelling Verified 09/27/23 20:47 Antibiotics) Review of Systems Review of Systems: CONSTITUTIONAL: Denies fever, chills, or sweats. ENT: Denies Vision changes CARDIOVASCULAR: Denies chest pain. RESPIRATORY: Denies dyspnea. GASTROINTESTINAL: Denies abdominal pain, nausea, vomiting. MUSCULOSKELETAL: See HPI. NEUROLOGIC: See HPI. All systems reviewed & are unremarkable except as noted in HPI and below PMFSH Past Medical History Medical History Arthritis of both hips Chronic atrial fibrillation COPD (chronic obstructive pulmonary disease) COVID-19 05/2021 CVA (cerebral vascular accident) Depression Essential (primary) hypertension Foot drop, left Former smoker No longer active. Pt quit 1989. 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 They have 3 adult children who are healthy. 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 He smoked couple of cigars a day for between 10 in 20 years but quit smoking over 40 years ago. Does not drink alcohol. He ambulates with canes and or walker. Code status: Full code Surrogate decision maker: Caffeine-diet soda Years smoked: 10 Smoking status: Former smoker Tobacco type: cigars Second hand tobacco smoke exposure: Yes Alcohol intake: never Substance use: never Substance use type: does not use Lack of Transportation: No Lack of Food: Never True Current Housing: I Have Housing Concern
[2023-09-27 21:56] VITALS: BP 159/84; PULSE 76; RESP 18; O2SAT 94
== END 2023-09-27 21:56 | disposition home or self-care (01) ==
PROVIDERS: Emergency Provider Physician Assistant; PCP Internal Medicine
DX: S09.90XA Unspecified injury of head, initial encounter (principal); S50.01XA Contusion of right elbow, initial encounter; Z79.01 Long term (current) use of anticoagulants; Z23 Encounter for immunization; I48.91 Unspecified atrial fibrillation; F32.A Depression, unspecified; K21.9 Gastro-esophageal reflux disease without esophagitis; G47.30 Sleep apnea, unspecified; Z86.73 Personal history of transient ischemic attack (TIA), and cerebral infarction without residual deficits; Z86.711 Personal history of pulmonary embolism; W19.XXXA Unspecified fall, initial encounter
CPT/HCPCS: 70450; 73080; 90471; 90715; 99284

== ENCOUNTER 2024-04-30 07:29 | Outpatient (CLI) | payer MEDICARE, SELFPAY ==
--- NOTE | 2024-04-20 09:37 | PC.NURSE ---
Pre Radiology instructions Report to the outpatient [facility] on date _04/30/24____ at time _07:30am for procedure Time: _09:30am___ YOU MAY BE MONITORED AT HOSPITAL FOR UP TO 4 HOURS AFTER YOUR PROCEDURE. A visitor will be allowed to accompany the patient into the hospital. You and your visitor will be asked to self-screen and do not enter if you have any COVID symptoms. A mask is OPTIONAL within the hospital. Patients are to have no food or drink 6 hours prior to procedure time Driving will be restricted after the procedure, you must have a person to drive you home. Labs will be drawn in preop area and once reviewed, you will be taken to radiology area for procedure. When the procedure is completed, you will be taken to outpatient where you will be monitored for several hours. You may have one visitor in this area. Other than holding anti-coagulants, patient may take other medication(s) as scheduled. Prior to your appointment date patients are instructed to hold anti-coagulants after discussing with ordering provider to stop. If unable to discontinue anti-coagulants please notify radiologist. ? No aspirin or warfarin (Coumadin) for 7 days prior to the procedure. ? No clopidogrel (Plavix), ticagrelor (Brilinta), prasugrel (Effient) or dabigatran (Pradaxa) for 5 days prior to the procedure. ? No rivaroxaban (Xarelto), apixaban (Eliquis), dipyridamole (Aggrenox or Persantine) or cilostazol (Pletal) for 2 days prior to the procedure. Medications to discontinue per physician: __Eliquis 2 days prior Date to take last dose: ___04/27/24 Please leave all valuables, including medications, at home the day of procedure. The hospital will not accept responsibility for valuables. Wear comfortable, loose fitting clothing.? Follow any additional instructions given to you from ordering provider. Telephone instructions given to _patient and asked if any additional questions and then verbalized understanding. Patient advised to call scheduling provider office or registration scheduling [phone] if any additional questions.
[2024-04-20 09:54] VITALS: BMI 44.9
[2024-04-30] VITALS (10 sets, daily range): BP systolic 120–139; BP diastolic 51–72; PULSE 40–50; RESP 16–19; TEMP 36.6; O2SAT 93–99
--- NOTE | ~2024-04-30 | US_ITS ---
EXAMINATION: US thoracentesis DATE: 04/30/2024 11:30 INDICATION: pleural effusion TECHNIQUE: The procedure and its risks and benefits were discussed with the patient. Potential risks discussed included bleeding, infection, and pneumothorax. The patient understood the risks and agreed to proceed. The skin was prepped and draped in sterile fashion. 1% lidocaine was used for local anes thesia. Under ultrasound guidance, a 5 Fr catheter with trochar was advanced into the left pleural ef fusion. Fluid was aspirated. The catheter was removed, and a dressing was applied. There were no imme diate complications. FINDINGS: Ultrasound images demonstrates very small bilateral pleural effusions. Subsequent images demonstrate the catheter within the left pleural effusion. IMPRESSION: 1. Successful ultrasound-guided thoracentesis yielding 40 mL of likely reddish colored fluid. Reviewed, dictated and finalized at location A.
--- NOTE | ~2024-04-30 | XR_ITS ---
EXAMINATION: [id number] DATE: 04/30/2024 10:15 INDICATION: Status post left thoracentesis TECHNIQUE: frontal view of the chest was obtained. COMPARISON: Chest radiograph dated 01/07/2023 FINDINGS: Mild blunting of the bilateral cardiophrenic and costophrenic angles consistent with small bilateral pleural effusions. No pneumothorax. Calcified nodule at the right lung base consistent with old granu lomatous disease. Cardiomegaly. IMPRESSION: 1. Small bilateral pleural effusions. 2. Cardiomegaly. Reviewed, dictated and finalized at location A.
[2024-04-30 08:09] LABS: Mean Platelet Volume 9.1 fl (7.4-10.4); Platelet Count Result 287 k/mm3 (150-375)
[2024-04-30 08:30] LABS: INR 1.2; Prothrombin Time 15.7 Seconds (11.1-14.7)
[2024-04-30 11:32] LABS: Appearance Pleural Fluid Hazy (Clear); Color Pleural Fluid Red (Colorless); Nucleated Cell Pleural Fluid 52 /uL (0-1000); Pleural fluid source Pleural fluid; RBC Pleural Fluid 28000 /uL (0-10000)
[2024-04-30 11:33] LABS: Lymphocytes Pleural Fluid 90 %; Mesothelial Cells Pleural Flui 3 %; Monocytes Pleural Fluid 6 %; Neutrophils Pleural Fluid 1 % (0-25)
[2024-05-04 15:58] LABS: Total Protein Pleural Fluid <3.0 g/dL
== END 2024-04-30 12:35 | disposition home or self-care (01) ==
PROVIDERS: Referring Provider Internal Medicine Critical Care Medicine; Visit Provider Radiology Diagnostic Radiology
DX: J90 Pleural effusion, not elsewhere classified (principal); I51.7 Cardiomegaly
CPT/HCPCS: 32555; 36415; 83615; 83986; 84157; 85049; 85610; 87070; 87075; 87205; 88108; 88305; 89051

== ENCOUNTER 2024-07-16 16:31 | Emergency (ER) | payer MEDICARE, SELFPAY ==
--- NOTE | ~2024-07-16 | XR_ITS ---
HISTORY: fall 2 DAYS AGO. PAIN LEFT KNEE COMPARISON: None TECHNIQUE: 4 views of the right knee were performed FINDINGS: No acute or subacute fracture, erosion, lytic or sclerotic lesion. Medial and lateral tibiofemoral joint space narrowing is identified. Significant osteophyte formation is present. Ossification of the insertion of the quadriceps tendon is noted. No suprapatellar joint effusion is identified. The infrapatellar joint space is clear. IMPRESSION: Severe degenerative disease, without acute fracture identified. Reviewed, dictated and finalized at location A. 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
--- NOTE | ~2024-07-16 | XR_ITS ---
HISTORY: fall 2 DAYS AGO PAIN TO RT ANKLE GENERALIZED COMPARISON: None TECHNIQUE: 3 views of the right ankle were performed FINDINGS: No acute fracture or dislocation. Medial and lateral soft tissue swelling. The ankle mortise is preserved. Diminished bone mineralization is present. Ossification of the insertion of the Achilles tendon is present. Vascular calcifications are noted. Moderate calcaneal spur is present. IMPRESSION: Significant degenerative disease with soft tissue swelling, without acute fracture. Reviewed, dictated and finalized at location A. 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
--- NOTE | 2024-07-16 16:32 | ED.FALL ---
HPI - Fall General Chief Complaint: Extremity Injury, Lower Stated Complaint: FALL Time Seen by Provider: 07/16/24 16:32 Source: patient Mode of arrival: ambulatory Limitations: no limitations History of Present Illness HPI Narrative: Patient is a 74-year-old male who presents with right ankle and right knee pain after falling on ice on Tuesday. Patient is to have pacemaker placed on Tuesday and PCP told him to come get checked out. Patient states he is unsure how he fell or how he landed. Denies hitting head. Currently walks with walker due to history of stroke. Patient has been off Lasix due to upcoming surgery and is currently having significant edema to lower extremities. Related Data Home Medications ?Medication ?Instructions ?Recorded ?Confirmed ?Last Taken ?Type lisinopril 10 mg tablet 10 mg PO DAILY 04/21/23 04/30/24 Unknown History memantine 10 mg tablet 10 mg PO BID 07/13/23 04/30/24 Unknown History sertraline 100 mg tablet 100 mg DIRECTED 09/27/23 04/30/24 Unknown History furosemide 40 mg tablet 40 mg PO TID 04/20/24 04/30/24 Unknown History Allergies Allergy/AdvReac Type Severity Reaction Status Date / Time Sulfa (Sulfonamide Allergy Severe Swelling Verified 04/30/24 08:08 Antibiotics) Review of Systems Review of Systems: All systems reviewed & are unremarkable except as noted in HPI and below Constitutional: Constitutional: Denies body ache(s), Denies chills, Denies fatigue, Denies fever(s), Denies headache(s), Denies malaise and Denies weakness Eyes: Eyes: Denies blurry vision, Denies irritation and Denies loss of vision ENT: Denies otalgia, Denies headache(s), Denies nasal discharge, Denies sinus pain and Denies sore throat Cardiovascular: Cardiovascular: Denies chest pain, Denies irregular heart rhythm and Denies dyspnea Respiratory: Respiratory: Denies dyspnea Gastrointestinal: Gastrointestinal: Denies abdominal pain, Denies melena, Denies hematochezia, Denies diarrhea, Denies nausea and Denies vomiting Musculoskeletal: Musculoskeletal: Denies back pain, Denies myalgias and Reports arthralgias Integumentary/Breasts: Skin/Breast: Denies pruritus and Denies rash Neurologic: Denies headache(s), Denies loss of vision and Denies weakness Psychiatric: Psychiatric: Reports no additional psychiatric complaints Endocrine: Endocrine: Denies fatigue [facility] Past Medical History Medical History Arthritis of both hips 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 Pt quit 1989. Pulmonary embolism TIA (transient ischemic attack) COPD (chronic obstructive pulmonary disease) Essential (primary) hypertension Pulmonary hypertension Hyperlipidemia Surgical History Surgical History History of nasal surgery Status post laser cataract surgery of left eye Status post lumbar spinal fusion Has had three back surgeries, the last one in 2019 Family History Family History Father , Age 48 Acute myocardial infarction Heart disease Sibling , Age 62 Acute myocardial infarction Heart disease Diabetes mellitus Mother , Age 92 Old age Breast cancer Thyroid disorder Other Asthma Social History Social History Social History: Patient lives with his of 53 years. They have 3 adult children who are healthy. 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 He smoked couple of cigars a day for between 10 in 20 years but quit smoking over 40 years ago. Does not drink alcohol. He ambulates with canes and or walker. Code status: Full code Surrogate decision maker: Caffeine-diet soda Years smoked: 10 Smoking status: Former smoker Tobacco type: cigars Second hand tobacco smoke exposure: Yes Alcohol intake: never Substance use: never Substance use type: does not use Lack of Transportation: No Lack of Food: Never True Current Housing: I Have Housing Concerned About Future Housing: No Difficulty Paying Gas/Electric Bills: No Difficulty Paying for Meds: No Currently Unemployed: No Education: High School Diploma/GED Difficulty w/ Childcare or Family Care: No Living arrangements: with family Occupation/Education: retired 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 There is no relevant family history pertinent to the presenting complaint. Exam Const: General: cooperative, healthy appearing, comfortable, no acute distress and well nourished Nutritional Appearance: well nourished Orientation/consciousness: patient oriented x3 Limitations: no limitations HENMT: Head: normal to inspection, normocephalic and atraumatic Ears: hearing grossly normal bilaterally and external ears normal Face/Nose/Sinus: Normal external nose present, normal facial exam and face symmetric Face and sinus: normal facial exam and face symmetric Mouth: Yes lip normal Eyes: General: appearance normal, both eyes and all related structures Alignment and Position: alignment normal and position normal Periorbital: periorbital findings normal Eyelids: eyelids normal Pupils: Equal, round and reactive pupils present EOM: EOMs intact bilaterally Neck: Neck: normal visual inspection, full ROM and supple Chest: Chest palpation & inspection: normal inspection of the chest Resp: Effort & Inspection: normal respiratory effort and able to speak in complete sentences Auscultation: clear to auscultation bilaterally Cardio: Rate: regular rate Rhythm: regular rhythm Heart sounds: S1 normal heart sound present and S2 normal heart sound present GI: Inspection: normal to inspection Skin: General skin exam: normal color and no rashes or lesions noted Neuro: General: patient oriented x3 and moves all extremities Cranial nerves: Yes Equal, round and reactive pupils present Speech: normal speech Gait exam (Neuro): Normal gait present Extrem: General: normal to inspection, full ROM and no edema Right lower extremity: knee Details: tenderness Location: of the infrapatellar area, normal ROM and abrasion knee anterior ; no swelling, lower leg Details: pitting edema Details: 4+ and ankle Details: edema Details: pitting and 4+ and normal ROM; no tenderness, no unusual warmth and no ecchymosis Knee images:  1. 1.5cm circular abrasion with no active bleeding Psych: Appearance: grossly normal and well kempt Mental Status: mental status grossly normal Speech and movement: Normal speech and movement present Affect: normal affect Attitude: cooperative Thought process: Normal thought process present Course Course Emergency Course: Patient is aware of diagnosis, understands and agrees to treatment plan. Anticipatory guidance given. Patient agrees to follow-up as directed and is aware of reasons to seek care at the emergency department. Portions of this record may have been created with voice recognition software Level of Care: Express Care Visit Vital Signs Vital signs: Vital Signs Temperature 37.0 C 07/16/24 16:38 Pulse Rate 59 L 07/16/24 16:38 Respiratory Rate 16 07/16/24 16:38 Blood Pressure 112/72 07/16/24 16:38 Pulse Oximetry 95 07/16/24 16:38 Oxygen Delivery Room Air 07/16/24 16:38 Temperature 37.0 C 07/16/24 16:38 Pulse Rate 59 L 07/16/24 16:38 Respiratory Rate 16 07/16/24 16:38 Blood Pressure 112/72 07/16/24 16:38 Pulse Oximetry 95 07/16/24 16:38 Oxygen Delivery Room Air 07/16/24 16:38 Reviewed MDM - Fall MDM Narrative Medical decision making narrative: Pt well hydrated appearing, in no respiratory distress, hemodynamically stable. Recommend supportive care. The patient is stable at time of discharge the clinical impression was discussed and the patient was given the opportunity to ask questions, which were addressed as completely as possible given the information available at present. Anticipatory guidance and return to care precautions were discussed and the importance of primary care follow-up was stressed and encouraged. The patient voiced understanding of the plan, indications to return, and the need for follow-up. Exam findings show no acute concerns or changes Patient is appropriate for outpatient treatment and follow-up. Differential Diagnosis Differential diagnosis: Likely other (Knee sprain, knee fracture, ankle sprain, ankle fracture) Medical Records Attestation: I reviewed the patient's medical records. Imaging Data Radiologist's impression: HISTORY: fall 2 DAYS AGO. PAIN LEFT KNEE COMPARISON: None TECHNIQUE: 4 views of the right knee were performed FINDINGS: No acute or subacute fracture, erosion, lytic or sclerotic lesion. Medial and lateral tibiofemoral joint space narrowing is identified. Significant osteophyte formation is present. Ossification of the insertion of the quadriceps tendon is noted. No suprapatellar joint effusion is identified. The infrapatellar joint space is clear. IMPRESSION: Severe degenerative disease, without acute fracture identified. HISTORY: fall 2 DAYS AGO PAIN TO RT ANKLE GENERALIZED COMPARISON: None TECHNIQUE: 3 views of the right ankle were performed FINDINGS: No acute fracture or dislocation. Medial and lateral soft tissue swelling. The ankle mortise is preserved. Diminished bone mineralization is present. Ossification of the insertion of the Achilles tendon is present. Vascular calcifications are noted. Moderate calcaneal spur is present. IMPRESSION: Significant degenerative disease with soft tissue swelling, without acute fracture. Discharge Plan Discharge Clinical Impression: Pain in right leg Fall Qualifiers: Encounter type: initial encounter Qualified Code(s): W19.XXXA - Unspecified fall, initial encounter Patient Disposition: Home, Self-Care Condition: Stable Instructions: Ankle Sprain (ED), Knee Sprain (ED) Additional Instructions: Xray showed no fracture. Minimize activities that aggravate the condition The RICE protocol. Follow the RICE protocol as soon as possible after your injury: Rest your ankle by not walking on it. Ice should be immediately applied to keep the swelling down. It can be used for 20 to 30 minutes, three or four times daily. Do not apply ice directly to your skin. Compression dressings, bandages or lee-wraps will immobilize and support your injured ankle. Elevate your ankle above the level of your heart as often as possible during the first 48 hours. Medication: Nonsteroidal anti-inflammatory drugs (NSAIDs) such as ibuprofen and naproxen can help control pain and swelling. Because they improve function by both reducing swelling and controlling pain, they are a better option for mild sprains than narcotic pain medicines. Please schedule a follow-up visit with your personal physician for further evaluation and treatment within 1week OR If your symptoms persist, change or worsen significantly before you can contact your personal physician then please, without delay, go to the emergency department for further evaluation. Patient Language: Mohawk Prescriptions: No Action sertraline 100 mg tablet 100 mg DIRECTED albuterol sulfate [Ventolin HFA] 90 mcg/actuation HFA aerosol inhaler 2 inh INHALATION Q4-6H PRN (Reason: shortness of breath or wheezing) Qty: 8.5 2RF memantine 10 mg tablet 10 mg PO BID mometasone 0.1 % cream 1 applic topical DAILY Qty: 15 0RF Rx Instructions: To elbow lisinopril 10 mg tablet 10 mg PO DAILY mupirocin 2 % ointment 1 applic topical BID Qty: 15 1RF furosemide 40 mg tablet 40 mg PO TID fluticasone propionate [Flonase Allergy Relief] 50 mcg/actuation spray,suspension 2 spray intranasal DAILY Qty: 48 0RF Rx Instructions: administer into each nostril Marlyn Aerosphere 160-9-4.8 mcg/actuation HFA aerosol inhaler 2 inh inhalation QAM AND QPM Qty: 10.7 11RF felodipine 10 mg tablet extended release 24 hr See Rx Instructions .ROUTE .COMPLEX Qty: 90 3RF Dose Instruction: TAKE 1 TABLET BY MOUTH EVERY DAY Rx Instructions: TAKE 1 TABLET BY MOUTH EVERY DAY potassium chloride 10 mEq tablet extended release See Rx Instructions .ROUTE .COMPLEX Qty: 180 3RF Dose Instruction: TAKE 1 TABLET BY MOUTH TWICE A DAY Rx Instructions: TAKE 1 TABLET BY MOUTH TWICE A DAY tamsulosin 0.4 mg capsule See Rx Instructions .ROUTE .COMPLEX Qty: 90 3RF Dose Instruction: TAKE 1 CAPSULE BY MOUTH EVERY DAY Rx Instructions: TAKE 1 CAPSULE BY MOUTH EVERY DAY omeprazole 20 mg capsule,delayed release(DR/EC) 20 mg PO DAILY Qty: 90 3RF atorvastatin 80 mg tablet See Rx Instructions .ROUTE .COMPLEX Qty: 90 3RF Dose Instruction: TAKE 1 TABLET BY MOUTH EVERY DAY Rx Instructions: TAKE 1 TABLET BY MOUTH EVERY DAY tramadol 50 mg tablet 50 mg PO BID PRN (Reason: pain) Qty: 60 0RF Rx Instructions: must last 30 days Eliquis 5 mg tablet See Rx Instructions .ROUTE .COMPLEX Qty: 60 6RF Dose Instruction: TAKE 1 TABLET BY MOUTH EVERY 12 HOURS Patient Comments: Hold after 04/27/24 dose for preop Rx Instructions: TAKE 1 TABLET BY MOUTH EVERY 12 HOURS Follow-up/Referrals: Jh Griffin DO [Primary Care Provider] - 3 Days Time of Disposition: 18:04
[2024-07-16 16:38] VITALS: BP 112/72; PULSE 59; RESP 16; TEMP 37; O2SAT 95
== END 2024-07-16 18:18 | disposition home or self-care (01) ==
PROVIDERS: Emergency Provider Nurse Practitioner Family; PCP Internal Medicine
DX: M25.571 Pain in right ankle and joints of right foot (principal); M25.561 Pain in right knee; W00.9XXA Unspecified fall due to ice and snow, initial encounter; M16.0 Bilateral primary osteoarthritis of hip; K21.9 Gastro-esophageal reflux disease without esophagitis; E66.01 Morbid (severe) obesity due to excess calories; Z68.41 Body mass index [BMI] 40.0-44.9, adult; J44.9 Chronic obstructive pulmonary disease, unspecified; I10 Essential (primary) hypertension; I27.20 Pulmonary hypertension, unspecified; E78.5 Hyperlipidemia, unspecified; H33.22 Serous retinal detachment, left eye; H54.62 Unqualified visual loss, left eye, normal vision right eye; Z87.891 Personal history of nicotine dependence; Z86.73 Personal history of transient ischemic attack (TIA), and cerebral infarction without residual deficits; Z86.16 Personal history of COVID-19
CPT/HCPCS: 73564; 73610; 99214; G0463

== ENCOUNTER 2024-10-26 11:06 | Outpatient (CLI) | payer MEDICARE, SELFPAY ==
--- OUTSIDE RECORDS SUMMARY | 2024-10-26 11:27 | XMS_ITS | Clinical Summary ---
Author Organization [facility] Address [address] [place] [id number] Care Team Providers Care Traffic Officer Name Role Phone Jh Griffin Primary Care Provider Allergies Active Allergy Reactions Criticality Noted Date Comments Sulfa (Sulfonamide Antibiotics) Unknown 02/02 Medications felodipine (PLENDIL) 10 mg Extended Release 24 hour tablet Take 5 mg by mouth daily at bedtime. 9 Active omeprazole (PriLOSEC) 20 mg Capsule, Delayed Release(E.C.) 9 Active apixaban (Eliquis) 5 mg tablet Take 5 mg by mouth every 12 hours. 2 Active memantine (NAMENDA) 10 mg Tablet Take 10 mg by mouth 2 times daily. 3 Active atorvastatin (LIPITOR) 80 mg tablet 80 mg. 1 Active sertraline (ZOLOFT) 50 mg tablet Take 50 mg by mouth daily. 2 Active tamsulosin (FLOMAX) 0.4 mg capsule Take 0.4 mg by mouth daily. 2 Active cholecalciferol , vitamin D3, 1,000 unit Take 1,000 Units by mouth daily. Active Breztri Aerosphere 160 mcg-9mcg-4.8mcg /actuation HFA aerosol inhaler Take 2 Puffs by inhalation 2 times daily. 2 Active traMADoL (ULTRAM) 50 mg tablet Take 50 mg by mouth 2 times daily. 2 Active empagliflozin (Jardiance) 10 mg tablet Take 1 Tablet (10 mg) by mouth daily in the morning. 30 Tablet 11 4 Active lisinopriL (PRINIVIL) 20 mg tablet Take 1 Tablet (20 mg) by mouth daily. 90 Tablet 3 4 Active acetaminophen (TYLENOL ARTHRITIS) 650 mg Extended Release tablet Take 650 mg by mouth every 6 hours as needed for Pain. Active furosemide (LASIX) 40 mg tablet Take 2 Tablets (80 mg) by mouth 2 times daily. 5 Active metoprolol succinate (Toprol XL) 25 mg Extended Release 24 hour tablet Take 1 Tablet (25 mg) by mouth daily. 30 Tablet 11 5 Active potassium CHLORIDE (K-TAB) 20 mEq Extended Release tablet Take 1 Tablet (20 mEq) by mouth 2 times daily with meals. 180 Tablet 3 5 Active Active Problems Patient Care Coordination No te Formatting of this note migh t be different from the original. 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 Malissa [place] Problem Noted Date Diagnosed Date S/P placement of cardiac pacemaker 07/18/2024 Overview (07/18/2024): S/p1/ Medtronic dual chamber PPM implant Pulmonary hypertension 05/23/2024 HAZEL on CPAP 05/23/2024 Bradycardia 05/23/2024 Morbid obesity with BMI of 40.0-44.9, adult 04/03 Chronic heart failure with preserved ejection fr action 12/19/2023 Longstanding persistent atrial fibrillation 12/02 H/O: CVA (cerebrovascular accident) 12/19/2023 Mixed hyperlipidemia 12/19/2023 Primary hypertension 12/19/2023 Preoperative cardiovascular examination 12/19/19 Chronic anticoagulation 12/19/2023 Postlaminectomy syndrome, lumbar region 02/21/20 Left foot drop 02/20/2019 Exogenous obesity 02/20/2019 History of pulmonary embolism 02/20/2019 Degeneration of lumbar intervertebral disc 02/20 Acquired spondylolisthesis of lumbosacral region 02/20/2019 Spinal stenosis, lumbar ness on, without neurogenic claudication 02/20/2019 Resolved Problems Problem Noted Date Diagnosed Date Resolved Date Myocardiopathy 05/23/2024 06/25/2024 Encounters Date Type Department Care Team Description 10/22/2024 3:00 PM CDT Procedure visit [facility] - [address] [place] [address] Cardiac pacemaker in situ (Primary Dx); Longstanding persistent atrial fibrillation (CMS/HCC); Bradycardia 10/02/2024 External Device Data STL ABSTRACTION Provider, Abstract 09/24/2024 10:30 AM CDT Office Visit [facility] [address] [place] [address] Anup Leonardo MD Longstanding persistent atrial fibrillation (CMS/HCC) (Primary Dx); Chronic heart failure with preserved ejection fraction (CMS/HCC); Primary hypertension; Mixed hyperlipidemia; HAZEL on CPAP; Chronic anticoagulation; H/O: CVA (cerebrovascular accident); History of pulmonary embolism; Bradycardia; S/P placement of cardiac pacemaker 09/19/2024 External Device Data STL ABSTRACTION Provider, Abstract 09/11/2024 External Device Data STL ABSTRACTION Provider, Abstract 09/11/2024 External Device Data STL ABSTRACTION Provider, Abstract 09/08/2024 External Device Data STL ABSTRACTION Provider, Abstract 09/07/2024 External Device Data STL ABSTRACTION Provider, Abstract 09/04/2024 External Device Data STL ABSTRACTION Provider, Abstract 08/21/2024 External Device Data STL ABSTRACTION Provider, Abstract 08/20/2024 9:00 AM LOAN INTERVIEWER Procedure visit [facility] - [address] [place] [address] Cardiac pacemaker in situ (Primary Dx); Symptomatic bradycardia; Bradycardia; Longstanding persistent atrial fibrillation (CMS/HCC); Severe sinus bradycardia from Last 3 Months Family History Medical History Relation Name Comments Heart Attack Father Cancer Mother Heart Attack Sister 1 Unknown Sister 1 Unknown Sister 2 Relation Name Status Comments Father Mother Sister 1 Sister 2 Alive Social History Tobacco Use Types Packs/Day Years Used Date Smoking Tobacco: Former Cigarettes Q uit: 1994 Tobacco Cessation:Counseling Given: Not Answered Alcohol Use Standard Drinks/Week Comments Never 0 (1 standard drink = 0.6 oz pur e alcohol) Food Insecurity Answer Date Recorded Social/Environmental Concerns No concerns Transportation Needs Answer Date Record ed Social/Environmental Concerns No concerns Housing Stability Answer Date Recorded Social/Environmental Concerns No concerns Utility Needs Answer Date Recorded Social/Environmental Concerns No concerns Sex and Gender Information Value Date Recorded Sex Assigned at Not on file Legal Sex Male 10:16 PM CDT Gender Identity Not on file Sexual Orientation Not on file Occupation Industry Job Start Date Job End Date Not on file Not on file Not on file Not on file Last Filed Vital Signs Vital Sign Reading Time Taken Comments Blood Pressure 142/72 09/24/2024 10:35 AM CDT Pulse 66 09/24/2024 10:35 AM CDT Temperature 36.4 C (97.6 F) 07/18/2024 7:30 AM LOAN INTERVIEWER Respiratory Rate 17 07/25/2024 10:20 AM LOAN INTERVIEWER Oxygen Saturation 98% 09/24/2024 10:35 AM CDT Inhaled Oxygen Concentration - - Weight 137.4 kg (303 lb) 09/24/2024 10:35 AM CDT Height 180.3 cm (5' 11 ) 09/24/2024 10:35 AM CDT Body Mass Index 42.26 09/24/2024 10:35 AM CDT Plan of Treatment Upcoming Encounters Date Type Department Care Team (Late st Contact Info) Description 11/19/2024 10:00 AM CDT Office Visit [facility] [address] [place] [address] Anup Leonardo MD [address] [place] [address] 01/28/2025 9:00 AM CDT Procedure visit [facility] - [address] [place] [address] Health Maintenance Due Date Last Done Comments DTAP/TDAP/TD VACCINES (1 - Tdap) 1969 COLORECTAL SCREENING 1995 Colorectal Cancer Screening 1995 FIT-DNA Q 3 years 1995 FIT/FOBT Q 1 year 1995 Flex Sig/CT Colonography Q 5 years 1995 ZOSTER VACCINE (1 of 2) 2000 RSV VACCINE (60+ or ) (1 - Risk 60-74 years 1-dose series) 2010 Abdominal Aortic Aneurysm (AAA) Screening 2015 PNEUMOCOCCAL VACCINE 50+ YEARS (2 of 2 - PCV) 04/11/2004/11/2019 INFLUENZA VACCINE (#1) 2024 04/10/2019 Medical Devices Implanted Type Area Oil Field Equipment Mechanic Device Identifier Shelf Expiration Date Model / Serial / Lot Lead Pacing Capsure Fix Novus 45cm [id number] - Csc - [id number] Implanted:Qty: 1 on 07/18/2024 by Ernesto Oneal MD at [facility] Lead Right: Heart [employer]- CRM - BULK [employer]Y [id number] 05/17/2026 5076-45 / [id number] / Lead Capsurefix Novus Mri 52cm Endocardial Pacing 5076-52 - [id number] Implanted:Qty: 1 on 07/18/2024 by Ernesto Oneal MD at [facility] Lead Right: Heart [employer]- CRM - BULK [employer]Y [id number] 04/26/2026 5076-52 / [id number] / Pacemaker Jessenia Xt Dr Mri Ipg Dual Chmbr Surescan [id number] - [id number] Implanted:Qty: 1 on 07/18/2024 by Ernesto Oneal MD at [facility] Pacemaker Left: Chest [employer]- CRM - BULK BUY [id number] 11/28/2025 [id number] / [id number] / Procedures Procedure Name Priority Date/Time Associated Diagnosis Comments NH REM INTERROG PM/LDLS PM/IDS <90 D TECH REVIEW Routine 10/21/2024 9:02 PM CDT Cardiac pacemaker in situ Longstanding persistent atrial fibrillation (CMS/HCC) Bradycardia NH REM INTERROG PM/LDLS PM <90 D PHYS/QHP Routine 10/21/2024 9:02 PM CDT Cardiac pacemaker in situ Longstanding persistent atrial fibrillation (CMS/HCC) Bradycardia NH INTERROG EVAL, REMOTE, UP TO 90 DAYS, PACER/DEFIB WITHIN GLOBAL Routine 08/20/2024 12:11 AM LOAN INTERVIEWER Cardiac pacemaker in situ Symptomatic bradycardia Bradycardia Longstanding persistent atrial fibrillation (CMS/HCC) Severe sinus bradycardia NH INTERROG EVAL,REMOTE,UP TO 90 DAYS,PACEMAKER WITHIN GLOBAL Routine 08/20/2024 12:11 AM LOAN INTERVIEWER Cardiac pacemaker in situ Symptomatic bradycardia Bradycardia Longstanding persistent atrial fibrillation (CMS/HCC) Severe sinus bradycardia from Last 3 Months Results * NH REM INTERROG PM/LDLS PM <90 D PHYS/QHP, NH REM INTERROG PM/LDLS PM/IDS <90 D TECH REVIEW (10/21/2024 9:02 PM CDT) Only the most recent of2 resultswithin the time period is included. 10/21/2024 9:02 PM CDT Ernesto Oneal MD CARDIAC SERVICES ORDERABLES Pollo yohana Result - Final Performing Organization Address City/State/[facility] Co de Phone Number INTERFACE SYSTEM Refer to clinic/hospital department from Last 3 Months Insurance MEDICARE PART A AND B [facility] SUPP Advance Directives For more information, please contact: [phone] * Full Code (Latest Code Status on File) Date Activated Date Inactivated Comments 07/18/2024 7:10 AM 07/18/2024 1:39 PM Care Teams Traffic Officer Relationship Specialty Start Date End Date Jh Griffin DO [address] [facility] [address] [facility] [address] [place] [id number] PCP - General Internal Medicine 07/10/24
--- OUTSIDE RECORDS SUMMARY | 2024-10-26 11:27 | XMS_ITS | Patient Health Record ---
Author Organization [facility] [place] [facility] Address [address] [place] [address] Care Team Providers Care Fabricator Special Items Name Role Phone Jh Griffin DO Primary Care Provider UnavailJesus Curtis Unavailable [phone] Migration, Provider Unavailable Unavailable Allergies Allergen (clinical drug ingredient) Drug/Non Drug Allergy documented on EMR Reaction Allergy Type Onset Date Status Sulfur Dioxide SULFUR DIOXIDE (uncoded) Unknown Allergy 05/30/2023 Active SULFUR HEXAFLUORIDE MICROSPHERES (uncoded) Unknown Allergy 05/30/2023 Active Reason For Referral No Information Medications Medication SIG (Take, Route, Frequency, Duration) Notes Start Date End Date Status Memantine HCl 10 MG 1 tablet Orally twice a day for 90 days Active Breztri Aerosphere 160-9-4.8 MCG/ACT Inhalation *Reorder from in2apps for eRx and Interaction Alerts* 08/22/2023 Active Sertraline HCl 100 MG 1 tablet Oral Once a day for 90 days Active Atorvastatin Calcium 80 MG Oral 08/22/2023 Active Potassium Chloride ER 10 MEQ Oral 08/22/2023 Active Sertraline HCl 100 MG TAKE 1 TABLET BY MOUTH EVERY DAY FOR 90 DAYS for 90 Active Memantine HCl 10 MG 1 tablet Orally twice a day for 90 days Active Tamsulosin HCl 0.4 MG Oral 08/22/2023 Active Jardiance 10 MG Oral for 30 Days Active Eliquis 5 MG Oral 08/22/2023 Active Omeprazole 20 MG Oral 08/22/2023 Ac tive Lisinopril 10 MG Oral 08/22/2023 Ac tive Furosemide 40 MG Oral 08/22/2023 Ac tive Felodipine ER 10 mg Oral 08/22/2023 Active Social History Sex Assigned At : Social History Observation Description Sex Assigned At Male Problems Problem Type SNOMED Code ICD Code Onset Dates Problem Status W/U Status Risk Notes Problem Moderate recurrent major depression (67136423) Major depressive disorder, recurrent, moderate (F33.1) 08/22/2023 Active confirmed Problem Mild cognitive disorder (604607225) Mild cognitive impairment, so stated (G31.84) 08/22/2023 Active confirmed Vital Signs Heart Rate 84 /min 08/24/2024 Height-cm 180.34 cm 08/24/2024 Blood pressure diastolic 80 mm Hg 08/24/2024 Weight-kg 138.35 kg 08/24/2024 Height 71.00 in 08/24/2024 Blood pressure systolic 131 mm Hg 08/24/2024 Weight 305 lbs 08/24/2024 BMI 42.53 kg/m2 08/24/2024 Procedures Procedure Date Ordered Date Performed Result Body Sit e MCI Testing 08/24/2024 10/18/2024 N/A SLUMS Testing 08/24/2024 10/18/2024 N/A Encounters Encounter Location Date Provider Diagnosis [facility] [employer] [place] [address] [address] 02/20/2024 Jesus Joseph Mild cognitive impairment, so stated G31.84 and Major depressive disorder, recurrent, moderate F33.1 [facility] [employer] [place] [address] [address] 08/24/2024 Jesus Joseph Mild cognitive impairment, so stated G31.84 and Major depressive disorder, recurrent, moderate F33.1 [facility] [employer] [place] [address] [address] 10/18/2024 Jesus Joseph Mild cognitive impairment, so stated G31.84 [facility] [employer] [address] [address] 11/19/2023 Provider Migration [facility] [employer] [place] [address] [address] 11/20/2023 Provider Migration [facility] [employer] [place] [address] [address] 04/20/2024 Jesus Joseph Mild cognitive impairment, so stated G31.84 Assessments Encounter Date Diagnosis (ICD Code) Assessment Notes Treatment Notes Treatment Clinical Notes Section Notes 04/20/2024 Mild cognitive impairment, so stated (ICD-10 - G31.84) 08/24/2024 Mild cognitive impairment, so stated (ICD-10 - G31.84) 10/18/2024 Mild cognitive impairment, so stated (ICD-10 - G31.84) Thank you for sharing the cognitive results and SLUMS/IQCODE scores for Katlyn Kumra (: 1950). Here is a structured and clinically-orient ed interpretation of the findings: Cognitive Status Overview Comparative Group: Males, age 65-74 Date of Assessment: October 18, 2024 Tasks Completed: 6 cognitive domains 1. SLUMS ([facility] Mental Status Exam) Total Score: 22 For a person with high school education, a score of: 27-30 = Normal 21-26 = Mild Neurocognitive Disorder 1-20 = Dementia Interpretation: A score of 22 indicates mild neurocognitive impairment, which is consistent with MCI (Mild Cognitive Impairment). This warrants closer observation and further contextual understanding of daily functioning. 2. IQCODE (Informant Questionnaire on Cognitive Decline in the Elderly) Total Score: 3.0 Interpretation Thresholds: < 3.0 = No cognitive decline 3.0-3.3 = Borderline to mild concern > 3.3 = Likely significant cognitive decline Interpretation: A score of 3.0 sits at the lower bound of concern, indicating that no significant functional decline has been noted by an informant. However, when combined with SLUMS, this score suggests potential early-stage cognitive concerns without full loss of function. 3. Cognitive Marker Breakdown (Percentile-based ) Domain Score Interpretation Feature Match (Attention) 88 Low-average (within typical age range) Paired Associates (Episodic Memory) 88 Low-average, possible mild encoding difficulty Double Trouble (Inhibition) 88 Low-average, but no major response inhibition issues Number Ladder (Visuospatial WM) 81 Below average, suggestive of working memory decline Rotations (Mental Rotation) 94 Average, preserved spatial reasoning Digit Span (Verbal STM) 86 Borderline below average, may reflect short-term memory issues 4. Interpretation & Clinical Summary Cognitive Concerns Identified: Visuospatial Working Memory (81) and Verbal Short-Term Memory (86) are below average, aligning with the SLUMS score of 22. Mild inefficiencies across episodic memory, inhibition, and attention are present but remain within low-average bounds. No signs of functional impairment are noted on the IQCODE, meaning real-world independence is likely still intact. However, subjective complaints or forgetfulness may be increasing. 5. Recommendations Monitor for Progression: Re-evaluate in 6-12 months using SLUMS and the same cognitive battery to assess for decline or stability. Cognitive Support Strategies: Encourage mental stimulation (e.g., puzzles, memory games, reading). Use external memory aids (reminder apps, calendars). Engage in moderate physical exercise, which supports neuroplasticity. Diet & Lifestyle: Consider Mediterranean-sty le diet, which has evidence for cognitive support. Monitor for sleep quality, mood symptoms, and medication side effects. Cognitive Exercises Recommended: n-back training for working memory. Paired-associate learning tasks or card-matching apps. Verbal span training using free apps like [employer] or [employer]. 02/20/2024 Major depressive disorder, recurrent, moderate (ICD-10 - F33.1) Sinus Obstruction and Difficulty Breathing - Assessment: The patient reports ongoing difficulty breathing due to sinus obstruction, with the right side of the nose completely closed and the left side partially closed, as discovered during a scope procedure in December. The patient has a scheduled sinus surgery on . - Plan: - Encourage the patient to follow through with the sinus surgery and adhere to post-operative care instructions. - Reassess the patient's breathing and overall well-being after the surgery. Sleep Disturbance - Assessment: The patient reports trouble sleeping, likely related to sinus issues. The patient sleeps for 3-4 hours, then wakes up for a couple of hours before going back to sleep. - Plan: - Monitor the patient's sleep quality following sinus surgery to determine if there is improvement. - If sleep issues persist after surgery, consider further evaluation and potential interventions. Anxiety and Depression DAO, MDDR - Assessment: The patient denies current anxiety or depression symptoms. - Plan: - Continue current medications: Sertraline 100 mg daily for depression and anxiety, Memantine twice daily for memory. - Keep Lorazepam available at home for as-needed use; patient can call for a prescription if needed. Short-term Memory Issues - Assessment: The patient reports occasional short-term memory lapses, possibly related to age, history of stroke, sinus issues, and sleep disturbance. The patient describes forgetting what tool he needs while working in the garage but mentions the information comes back to him after a moment. - Plan: - Monitor the patient's memory function following sinus surgery and potential improvement in sleep quality. - If memory issues persist or worsen, consider adding Donepezil to the patient's medication regimen. - Schedule a follow-up appointment in six months or sooner if memory issues do not improve. Primary Care Physician Change - Assessment: The patient's previous primary care physician, Dr. Webb, had a stroke, and the patient is now seeing Dr. Jh Zavala in the same office. The patient mentions difficulty contacting Dr. Zavala's office due to incorrect phone number routing. - Plan: - Update the patient's medical record to reflect the change in primary care physician. - Ensure any necessary communication or documentation is sent to Dr. Zavala's office rather than Dr. Webb's. - Temporarily keep Dr. Webb's office information for faxing purposes until Dr. Zavala's correct contact information is obtained. 02/20/2024 Mild cognitive impairment, so stated (ICD-10 - G31.84) Sinus Obstruction and Difficulty Breathing - Assessment: The patient reports ongoing difficulty breathing due to sinus obstruction, with the right side of the nose completely closed and the left side partially closed, as discovered during a scope procedure in December. The patient has a scheduled sinus surgery on . - Plan: - Encourage the patient to follow through with the sinus surgery and adhere to post-operative care instructions. - Reassess the patient's breathing and overall well-being after the surgery. Sleep Disturbance - Assessment: The patient reports trouble sleeping, likely related to sinus issues. The patient sleeps for 3-4 hours, then wakes up for a couple of hours before going back to sleep. - Plan: - Monitor the patient's sleep quality following sinus surgery to determine if there is improvement. - If sleep issues persist after surgery, consider further evaluation and potential interventions. Anxiety and Depression DAO, MDDR - Assessment: The patient denies current anxiety or depression symptoms. - Plan: - Continue current medications: Sertraline 100 mg daily for depression and anxiety, Memantine twice daily for memory. - Keep Lorazepam available at home for as-needed use; patient can call for a prescription if needed. Short-term Memory Issues - Assessment: The patient reports occasional short-term memory lapses, possibly related to age, history of stroke, sinus issues, and sleep disturbance. The patient describes forgetting what tool he needs while working in the garage but mentions the information comes back to him after a moment. - Plan: - Monitor the patient's memory function following sinus surgery and potential improvement in sleep quality. - If memory issues persist or worsen, consider adding Donepezil to the patient's medication regimen. - Schedule a follow-up appointment in six months or sooner if memory issues do not improve. Primary Care Physician Change - Assessment: The patient's previous primary care physician, Dr. Webb, had a stroke, and the patient is now seeing Dr. Jh Zavala in the same office. The patient mentions difficulty contacting Dr. Zavala's office due to incorrect phone number routing. - Plan: - Update the patient's medical record to reflect the change in primary care physician. - Ensure any necessary communication or documentation is sent to Dr. Zavala's office rather than Dr. Webb's. - Temporarily keep Dr. Webb's office information for faxing purposes until Dr. Zavala's correct contact information is obtained. 08/24/2024 Major depressive disorder, recurrent, moderate (ICD-10 - F33.1) 08/24/2024 Other Pacemaker Insertion - Plan: - Continue to monitor the patient's progress. - Follow up with a beauty culture teacher as needed. Depression - Plan: - Continue sertraline 100 mg daily for depression management. - Reassess the patient's mood and mental health during the next visit. Cognitive Function - Plan: - Schedule a cognitive assessment in two months, after the patient receives new glasses. Anxiety - Plan: - Discontinue lorazepam and danika it as inactive on the patient's medication list. Follow-up - Plan: - Schedule a follow-up appointment in three months. - Complete a cognitive assessment in two months. Medication Refills - Plan: - Send prescription refills for sertraline 100 mg daily and memantine 10 mg twice a day to [facility] pharmacy. Lifestyle - Plan: - Encourage the patient to maintain a healthy lifestyle. - Encourage engagement in activities that promote mental and physical well-being. Plan Of Treatment Next Appt Details Provider Name:Jesus Ruiz , 11/15/2024 10:00:00 AM, [address], [facility] [address], [place], [address], Insurance Providers Payer Name Payer Address Payer Phone Subscriber Number Group Number Insured Name Patient Relationship to Insured Coverage Start Date Coverage End Date Medicare-I l Medicare [address] [place] [phone] [id number] KATLYN KUMAR Self - patient is the insured [facility] Ppo [address] [place] [address] [id number] KATLYN KUMAR Self - patient is the insured Medical (General) History Medical History History ICD Code Problems: Generalized anxiety disorder Mild neurocognitive disorder Moderately severe recurrent major depres mikaela , Surgical History Surgery Date(Month/Year) Other 12/02/2016 Any surgical history 03/04/2021 pacemaker put in 07/2024
--- OUTSIDE RECORDS SUMMARY | 2024-10-26 11:27 | XMS_ITS | Clinical Summary ---
Author Organization [facility] [address] Address [address] [place] [address] Care Team Providers Care Media Technician Name Role Phone Anton Raines MD Primary Care Provider [phone] Allergies Active Allergy Reactions Criticality Noted Date Comments Sulfa (Sulfonamide Antibiotics) Medications felodipine (PLENDIL) 10 mg 24 hr tablet TK 1 T PO QD 3 06/11/2018 Act meron furosemide (LASIX) 40 mg tablet Take 1 tablet (40 mg total) by mouth 2 (two) times a day 2 06/12/2018 Active omeprazole (PriLOSEC) 20 mg capsule Take 1 capsule (20 mg total) by mouth daily Active atorvastatin (LIPITOR) 80 mg tabletIndicatio ns:hyperlipidem ia Take 1 tablet (80 mg total) by mouth nightly 30 tablet 11 04/11/2019 Active vitamin B complex capsule Take 1 capsule by mouth daily Active cholecalciferol (VITAMIN D-3) 25 mcg (1,000 unit) tablet Take 1 tablet (1,000 Units total) by mouth daily Active calcium carb/D3/magnesi um/zinc (calcium carb-D3-mag [id number]-[id number]) [phone] ei-nzde-eg-mg tablet Take by mouth Active potassium chloride ER (KLOR-CON) 10 mEq CR tablet Take 1 tablet/capsu le (10 mEq total) by mouth 2 (two) times a day Active Breztri Aerosphere 160-9-4.8 mcg/actuation HFA aerosol inhaler INHALE 2 PUFFS IN THE MORNING AND EVENING 10/15/2021 Active Eliquis 5 mg tablet Take 1 tablet (5 mg total) by mouth every 12 (twelve) hours 05/17/2022 Active traMADoL (ULTRAM) 50 mg tablet Take 1 tablet (50 mg total) by mouth 2 (two) times a day 05/18/2022 Active tamsulosin (FLOMAX) 0.4 mg extended release capsule Take by mouth daily 06/15/2022 Active sertraline (ZOLOFT) 50 mg tablet Take 1 tablet (50 mg total) by mouth daily 06/18/2022 Active acetaminophen (TYLENOL) 500 mg tablet Take 1 tablet (500 mg total) by mouth every 6 (six) hours as needed for pain Active ALPRAZolam (XANAX) 0.5 mg tablet 10/15/2022 Active memantine (NAMENDA) 10 mg tablet TAKE 1 TABLET TWICE A DAY BY ORAL ROUTE FOR 90 DAYS. 05/30/2023 Active lisinopriL (PRINIVIL,ZESTR [place]) 10 mg tabletIndicatio ns:HTN (hypertension), benign TAKE 1 TABLET BY MOUTH EVERY DAY 90 tablet 12/15/2023 Active Active Problems Problem Noted Date Diagnosed Date H/O: CVA (cerebrovascular accident) 10/29/2022 Sick sinus syndrome 10/29/2022 Pulmonary HTN 09/17/2021 Chronic heart failure with preserved ejection fr action 09/17/2021 Persistent atrial fibrillation 09/17/2021 HAZEL on CPAP 09/17/2021 Chronic anticoagulation 09/17/2021 Stroke (cerebrum) 04/10/2019 HTN (hypertension), benign 04/10/2019 Mixed hyperlipidemia 04/10/2019 COPD (chronic obstructive pulmonary disease) 02/2019 Spinal stenosis 04/10/2019 Pulmonary embolism 04/10/2019 Morbid obesity with BMI of 40.0-44.9, adult 02/2019 Immunizations Immunization Administration Dates Next Due Influenza, Trivalent, High D ose, Split, Preservative Free, Intramuscular 04/10/2019 Pneumococcal Polysaccharide PPV23 04/11/2019 Medical History Medical History Date Comments Hypertension Chronic pain Atrial fibrillation (HCC) CHF (congestive heart failure) (HCC) COPD (chronic obstructive pulmonary disease) (HC C) Hyperlipidemia Shortness of breath Sleep apnea Family History Medical History Relation Name Comments Heart disease Father Family history of cardiac disorder - (Added by TW Conv) Relation Name Status Comments Father Social History Tobacco Use Types Packs/Day Years Used Date Smoking Tobacco: Never Tobacco Cessation:Counseling Given: Not Answered Alcohol Use Standard Drinks/Week Comments No 0 (1 standard drink = 0.6 oz pur e alcohol) PHQ-2 Answer Date Recorded PHQ-2 Score 0 04/10/2019 Personal Safety Answer Date Recorded Getting School Help Needed Not on file 06/15 Sex and Gender Information Value Date Recorded Sex Assigned at Not on file Legal Sex Male 4:38 AM FRONT OFFICE COORDINATOR Gender Identity Not on file Sexual Orientation Not on file Obstetrics History Last Filed Vital Signs Vital Sign Reading Time Taken Comments Blood Pressure 128/58 07/08/2023 2:12 PM FRONT OFFICE COORDINATOR Pulse 79 07/08/2023 2:12 PM FRONT OFFICE COORDINATOR Temperature 36.6 C (97.9 F) 04/11/2019 7:43 AM CDT Respiratory Rate 18 12/11/2021 9:18 AM CDT Oxygen Saturation 92% 07/08/2023 2:12 PM FRONT OFFICE COORDINATOR Inhaled Oxygen Concentration - - Weight 132.4 kg (291 lb 14.4 oz) 07/08/2023 2:12 PM FRONT OFFICE COORDINATOR Height 180.3 cm (5' 11 ) 07/08/2023 2:12 PM FRONT OFFICE COORDINATOR Body Mass Index 40.71 07/08/2023 2:12 PM FRONT OFFICE COORDINATOR Plan of Treatment Health Maintenance Due Date Last Done Comments Colon Cancer Screening-Colonoscopy 1950 Hepatitis C Screening 1950 DTaP/Tdap/Td Vaccine (1 - Tdap) 1961 Hepatitis B Screening 1968 Zoster Vaccine (1 of 2) 2000 Abdominal Aortic Aneurysm (A AA) Screen 2015 Well Visit 65+ 2015 Depression Screening 04/10/2020 04/10/2019 Pneumococcal vaccine 65+ (2 of 2 - PCV) 04/11/2020 04/11/2019 Fall Risk Assessment 10/27/2022 10/27/2021, 09/25/2018, 08/28/2018 Covid-19 Vaccine (2 - season) 03/04/202402/2021 Influenza Vaccine (#1) 2024 04/10/2019 Goals Goal Patient Goal Type Associated Problems Recent Progress Patient-Stated? Author CCM Chronic Pain Care Plan Chronic Care Management Amie Ness, RN Note: Problem: Chronic Pain Goals: 1. Minimize further functional decline 2. Maximize quality of life 3. Control pain Strategies: - Activity/exercise program recommendation - Conservative stepwise pain medicine strategy with multi-disciplinary approach - Recommend healthy lifestyle strategies and compensatory methods as needed Reduce the likelihood of falling Lifestyle No Amie Clemens, RN Note: Below are four things you can do to prevent falls: 1. Begin an exercise program to improve your leg strength & balance 2. Ask your doctor or pharmacist to review your medicines 3. Get annual eye check-ups & update your eyeglasses 4. Make your home safer by: Removing clutter & tripping hazards Putting railings on all stairs & adding grab bars in the bathroom Having good lighting, especially on stairs Contact your local community or [facility] for information on exercise, fall prevention programs, or options for improving home safety. Insurance MEDICARE [facility] MEDICARE [facility] Advance Directives For more information, please contact: [phone] * Full Code (Latest Code Status on File) Date Activated Date Inactivated Comments 04/10/2019 10:36 PM 04/11/2019 11:38 PM Care Teams Media Technician Relationship Specialty Start Date End Date Anton Raines MD [address] [facility] [address] [place] [id number] PCP - General Internal Medicine 04/12/19
--- OUTSIDE RECORDS SUMMARY | 2024-10-26 11:27 | XMS_ITS | Referral Summary ---
Author Organization [facility] [address] Address [address] [place] [address] Care Team Providers Care Sign Wirer Name Role Phone Anton Raines MD Primary Care Provider [phone]- [phone] Allergies Active Allergy Reactions Criticality Noted Date [...] daily Active calcium carb/D3/magnesi um/zinc (calcium carb-D3-mag yjl94-[id number]) [phone] gi-klyx-hx-mg tablet Take by mouth Active potassium chloride [...] Free, Intramuscular 04/10/2019 Pneumococcal Polysaccharide PPV23 04/11/2019 Social History Tobacco Use Types Packs/Day Years [...] on file Legal Sex Male 4:38 AM POWER PLANT SUPERINTENDENT Gender Identity Not on file Sexual Orientation Not on file Last Filed Vital Signs Vital Sign Reading Time Taken Comments Blood Pressure 128/58 07/08/2023 2:12 PM POWER PLANT SUPERINTENDENT Pulse 79 07/08/2023 2:12 PM POWER PLANT SUPERINTENDENT Temperature 36.6 C (97.9 F) 04/11/2019 7:43 AM CDT Respiratory Rate 18 12/11/2021 9:18 AM CDT Oxygen Saturation 92% 07/08/2023 2:12 PM POWER PLANT SUPERINTENDENT Inhaled Oxygen Concentration - - Weight 132.4 kg (291 lb 14.4 oz) 07/08/2023 2:12 PM POWER PLANT SUPERINTENDENT Height 180.3 cm (5' 11 ) 07/08/2023 2:12 PM POWER PLANT SUPERINTENDENT Body Mass Index 40.71 07/08/2023 2:12 PM POWER PLANT SUPERINTENDENT Plan of Treatment Not on file Goals Goal Patient Goal Type Associated Problems Recent Progress Patient-Stated? Author CCM Chronic Pain Care Plan Chronic Care Management No Amie Clemens, RN Note: Problem: Chronic Pain Goals: 1. [...] on stairs Contact your local community or senior center for information on exercise, fall prevention programs, or options for improving home safety. Insurance MEDICARE [facility] MEDICARE [facility] MEDICARE [facility] Advance Directives For more information, please contact: [phone] * Full Code (Latest Code Status on File) Date Activated Date Inactivated Comments 04/10/2019 10:36 PM 04/11/2019 11:38 PM Care Teams Sign Wirer Relationship Specialty Start Date End Date Anton Raines MD [address] [facility] [address] [place] [address] PCP - General Internal Medicine 04/12/19
--- OUTSIDE RECORDS SUMMARY | 2024-10-26 11:27 | XMS_ITS | Clinical Summary ---
Author Organization [facility] Address [address] [place] [address] Care Team Providers Care Environmental Services Director Name Role Phone None, Provider Primary Care Provider Unavaila ble Social History Tobacco Use Types Packs/Day Years Used Date Smoking Tobacco: Never Assessed Sex and Gender Information Value Date Recorded Sex Assigned at Not on file Legal Sex Male 8:52 AM CDT Gender Identity Not on file Sexual Orientation Not on file Plan of Treatment Health Maintenance Due Date Last Done Comments Colorectal Cancer Screening Colonoscopy (10 Years) 1950 Hepatitis C 1968 DTaP, Tdap and Td Vaccines ( 1 - Tdap) 1969 Pneumococcal Vaccine: 50+ Ye ars (1 of 1 - PCV) 2000 Zoster Vaccines (1 of 2) 2000 COVID-19 Vaccine (1 - 2023-2 5 season) 2024 RSV Immunization or 60+ Years (1 - 1-dose 75+ series) 2025 Meningococcal B Vaccine Aged Out No l onger eligible based on patient's age to complete this topic Meningococcal Vaccine Aged Out No juarez lauri eligible based on patient's age to complete this topic RSV Immunizations Under 20 Months Aged Out No longer eligible based on patient's age to complete this topic Care Teams Environmental Services Director Relationship Specialty Start Date End Date None, Provider, PCP - General UNKNOWN PHYSICIAN SPECIALTY 07/21/22
--- OUTSIDE RECORDS SUMMARY | 2024-10-26 11:28 | XMS_ITS ---
Author Organization [facility] [email or web address] Address [address] [facility] [address] [place] [address] Care Team Providers Care Mold Capper Helper Name Role Phone Jh Griffin DO Primary Care Provider Jesus Lopez Unavailable [phone] Social History Sex Assigned At : Social History Observation Description Sex Assigned At Male Encounters Encounter Location Date Provider Diagnosis [facility] [place] [id number] [facility] [address] [place] [address] 08/22/2024 Jesus Maldonado Plan Of Treatment Next Appt Details Provider Name:Jesus Maldonado , 11/15/2024 10:00:00 AM, [address], [facility] [address], [place], [address], Progress Notes * KATLYN KUMAR RDOB:[birth year] (74 yo M)Acc No.[id number]:08/22/2024 Patient: Sabina KATLYN GONZALEZ Provider: Vincent MALDONADO MD :1950 A ge:74 Y S ex:Male Date:08/22/2024 Address:[address], [facility] Pcp:Jh Griffin DO Subjective: * Chief Complaints: * * Active Problem List F33.1 Major depressive dis order, recurrent, moderate Onset Date:08/22/2023Modified On:02/20/2024W/U Status:confirmed G31.84 Mild cognitive impai rment, so stated Onset Date:08/22/2023Modified On:08/24/2024W/U Status:confirmed * Medical History: Objective: * Vitals: Assessment: Plan: * Treatment: * Billing Information: * Visit Code: * Procedure Codes: * Electronic signature of Toño Maldonado MD on 10/26/2024 at 11:27 AM CDT Sign off status: Pending * Provider: Vincent MALDONADO MD Date: 0 08/22/2024 Generated for Marla ziegler/Moiz/Vivian on: 0 10/26/2024 11:27 AM CDT
[2024-10-26 12:19] LABS: Hemoglobin A1C 6.3 % (<5.7)
[2024-10-26 12:22] LABS: Alanine Aminotransferase 20 U/L (6-50); Albumin Level 3.7 g/dL (3.5-5.1); Alkaline Phosphatase 122 U/L (38-126); Anion Gap 8 mmol/L (4-12); Aspartate Amino Transferase 23 U/L (17-59); Bilirubin,Total 1.5 mg/dL (0.2-1.3); Blood Urea Nitrogen 19 mg/dL (9-20); Calcium 8.6 mg/dL (8.4-10.2); Carbon Dioxide 29 mmol/L (22-30); Chloride 101 mmol/L (98-107); Cholesterol 64 mg/dL (0-200); Estimated Glomerular Filt Rate > 60; Glucose 99 mg/dL (65-110); HDL Direct 35 mg/dL; Potassium 3.9 mmol/L (3.4-5.0); Sodium 138 mmol/L (137-145); Triglycerides 54 mg/dL (<150)
[2024-10-26 12:34] LABS: LDL Cholesterol Direct < 30 mg/dL
== END 2024-10-26 11:07 | disposition home or self-care (01) ==
PROVIDERS: PCP Internal Medicine; Visit Provider Nurse Practitioner
DX: R73.9 Hyperglycemia, unspecified (principal); E78.5 Hyperlipidemia, unspecified
CPT/HCPCS: 36415; 80053; 80061; 83036

== ENCOUNTER 2024-10-29 11:13 | Outpatient (CLI) | payer MEDICARE, SELFPAY ==
--- NOTE | ~2024-10-29 | XR_ITS ---
CHEST RADIOGRAPH, PA AND LATERAL CLINICAL HISTORY: R06.09 - Other forms of dyspnea, HTN . COMPARISON: 04/30/2024 TECHNIQUE: PA and lateral views of the chest. FINDINGS The left mid lung is partially obscured due to pacemaker generator. Wires project over the right atrium and right ventricle. The remainder of the cardiomediastinal silhouette is enlarged, but otherwise unremarkable. Bilateral pleural effusions, left greater than right. Increased interstitial markings are identified bilaterally, findings suggesting mild pulmonary vascul ar congestion. The remainder of the lungs are clear. IMPRESSION: Mild pulmonary vascular congestion with bilateral pleural effusions, left greater than right. Reviewed, dictated and finalized at location A. IMPRESSION: Mild pulmonary vascular congestion with bilateral pleural effusions, left great er than right.
[2024-10-29 11:51] LABS: Basophils Percent Auto 0.4 % (0.2-1.2); Eosinophils Absolute Auto 0.1 K/mm3 (0-0.3); Eosinophils Percent Auto 1.8 % (0-4.4); Hematocrit 30.4 % (42.0-52.0); Hemoglobin 8.2 g/dL (14.0-18.0); Immature Granulocyte Absolute 0.02 K/mm3 (0.00-0.031); Immature Granulocyte Percent A 0.3 % (0-0.5); Immature Platelet Fraction Pct 2.7 % (0.9-11.2); Lymphocytes Absolute Auto 0.65 K/mm3 (0.9-3.2); Lymphocytes Percent Auto 8.3 % (18.3-44.2); Mean Corpuscular Hemoglobin 16.5 pg (26-34); Monocytes Absolute Auto 0.6 K/mm3 (0.1-0.6); Monocytes Percent Auto 7.8 % (2.6-8.5); Neutrophils Absolute Auto 6.4 K/mm3 (1.3-6.7); Neutrophils Percent Auto 81.4 % (45.5-73.1); Platelet Count Result 233 k/mm3 (150-375); Red Blood Count 4.98 M/mm3 (4.6-6.20); White Blood Count 7.8 K/mm3 (4.5-10.0)
[2024-10-29 12:11] LABS: Anisocytosis 1+; Band Neutrophils Percent 0 % (0-6); Hypochromasia 1+; Platelet Estimate Adequate (Adequate)
[2024-10-29 12:12] LABS: Schistocytes None Seen
[2024-10-29 12:13] LABS: Iron 24 ug/dL (49-181)
[2024-10-29 12:24] LABS: Percent Iron Saturation 6 % (20-50)
--- OUTSIDE RECORDS SUMMARY | 2024-10-29 13:14 | XMS_ITS | Clinical Summary ---
Author Organization [facility] [address] Address [address] [place] [address] Care Team Providers Care Certified Pediatric Nurse Practitioner Name Role Phone Anton Raines MD Primary Care Provider [phone] Allergies Active Allergy Reactions Criticality Noted Date [...] daily Active calcium carb/D3/magnesi um/zinc (calcium carb-D3-mag [id number]) [phone] kf-glsx-so-mg tablet Take by mouth Active potassium chloride [...] on file Legal Sex Male 4:38 AM MILITARY EDUCATION COORDINATOR Gender Identity Not on file Sexual Orientation Not on file Obstetrics History Last Filed Vital Signs Vital Sign Reading Time Taken Comments Blood Pressure 128/58 07/08/2023 2:12 PM MILITARY EDUCATION COORDINATOR Pulse 79 07/08/2023 2:12 PM MILITARY EDUCATION COORDINATOR Temperature 36.6 C (97.9 F) 04/11/2019 7:43 AM CDT Respiratory Rate 18 12/11/2021 9:18 AM CDT Oxygen Saturation 92% 07/08/2023 2:12 PM MILITARY EDUCATION COORDINATOR Inhaled Oxygen Concentration - - Weight 132.4 kg (291 lb 14.4 oz) 07/08/2023 2:12 PM MILITARY EDUCATION COORDINATOR Height 180.3 cm (5' 11 ) 07/08/2023 2:12 PM MILITARY EDUCATION COORDINATOR Body Mass Index 40.71 07/08/2023 2:12 PM MILITARY EDUCATION COORDINATOR Plan of Treatment Health Maintenance Due [...] on stairs Contact your local community or [facility] for information on exercise, fall prevention programs, or options for improving home safety. Insurance MEDICARE [facility] MEDICARE [facility] Advance Directives For more information, please contact: [phone] * Full Code (Latest Code Status on File) Date Activated Date Inactivated Comments 04/10/2019 10:36 PM 04/11/2019 11:38 PM Care Teams Certified Pediatric Nurse Practitioner Relationship Specialty Start Date End Date Anton Raines MD [address] [facility] [address] [place] [id number] PCP - General Internal Medicine 04/12/19
--- OUTSIDE RECORDS SUMMARY | 2024-10-29 13:14 | XMS_ITS | Referral Summary ---
Author Organization [facility] [address] Address [address] [place] [address] Care Team Providers Care Botany Laboratory Assistant Name Role Phone Anton Raines MD Primary Care Provider [phone] Allergies Active Allergy Reactions Criticality Noted Date [...] daily Active calcium carb/D3/magnesi um/zinc (calcium carb-D3-mag wpd29-otjj) [phone] nj-kvay-tp-mg tablet Take by mouth Active potassium chloride [...] on file Legal Sex Male 4:38 AM OVERNIGHT STOCKER Gender Identity Not on file Sexual Orientation Not on file Last Filed Vital Signs Vital Sign Reading Time Taken Comments Blood Pressure 128/58 07/08/2023 2:12 PM OVERNIGHT STOCKER Pulse 79 07/08/2023 2:12 PM OVERNIGHT STOCKER Temperature 36.6 C (97.9 F) 04/11/2019 7:43 AM CDT Respiratory Rate 18 12/11/2021 9:18 AM CDT Oxygen Saturation 92% 07/08/2023 2:12 PM OVERNIGHT STOCKER Inhaled Oxygen Concentration - - Weight 132.4 kg (291 lb 14.4 oz) 07/08/2023 2:12 PM OVERNIGHT STOCKER Height 180.3 cm (5' 11 ) 07/08/2023 2:12 PM OVERNIGHT STOCKER Body Mass Index 40.71 07/08/2023 2:12 PM OVERNIGHT STOCKER Plan of Treatment Not on file Goals [...] options for improving home safety. Insurance MEDICARE [facility] MEDICARE [facility] MEDICARE [facility] Advance Directives For more information, please contact: [phone] * Full Code (Latest Code Status on File) Date Activated Date Inactivated Comments 04/10/2019 10:36 PM 04/11/2019 11:38 PM Care Teams Botany Laboratory Assistant Relationship Specialty Start Date End Date Anton Raines MD [address] [facility] [address] [place] [address] PCP - General Internal Medicine 04/12/19
--- OUTSIDE RECORDS SUMMARY | 2024-10-29 13:14 | XMS_ITS | Clinical Summary ---
Author Organization [facility] Address [address] [place] [address] Care Team Providers Care Wet Pour Supervisor Name Role Phone None, Provider Primary Care [...] age to complete this topic Care Teams Wet Pour Supervisor Relationship Specialty Start Date End Date None, Provider, PCP - General UNKNOWN PHYSICIAN SPECIALTY 07/21/22
--- OUTSIDE RECORDS SUMMARY | 2024-10-29 13:14 | XMS_ITS | Clinical Summary ---
Author Organization [facility] Address [address] [place] [address] Care Team Providers Care Locomotive Driver Name Role Phone Jh Griffin Primary Care Provider [phone] Allergies Active Allergy Reactions Criticality Noted Date [...] migh t be different from the original. Brake Reliner Dr. Malissa [place] Problem Noted Date [...] Description 10/22/2024 3:00 PM CDT Procedure visit [facility] [address] [place] [address] Cardiac pacemaker in situ (Primary Dx); Longstanding persistent atrial fibrillation (CMS/HCC); Bradycardia 10/02/2024 External Device Data STL ABSTRACTION Provider, Abstract 09/24/2024 10:30 AM CDT Office Visit [facility] [address] [place] [address] Anup Leonardo MD Longstanding persistent atrial fibrillation [...] STL ABSTRACTION Provider, Abstract 08/20/2024 9:00 AM LABORER CHEESEMAKING Procedure visit [facility] - [address] [place] [address] Cardiac pacemaker in situ (Primary Dx); Symptomatic [...] 36.4 C (97.6 F) 07/18/2024 7:30 AM LABORER CHEESEMAKING Respiratory Rate 17 07/25/2024 10:20 AM LABORER CHEESEMAKING Oxygen Saturation 98% 09/24/2024 10:35 AM CDT Inhaled Oxygen Concentration - - Weight 137.4 kg (303 lb) 09/24/2024 10:35 AM CDT Height 180.3 cm (5' 11 ) 09/24/2024 10:35 AM CDT Body Mass Index 42.26 09/24/2024 10:35 AM CDT Plan of Treatment Upcoming Encounters Date Type Department Care Team (Late st Contact Info) Description 11/19/2024 10:00 AM CDT Office Visit [facility] [address] [place] [address] Anup Leonardo MD [address] [place] [address] 01/28/2025 9:00 AM CDT Procedure visit [facility] - [address] [place] [address] Health Maintenance Due Date Last [...] 2024 04/10/2019 Medical Devices Implanted Type Area Investigation Specialist Device Identifier Shelf Expiration Date Model / Serial / Lot Lead Pacing Capsure Fix Novus 45cm [id number] - Csc - [id number] Implanted:Qty: 1 on 07/18/2024 by Ernesto Oneal MD at [facility] Lead Right: Heart [employer]- CRM - BULK BUY [id number] 05/17/2026 5076-45 / [id number] / Lead Capsurefix Novus Mri 52cm Endocardial Pacing 5076-52 - [id number] Implanted:Qty: 1 on 07/18/2024 by Ernesto Oneal MD at [facility] Lead Right: Heart [employer] CRM - BULK BUY [id number] 04/26/2026 5076-52 / [id number] / Pacemaker Jessenia Xt Dr Mri Ipg Dual Chmbr Surescan [id number] - [id number] Implanted:Qty: 1 on 07/18/2024 by Ernesto Oneal MD at [facility] Pacemaker Left: Chest [employer]- CRM - BULK [employer]Y [id number] 11/28/2025 [id number] / [id number] / Procedures Procedure Name Priority Date/Time Associated Diagnosis Comments OH REM INTERROG PM/LDLS PM/IDS <90 D TECH REVIEW Routine 10/21/2024 9:02 PM CDT Cardiac pacemaker in situ Longstanding persistent atrial fibrillation (CMS/HCC) Bradycardia OH REM INTERROG PM/LDLS PM <90 D PHYS/QHP Routine 10/21/2024 9:02 PM CDT Cardiac pacemaker in situ Longstanding persistent atrial fibrillation (CMS/HCC) Bradycardia OH INTERROG EVAL, REMOTE, UP TO 90 DAYS, PACER/DEFIB WITHIN GLOBAL Routine 08/20/2024 12:11 AM LABORER CHEESEMAKING Cardiac pacemaker in situ Symptomatic bradycardia Bradycardia Longstanding persistent atrial fibrillation (CMS/HCC) Severe sinus bradycardia OH INTERROG EVAL,REMOTE,UP TO 90 DAYS,PACEMAKER WITHIN GLOBAL Routine 08/20/2024 12:11 AM LABORER CHEESEMAKING Cardiac pacemaker in situ Symptomatic bradycardia Bradycardia Longstanding persistent atrial fibrillation (CMS/HCC) Severe sinus bradycardia from Last 3 Months Results * OH REM INTERROG PM/LDLS PM <90 D PHYS/QHP, OH REM INTERROG PM/LDLS PM/IDS <90 D TECH REVIEW (10/21/2024 9:02 PM CDT) Only the most recent of2 resultswithin the time period is included. 10/21/2024 9:02 PM CDT Ernesto Oneal MD CARDIAC SERVICES ORDERABLES Pollo yohana Result - Final Performing Organization Address City/State/[facility] Co de Phone Number INTERFACE SYSTEM Refer to clinic/hospital department from Last 3 Months Insurance MEDICARE PART A AND B [facility] SUPP Advance Directives For more information, please contact: [phone] * Full Code (Latest Code Status on File) Date Activated Date Inactivated Comments 07/18/2024 7:10 AM 07/18/2024 1:39 PM Care Teams Locomotive Driver Relationship Specialty Start Date End Date Jh Griffin DO [address] [facility] [address] [facility] [address] [place] [id number] PCP - General Internal Medicine 07/10/24
== END 2024-10-29 11:14 | disposition home or self-care (01) ==
PROVIDERS: PCP Internal Medicine; Visit Provider Internal Medicine
DX: R06.09 Other forms of dyspnea (principal); D64.9 Anemia, unspecified; J90 Pleural effusion, not elsewhere classified
CPT/HCPCS: 36415; 71046; 82728; 83540; 83550; 85025; 85055

== ENCOUNTER 2024-11-19 14:16 | Outpatient (CLI) | payer MEDICARE, SELFPAY ==
--- NOTE | ~2024-11-19 | XR_ITS ---
CHEST RADIOGRAPH, PA AND LATERAL CLINICAL HISTORY: CHRONIC HEART FAILURE W/PRESERVED EJECTION FRACTION . COMPARISON: 10/29/2024 TECHNIQUE: PA and lateral views of the chest. FINDINGS The left mid lung is partially obscured due to pacemaker generator. Wires project over the right atrium and right ventricle. The remainder of the cardiomediastinal silhouette is enlarged, but otherwise unremarkable. The lungs are clear. IMPRESSION: No focal infiltrate or effusion. Reviewed, dictated and finalized at location A.
--- OUTSIDE RECORDS SUMMARY | 2024-11-19 14:20 | XMS_ITS | Clinical Summary ---
Author Organization [facility] Address [address] [place] [address] Care Team Providers Care Senior Mortgage Loan Processor Name Role Phone None, Provider Primary Care [...] age to complete this topic Care Teams Senior Mortgage Loan Processor Relationship Specialty Start Date End Date None, Provider, PCP - General UNKNOWN PHYSICIAN SPECIALTY 07/21/22
--- OUTSIDE RECORDS SUMMARY | 2024-11-19 14:21 | XMS_ITS | Clinical Summary ---
Author Organization [facility] Address [address] [place] [phone] Care Team Providers Care Body Hanger Name Role Phone Jh Griffin DO Primary Care Provider [phone] Allergies Active Allergy Reactions Criticality Noted Date [...] 0.4 mg by mouth daily. 2 Active cholecalcifero l, vitamin D3, 1,000 unit Take 1,000 Units by mouth daily. Active Breztri Aerosphere 160 mcg-9mcg-4.8mc g/actuation HFA aerosol inhaler Take 2 Puffs by [...] 6 hours as needed for Pain. Active metoprolol succinate (Toprol XL) 25 mg Extended Release 24 hour tablet Take 1 Tablet (25 mg) by mouth daily. 30 Tablet 11 5 Active potassium CHLORIDE (K-TAB) 20 mEq Extended Release tablet Take 1 Tablet (20 mEq) by mouth 2 times daily with meals. 180 Tablet 3 5 Active bumetanide (BUMEX) 2 mg tablet Take 1 Tablet (2 mg) by mouth 2 times daily. 60 Tablet 5 Active metOLazone (ZAROXOLYN) 2.5 mg tablet Take 1 Tablet (2.5 mg) by mouth see administration instructions. As directed only by CHF team 30 Tablet 5 Active Additional Information Patient taking differently:2.5 mg Oral SEE ADMIN INSTRUCTIONS,Once weekly on Tuesday, Reported on 11/19/2024 Hospital, Clinic, or Other Facility Administered Medication Ordered Dose Route Frequency Start Date End Date Status bumetanide (BUMEX) injection 2 mgIndications:Chronic heart failure with preserved ejection fraction (CMS/HCC) 2 mg IV ONE TIME ONLY 11/12/2024 11/12/2024 End ed metOLazone (ZAROXOLYN) tablet 2.5 mgIndications:Chronic heart failure with preserved ejection fraction (CMS/HCC) 2.5 mg Oral ONE TIME ONLY 11/12/2024 11/12/2024 End ed bumetanide (BUMEX) injection 2 mgIndications:Acute systolic congestive heart failure (CMS/HCC) 2 mg IV ONE TIME ONLY 11/14/2024 5 Ended potassium CHLORIDE (K-DUR,KLOR-CON M20) SR tablet 20 mEqIndications:Acute systolic congestive heart failure (CMS/HCC) 20 mEq Oral ONE TIME ONLY 11/14/2024 5 Ended Active Problems Patient Care Coordination No te Formatting of this note migh t be different from the original. Silk Soaker Dr. Malissa [place] Problem Noted Date [...] Encounters Date Type Department Care Team Description 11/19/2024 10:00 AM CDT Office Visit [facility] [address] [place] [id number] Anup Leonardo MD Chronic heart failure with preserved ejection fraction (CMS/HCC) (Primary Dx); Longstanding persistent atrial fibrillation (CMS/HCC); Mixed hyperlipidemia; HAZEL on CPAP; Morbid obesity with BMI of 40.0-44.9, adult (CMS/HCC); Chronic anticoagulation; S/P placement of cardiac pacemaker; H/O: CVA (cerebrovascular accident); History of pulmonary embolism; Iron deficiency anemia, unspecified iron deficiency anemia type 11/14/2024 9:00 AM CDT Clinical Support [facility] [address] [id number] Acute systolic congestive heart failure (CMS/HCC) (Primary Dx) 11/14/2024 9:00 AM CDT Office Visit [facility] [address] [place] [address] Madhavi Wade, RESIDENT CARE COORDINATOR-BC Acute systolic congestive heart failure (CMS/HCC) (Primary Dx); Longstanding persistent atrial fibrillation (CMS/HCC); S/P placement of cardiac pacemaker; Pulmonary hypertension (CMS/HCC) 11/12/2024 1:00 PM CDT Clinical Support [facility] [address] [place] [address] Chronic heart failure with preserved ejection fraction (CMS/HCC) (Primary Dx) 11/12/2024 1:00 PM CDT Office Visit [facility] [address] [place] [address] Madhavi Wade, [facility] Acute systolic congestive heart failure (CMS/HCC) (Primary Dx); S/P placement of cardiac pacemaker; Longstanding persistent atrial fibrillation (CMS/HCC); Chronic anticoagulation; H/O: CVA (cerebrovascular accident); Pulmonary hypertension (CMS/HCC) 11/12/2024 Telephone [facility] [address] [place] [address] Aunp Leonardo MD Question 10/22/2024 3:00 PM CDT Procedure visit [facility] [address] [place] [address] Cardiac pacemaker in situ (Primary Dx); Longstanding persistent atrial fibrillation (CMS/HCC); Bradycardia 10/02/2024 External Device Data [facility] ABSTRACTION Provider, Abstract 09/24/2024 10:30 AM CDT [facility] Visit [facility] [address] [place] [address] Anup Leonardo MD Longstanding persistent atrial fibrillation [...] External Device Data [facility] ABSTRACTION Provider, Abstract from Last 3 Months Family History Medical [...] e alcohol) Food Insecurity Answer Date Recorded Patient needs follow up regardin 11/04/2024 Transportation Needs Answer Date Record ed Patient needs follow up regardin 11/04/2024 Housing Stability Answer Date Recorded Social/Environmental Concerns No concerns Utility Needs Answer Date Recorded Patient needs follow up regardin 11/04/2024 Sex and Gender Information Value Date Recorded Sex Assigned at Not on file Legal Sex Male 10:16 PM CDT Gender Identity Not on file Sexual Orientation Not on file Occupation Industry Job Start Date Job End Date Not on file Not on file Not on file Not on file Last Filed Vital Signs Vital Sign Reading Time Taken Comments Blood Pressure 92/52 11/19/2024 9:53 AM CDT Pulse 62 11/19/2024 9:53 AM CDT Temperature 36.4 C (97.6 F) 07/18/2024 7:30 AM SKILLED NURSING CASE MANAGER Respiratory Rate 20 11/14/2024 9:51 AM CDT Oxygen Saturation 99% 11/19/2024 9:53 AM CDT Inhaled Oxygen Concentration - - Weight 134.3 kg (296 lb) 11/19/2024 9:53 AM CDT Height 180.3 cm (5' 11 ) 11/19/2024 9:53 AM CDT Body Mass Index 41.28 11/19/2024 9:53 AM CDT Plan of Treatment Upcoming Encounters Date Type Department Care Team (Late st Contact Info) Description 12/17/2024 10:15 AM CDT [facility] Visit [facility] [address] [place] [address] Anup Leonardo MD [address] [place] [address] 01/28/2025 9:00 AM CDT Procedure visit [facility] [address] [place] [address] Health Maintenance Due Date Last Done Comments DTAP/TDAP/TD VACCINES (1 - Tdap) 1969 Traditional Medicare (ACO) Annual Wellness Visit 06/01 COLORECTAL SCREENING 1995 Colorectal Cancer Screening 1995 [...] 2024 04/10/2019 Medical Devices Implanted Type Area Biometric Screener Device Identifier Shelf Expiration Date Model / Serial / Lot Lead Pacing Capsure Fix Novus 45cm [id number] - Csc - [id number] Implanted:Qty: 1 on 07/18/2024 by Ernesto Oneal MD at [facility] Lead Right: Heart [employer]- CRM - BULK BUY [id number] 05/17/2026 5076-45 / [id number] 8V / Lead Capsurefix Novus Mri 52cm Endocardial Pacing 5076-52 - [id number] Implanted:Qty: 1 on 07/18/2024 by Ernesto Oneal MD at [facility] Lead Right: Heart [employer]- CRM - BULK [employer]Y [id number] 04/26/2026 5076-52 / [id number] 9V / Pacemaker Jessenia Xt Dr Mri Ipg Dual Chmbr Surescan [id number] - [id number] Implanted:Qty: 1 on 07/18/2024 by Ernesto Oneal MD at [facility] Pacemaker Left: Chest [employer]- CRM - BULK BUY [id number] 11/28/2025 [id number] / [id number] / Procedures Procedure Name Priority Date/Time Associated Diagnosis Comments POC ELECTROLYTES/BMP Routine 11/14/2024 9:42 AM CDT Acute systolic congestive heart failure (CMS/HCC) POC ELECTROLYTES/BMP Routine 11/12/2024 1:50 PM CDT Chronic heart failure with preserved ejection fraction (CMS/HCC) MO REM INTERROG PM/LDLS PM/IDS <90 D TECH REVIEW Routine 10/21/2024 9:02 PM CDT Cardiac pacemaker in situ Longstanding persistent atrial fibrillation (CMS/HCC) Bradycardia MO REM INTERROG PM/LDLS PM <90 D PHYS/QHP Routine 10/21/2024 9:02 PM CDT Cardiac pacemaker in situ Longstanding persistent atrial fibrillation (CMS/HCC) Bradycardia from Last 3 Months Results * (ABNORMAL) POC ELECTROLYTES/BMP (11/14/2024 9:42 AM CDT) Only the most recent of2 resultswithin the time period is included. SODIUM POC 143 138 - 146 mmol/L [facility] [address] POTASSIUM POC 3.5 3.5 - 4.9 mmol/L [facility] [address] CHLORIDE POC 99 98 - 109 mmol/L [facility] [address] CALCIUM IONIZED POC 9.5(A) 4.4 - 5.2 mg/dL [facility] [address] CALCIUM POC [facility] [address] TOTAL CO2 POC 29 22 - 30 mmol/L [facility] [address] GLUCOSE POC 130(A) 65 - 99 mg/dL [facility] [address] BLOOD UREA NITROGEN POC 25 8 - 26 mg/dL [facility] [address] DR CREATININE POC 1.30 0.60 - 1.30 mg/dL [facility] [address] DR HEMOGLOBIN POC [facility] [address] HEMATOCRIT POC [facility] [address] ANION GAP POC [facility] [address] COMMENT, BMP POC [facility] [address] Blood 11/14/2024 9:42 AM CDT us Madhavi Wade RESIDENT CARE COORDINATOR-BC POINT OF CARE TESTING Final Result [facility] [address] TIM# [id number] [address] [place] [address] * MO REM INTERROG PM/LDLS PM <90 D PHYS/QHP, MO REM INTERROG PM/LDLS PM/IDS <90 D TECH REVIEW (10/21/2024 9:02 PM CDT) 10/21/2024 9:02 PM CDT us Ernesto Oneal MD CARDIAC SERVICES ORDERABLES [place]o yohana Result - Final INTERFACE SYSTEM Refer to clinic/hospital department from Last 3 Months Insurance MEDICARE PART A AND B [facility] Advance Directives For more information, please contact: [phone] * Full Code (Latest Code Status on File) Date Activated Date Inactivated Comments 07/18/2024 7:10 AM 07/18/2024 1:39 PM Care Teams Body Hanger Relationship Specialty Start Date End Date Jh Griffin DO [address] [facility] [address] [facility] [address] [place] [id number] PCP - General Internal Medicine 07/10/24
--- OUTSIDE RECORDS SUMMARY | 2024-11-19 14:21 | XMS_ITS | Referral Summary ---
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 Gender Identity Not on file Sexual Orientation Not on file Last Filed Vital Signs Vital Sign Reading Time Taken Comments Blood Pressure 128/58 07/08/2023 2:12 PM SENIOR GEOTECHNICAL ENGINEER Pulse 79 07/08/2023 2:12 PM SENIOR GEOTECHNICAL ENGINEER Temperature 36.6 C (97.9 F) 04/11/2019 7:43 AM CDT Respiratory Rate 18 12/11/2021 9:18 AM CDT Oxygen Saturation 92% 07/08/2023 2:12 PM SENIOR GEOTECHNICAL ENGINEER Inhaled Oxygen Concentration - - Weight 132.4 kg (291 lb 14.4 oz) 07/08/2023 2:12 PM SENIOR GEOTECHNICAL ENGINEER Height 180.3 cm (5' 11 ) 07/08/2023 2:12 PM SENIOR GEOTECHNICAL ENGINEER Body Mass Index 40.71 07/08/2023 2:12 PM SENIOR GEOTECHNICAL ENGINEER Plan of Treatment Not on file Goals [...] options for improving home safety. Insurance MEDICARE [facility] MEDICARE [facility] MEDICARE [facility] Advance Directives For more information, please contact: [phone] * Full Code (Latest Code Status on File) Date Activated Date Inactivated Comments 04/10/2019 10:36 PM 04/11/2019 11:38 PM Care Teams Production Control Manager Relationship Specialty Start Date End Date Anton Raines MD [address] [facility] [address] [place] [address] PCP - General Internal Medicine 04/12/19
--- OUTSIDE RECORDS SUMMARY | 2024-11-19 14:21 | XMS_ITS | Clinical Summary ---
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 Gender Identity Not on file Sexual Orientation Not on file Obstetrics History Last Filed Vital Signs Vital Sign Reading Time Taken Comments Blood Pressure 128/58 07/08/2023 2:12 PM CHILD AND YOUTH PROGRAM ASSISTANT Pulse 79 07/08/2023 2:12 PM CHILD AND YOUTH PROGRAM ASSISTANT Temperature 36.6 C (97.9 F) 04/11/2019 7:43 AM CDT Respiratory Rate 18 12/11/2021 9:18 AM CDT Oxygen Saturation 92% 07/08/2023 2:12 PM CHILD AND YOUTH PROGRAM ASSISTANT Inhaled Oxygen Concentration - - Weight 132.4 kg (291 lb 14.4 oz) 07/08/2023 2:12 PM CHILD AND YOUTH PROGRAM ASSISTANT Height 180.3 cm (5' 11 ) 07/08/2023 2:12 PM CHILD AND YOUTH PROGRAM ASSISTANT Body Mass Index 40.71 07/08/2023 2:12 PM CHILD AND YOUTH PROGRAM ASSISTANT Plan of Treatment Health Maintenance Due Date [...] on stairs Contact your local community or [facility] for information on exercise, fall prevention programs, or options for improving home safety. Insurance MEDICARE [facility] MEDICARE [facility] Advance Directives For more information, please contact: [phone] * Full Code (Latest Code Status on File) Date Activated Date Inactivated Comments 04/10/2019 10:36 PM 04/11/2019 11:38 PM Care Teams Electrician Constructor Supervisor Relationship Specialty Start Date End Date Anton Raines MD [address] [facility] [address] [place] [id number] PCP - General Internal Medicine 04/12/19
--- OUTSIDE RECORDS SUMMARY | 2024-11-19 14:21 | XMS_ITS | Patient Health Record ---
Author Organization [facility] As Generaytor Address [address] [place] [address] Care Team Providers Care Bell Captain Name Role Phone Jh Griffin DO Primary Care Provider UnavailJesus Curtis Unavailable [phone] Migration, Provider Unavailable Unavailable Allergies Allergen (clinical drug ingredient) Drug/Non Drug Allergy documented on EMR Reaction Allergy Type Onset Date Status Sulfur Dioxide SULFUR DIOXIDE (uncoded) Unknown Allergy 05/30/2023 Active SULFUR HEXAFLUORIDE MICROSPHERES (uncoded) Unknown Allergy 05/30/2023 Active Reason For Referral No Information Medications Medication SIG (Take, Route, Frequency, Duration) Notes Start Date End Date Status Sertraline HCl 100 MG 1 tablet Oral Once a day for 90 days Active Memantine HCl 10 MG 1 tablet Orally twice a day for 90 days Active metOLazone 2.5 MG Oral for 30 Days Active Memantine HCl 10 MG 1 tablet Orally twice a day for 90 days Active Sertraline HCl 100 MG TAKE 1 TABLET BY MOUTH EVERY DAY FOR 90 DAYS for 90 Active Potassium Chloride ER 10 MEQ Oral 08/22/2023 Active Felodipine ER 10 mg Oral 08/22/2023 Active Bumetanide 2 MG Oral for 30 Days Active Lisinopril 10 MG Oral 08/22/2023 Ac tive Omeprazole 20 MG Oral 08/22/2023 Ac tive Jardiance 10 MG Oral for 30 Days Active Atorvastatin Calcium 80 MG Oral 08/22/2023 Active Eliquis 5 MG Oral 08/22/2023 Active Breztri Aerosphere 160-9-4.8 MCG/ACT Inhalation *Reorder from [employer] for eRx and Interaction Alerts* 08/22/2023 Active Tamsulosin HCl 0.4 MG Oral 08/22/2023 Active Social History Tobacco Use: Social History Observation Description Date Details (start date - stop date) Never Smoker NA - NA Sex Assigned At : Social History Observation Description Sex Assigned At Male Tobacco Control (Standard) Question Answer Notes Tobacco use: Nonsmoker Problems Problem Type SNOMED Code ICD Code Onset Dates Problem Status W/U Status Risk Notes Problem Moderate recurrent major depression (28931635) Major depressive disorder, recurrent, moderate (F33.1) 08/22/2023 Active confirmed Problem Mild cognitive impairment, so stated (G31.84) 08/22/2023 Active confirmed Vital Signs Heart Rate 83 /min 11/15/2024 Height-cm 180.34 cm 11/15/2024 Blood pressure diastolic 80 mm Hg 11/15/2024 Weight-kg 138.8 kg 11/15/2024 Height 71.00 in 11/15/2024 Blood pressure systolic 122 mm Hg 11/15/2024 Weight 306 lbs 11/15/2024 BMI 42.67 kg/m2 11/15/2024 Procedures Procedure Date Ordered Date Performed Result Body Sit e MCI Testing 08/24/2024 10/18/2024 N/A SLUMS Testing 08/24/2024 10/18/2024 N/A Encounters Encounter Location Date Provider Diagnosis [facility] [address] [address] 02/20/2024 Jesus Joseph Mild cognitive impairment, so stated G31.84 and Major depressive disorder, recurrent, moderate F33.1 [facility] [place] [address] [address] 08/24/2024 Jesus Joseph Mild cognitive impairment, so stated G31.84 and Major depressive disorder, recurrent, moderate F33.1 [facility] [address] [facility] [address] [place] [address] 10/18/2024 Jesus Joseph Mild cognitive impairment, so stated G31.84 [employer] [facility] [place] [address] [facility] [address] [place] [address] 11/15/2024 Jesus Joseph Mild cognitive impairment, so stated G31.84 ; Major depressive disorder, recurrent, moderate F33.1 ; Encounter for screening for depression Z13.31 and Encounter for screening for cardiovascular disorders Z13.6 [facility] [address] [facility] [address] [place] [address] 11/20/2023 Provider Migration [facility] [address] [facility] [address] [place] [address] 04/20/2024 Jesus Ruiz Mild cognitive impairment, so stated G31.84 Assessments Encounter Date Diagnosis (ICD Code) Assessment Notes Treatment Notes Treatment Clinical Notes Section Notes 04/20/2024 Mild cognitive impairment, so stated (ICD-10 - G31.84) 08/24/2024 Mild cognitive impairment, so stated (ICD-10 - G31.84) 10/18/2024 Mild cognitive impairment, so stated (ICD-10 - G31.84) Thank you for sharing the cognitive results and SLUMS/IQCODE scores for Katlyn Kumar (: 1950). Here is a structured and clinically-orien yohana interpretation of the findings: Cognitive Status Overview Comparative Group: Males, age 65-74 Date of Assessment: October 18, 2024 Tasks Completed: 6 cognitive domains 1. SLUMS ([facility] Mental Status Exam) Total Score: 22 [...] loss of function. 3. Cognitive Marker Breakdown (Percentile-base d) Domain Score Interpretation Feature Match (Attention) 88 [...] which supports neuroplasticity. Diet & Lifestyle: Consider Mediterranean-st yle diet, which has evidence for cognitive support. Monitor for sleep quality, mood symptoms, and medication side effects. Cognitive Exercises Recommended: n-back training for working memory. Paired-associate learning tasks or card-matching apps. Verbal span training using free apps like [employer] or Peak. 11/15/2024 Major depressive disorder, recurrent, moderate (ICD-10 - F33.1) 11/15/2024 Mild cognitive impairment, so stated (ICD-10 - G31.84) 02/20/2024 Major depressive disorder, recurrent, moderate (ICD-10 [...] depressive disorder, recurrent, moderate (ICD-10 - F33.1) 11/15/2024 Encounter for screening for depression (ICD-10 - Z13.31) 11/15/2024 Encounter for screening for cardiovascular disorders (ICD-10 - Z13.6) 08/24/2024 Other Pacemaker Insertion - Plan: - Continue to monitor the patient's progress. - Follow up with a fish bin tender as needed. Depression - Plan: - Continue [...] memantine 10 mg twice a day to [facility] pharmacy. Lifestyle - Plan: - Encourage the patient to maintain a healthy lifestyle. - Encourage engagement in activities that promote mental and physical well-being. 11/15/2024 Other referral to the local chapter or national office of the Alzheimer's Association (9-175-065-39 00; http://www.al z.org), the Alzheimer's Disease Education and Referral Center (ADEVA) (0-563-429-43 80; http://www.ni a.nih.gov/Alz karyna/), referral to the local [facility] or national office of the Alzheimer's Association (4-946-694-39 00; http://www.al z.org), the Alzheimer's Disease Education and Referral Center (ADEVA) (8-737-887-18 80; http://www.2heuresavant a.nih.gov/Alz karyna/), Katlyn Kumar, an elderly male patient with congestive heart failure, presented with fluid retention and cognitive changes following recent diuretic therapy. Congestive Heart Failure with Fluid Retention Assessment: Patient recently hospitalized at [facility] on Tuesday for significant fluid retention affecting heart and lungs. Treated with Bumex injection and oral Bumex twice daily, replacing previous furosemide regimen. Metolazone added to treatment plan. Patient experienced rapid fluid loss of 17 pounds over 2 days. Lungs were reported clear of fluid by another provider on the day prior to this visit. Patient still experiences labored breathing with movement. Plan: - Continue Bumex as prescribed (twice daily) - Administer metolazone on Tuesday morning - Follow up with fish bin tender on Tuesday - Monitor for further fluid retention and breathing difficulties Cognitive Changes Assessment: Patient experiencing mild cognitive changes, possibly exacerbated by recent diuretic therapy. Reported increased forgetfulness and difficulty concentrating. Cognitive testing results: SLUMS score of 23, IQCODE score of 3. Computer test results show average ability to focus on relevant details (score 88) and low average performance on paired associates test, indicating some difficulty with contextual memory. Currently on memantine 10 mg twice daily for cognitive support. Plan: - Continue memantine 10 mg PO twice daily - Encourage cognitive stimulation: puzzles, memory games, reading - Promote engagement in family, friend, and social activities - Schedule follow-up cognitive testing in 6 months - Monitor for worsening cognitive symptoms Functional Limitation Assessment: Patient uses a walker for mobility. Activities of Daily Living (ADL) score is 3 out of 5, consistent with limitations expected due to congestive heart failure. Plan: - Continue to monitor functional status - Reassess ADL score at future visits Sleep Disturbance Assessment: Patient reports inability to sleep or achieve quality sleep, likely due to frequent urination associated with diuretic therapy. Plan: - Monitor sleep quality as diuretic regimen stabilizes - Reassess sleep patterns at follow-up visits Disclaimer: This note has been transcribed using speech recognition software and serves as a reflection of the patient's visit. While efforts have been made to ensure accuracy, there may be errors, including senior procurement manager inaccuracies and misspellings of medication names. This document should not be considered a verbatim record, and any discrepancies should be verified with the provider. Plan Of Treatment Next Appt Details Provider Name:Jesus Ruiz , 05/16/2025 10:30:00 AM, [address] [facility] [address], [facility] [address], [place], [address], Insurance Providers Payer Name Payer Address Payer Phone Subscriber Number Group Number Insured Name Patient Relationship to Insured Coverage Start Date Coverage End Date Medicare-I l Medicare [address] [place] [address] [id number] KATLYN KUMAR Self - patient is the insured [facility] P[facility] [address] [place] [address] [id number] KATLYN KUMAR Self - patient is the insured Medical (General) History Medical History History ICD Code Problems: Generalized anxiety disorder Mild neurocognitive disorder Moderately severe recurrent major depres mikaela , Surgical History Surgery Date(Month/Year) Other 12/02/2016 Any surgical history 03/04/2021 pacemaker put in 07/2024 Hospitalization History Reason Date(Month/Year) twice for fluid retention, g ot two shots of medications added and potassium to help, bad back pain 11/2024
--- OUTSIDE RECORDS SUMMARY | 2024-11-19 14:21 | XMS_ITS | Encounter Summary ---
Author Organization [facility] Address [address] [place] [address] Care Team Providers Care Rug Weaver Name Role Phone Jh Griffin Primary Care Provider [phone] Reason for Visit * Reason Comments Congestive Heart Failure (office visit) Echo scheduled for this Atrial Fibrillation (office visit) Shortness of Breath Increased. Recent FM P clinic down 10 lb Encounter Details Date Type Department Care Team (Late st Contact Info) Description 11/19/2024 10:00 AM CDT Office Visit [facility] [address] [place] [address] Anup Leonardo MD [address] [address] Chronic heart failure with preserved ejection fraction (CMS/HCC) (Primary Dx); Longstanding persistent atrial fibrillation (CMS/HCC); Mixed hyperlipidemia; HAZEL on CPAP; Morbid obesity with BMI of 40.0-44.9, adult (CMS/HCC); Chronic anticoagulation; S/P placement of cardiac pacemaker; H/O: CVA (cerebrovascular accident); History of pulmonary embolism; Iron deficiency anemia, unspecified iron deficiency anemia type Social History Tobacco Use Types Packs/Day Years [...] file Not on file Not on file documented as of this encounter Last Filed Vital Signs Vital Sign Reading Time Taken Comments Blood Pressure 92/52 11/19/2024 9:53 AM CDT Pulse 62 11/19/2024 9:53 AM CDT Temperature - - Respiratory Rate - - Oxygen Saturation 99% 11/19/2024 9:53 AM CDT Inhaled Oxygen Concentration - - Weight 134.3 kg (296 lb) 11/19/2024 9:53 AM CDT Height 180.3 cm (5' 11 ) 11/19/2024 9:53 AM CDT Body Mass Index 41.28 11/19/2024 9:53 AM CDT documented in this encounter Progress Notes * Anup Leonardo MD - 11/19/2024 10:14 AM CDT Images from the original note were not included. [facility] Outpatient Progress Note Date of Service: 11/19/24 Primary Care Physician: Jh Griffin DO Referring Physician: No ref. provider found Chief Complaint Patient presents with Congestive Heart Failure (office visit) Echo scheduled for this Atrial Fibrillation (office visit) Shortness of Breath Increased. Recent [facility] clinic down 10 lb History of Present Illness: Patient is a pleasant 74 y.o. male with a PMHx significant for PMHx of COPD, HAZEL, morbid obesity, chronic back pain, CHF, A.Fib dx 12/2020 seen in very kind referral by Anton Rainse MD for my opinion regarding atrial fibrillation. OLD RECORDS CareEverywhere: 09/17/20 Initial visit: Was set to have back surgery December 2020 but preop workup A.Fib diagnosed so postponed, had previously seen Dr. Daniels. Had surgery 03/2021. He had no sxs or knowledge of A.Fib. Has Kardiomobile always shows A.Fib. Started on Xarelto since November 2017 for PE. He has been on Toprol XL 100mg for years then prior Contour Stitcher reduced it due to bradycardia. Occ gets a heavy feeling in chest typically at restnot with exertion, Occurs maybe weekly lasts a short time and in fact can resolve if gets up and moves around, some SOB as well. Jul went to ER at [facility] with CHF given IV Lasix which helped him a lot remains on po Lasix, edema wearing compression stockings. Feeling better overall. No l onger seeing Dr. Daniels as he was frequently unavailable. Trying to take LAsix 40mg every other dailyfor 1 week thus far. 10/27/21 still has edema, wt up 7lb on our scale, same SIFUENTES, admits he rests but primarily due to back pain which he says is biggest issue. Seeing pain management. Taking Lasix 40mg alternating with 40mg BID with KCl 10MEQ daily. No CP or palps 12/11/21 Doing ok weight stable. Seeing pain management for back pain still an issue. Edema same, urine output a little less no issues though. SOB same overall. No palps, CP, SOB or dizziness. No bleeding. Anjana meds. Feels pretty good other than his back pain. Inquired if ED drugs would be ok in the future if if came to that. 06/01/22 CAT visit- Unfortunately he suffered an embolic stroke on 05/14/2022 and was treated at [facility]. He had been compliant with Xarelto so he was changed to Eliquis. Lisinopril/HCTZ and felodipine were held. Echocardiogram showed normal LV and RV size and systolic function, moderate LAE, negative bubble study. Since discharge he has resumed felodipine but lisinopril/HCTZ is still on hold. Most blood pressures recently at home have been systolic 150 to 160s, diastolic 70 to 80s. Resting heart rate is in the 40s and the patient states it has been this way for the past year so. Heis not taken any metoprolol since discharge because they were advised to hold it if his pulse was below 60. Residual side effects from the stroke or problems with eyesight and reading comprehension. He has PCP annual appointment on 06/15/2022. He currently has home health. He has not been able to sleep in bed since discharge because of orthopnea so he is sleeping in a chair. His daughter is concerned about recurrence of pulmonary embolism. He did have lower extremity edema but this has now resolved and he is wearing compression socks and taking 40 mg of furosemide daily. 07/16/22 CAT visit- he has since been back to the neurologist (partner of Dr. Renee) and no changeswere made. Memory and word-finding has gotten a little better. He still has home health visits. BP at home this morning was 113/77 but he reports most home readings are systolic 140s. His pulse will go into the 70s when he is up and walking around. He does feel tired a lot but is still sleeping in a recliner and not using his CPAP. He has follow-up with PCP next week. 10/29/22 Doing better from CVA still has memory issues but improving, doing PT. Going to see ENT dueto congestion using nasal spray. BP ok a little higher at times in the evening 150 or so not usually an issue. No CP. Fell x2 able to get up himself trying to get his coat on lost his balance no LOC,no head injury or otherwise, uses walker all the time. On Eliquis 5mg BID. Breathing stable. Wears compression stockings edema persists but is stable as well. 02/10/23 CAT visit- he returns for routine follow-up accompanied by his . He was hospitalized inearly January for CHF and required thoracentesis (records not available to me at the time of this visit as we were not consulted to see him). He is now taking furosemide 40 mg b.i.d. and KCl b.i.d.. He is had no further falls and is walking better, doing PT, word-finding is a little better. Home bloodpressure readings are systolic 140-150, diastolic 75-85. 05/06/23 about the same overall. Back pain is the biggest issue and he notes he is much more SOB when he has severe back pain like today. SOB resolves quickly at rest when he sits as his pain dissipates quickly as well. He remains on Eliquis. No falls or bleeding. Not as active as he would like. says he is able to walk and his cognition is improving just can't stay active for long periods of time. Seeing Dr Villarreal. 07/08/23 Sleep mixed up his says, in recliner, on CPAP now again. Has lost 10lb can tell difference and feels better. says he is doing better. He often stays up until 3AM, disjointed sleep. Still SIFUENTES but improved has sinus congestion currently. Trying to do more things during the day. Back pain remains a major limiting factor. Stress test done normal EF 50%. Seeing Pulm. Initial visit 12/19/23: Having sinus issues needs rhinoplasty SOB as he cannot breath through his nose difficult to breath using his CPAP but does use it. He states he needs cardiac clearance. Stable lower extremity edema no progression. Denies any limitations with activity including chest pain or shortness of breath. He states he does have shortness of breath due to difficulty breathing nonetheless. No palpitations, falls. He is tolerating and compliant with his medications. He states he definitely needs to have surgery performed. 04/17/24 always has edema tries to wear compression stockings. Having a lot more SOB past several days. Pain in R side with deep breathing similar to when he had thoracentesis. He took additional Lasix 40mg to equal total of 120mg which has helped, less pleuritic pain. No F/C, but nonproductive cough. Did well with his nose surgery. Not weighing himself daily, 05/23/24: Feeling about the same, tired, Echo done. Energy so so , SOB varies sometimes fine othersnot great SIFUENTES with ADL's can get quite winded some days better than others. Wears CPAP. On Lasix 80mg in AM and 40mg in afternoon. L thoracentesis 04/30 at [place] no improvement in sxs. 06/25/24: he is very fatigued, worsening wants to sleep all the time. Holter with avg 50bpm and they note HR can be in lower 40's and feels even more fatigued, tired, SOB. He is very tired. No syncope denies sig dizziness, no falls or imbalance. No CP or palps. 09/24/24: Still sleeps quite a bit but not nearly as tired as he was but if sits too long he will still fall asleep. He and his most definitely have improved how he feels improved quality of life. 11/14/24 DK, FABRICATION OPERATOR visit: Due to acute volume overload, I recommend referral to [facility] for IV diuresis. Per [facility] protocol: Daily POC BMP cr 1.3 Replete K to keep K > 4, K 3.5 Start IV per protocol Give IV bumex 2mg Current home diuretic change to bumex 2mg BID, plan metolazone 2.5mg 21 week on FRIDAYS Increase K to 20meq BID Plan [facility] visits x PRN days Close CHF follow up arranged for Dr Leonardo next week. 11/19/24: more SOB but weight down 10lbs. Edema is better but SOB is worse. 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 Maybe tired, feels hard to breath. No wheezing, chest congestion and cough clear sputum, though. Sxs worse for 2 weeks. Had CXR end of October. Wearing CPAP. They are concerned he is dehydrated. No F/C. Hgb 8.2 scheduled for Echo at [place] on ordered by PCP. +orthopnea. Going to startlymphedema therapy soon. Past Medical History: Past Medical History: Diagnosis Date A-fib ([facility]) Bradycardia COPD (chronic obstructive pulmonary disease) ([facility]) CVA (cerebral vascular accident) ([facility]) H/O blood clots 2018 HTN (hypertension) Hyperlipidemia Memory loss 05/13/21 Stroke Pulmonary embolism ([facility]) Past Surgical History: Past Surgical History: Procedure Laterality Date HX CARDIAC CATHETERIZATION 07/04/1999 HX HEART CATHETERIZATION HX RETINAL SURGERY Left 2016 HX SPINAL SURGERY 2011 Back surgery HX SURGICAL OTHER 3 back surgeries [place] INS NEW/RPLCMT PRM PM W/TRANSV ELTRD ATRIAL&VENT N/A 07/18/2024 Pacemaker insertion performed by Ernesto Oneal MD at [facility] Social History: Social History Tobacco Use Smoking status: Former Current packs/day: 0.00 Types: Cigarettes Quit date: 1994 Years since quittin.4 Smokeless tobacco: Not on file Substance Use Topics Alcohol use: Never Family History: Family History Problem Relation Name Age of Onset Cancer Mother Heart Attack Father Heart Attack Sister Unknown Sister Unknown Sister Allergies: Allergies Allergen Reactions Sulfa (Sulfonamide Antibiotics) Unknown Current Medications: Current Outpatient Medications on File Prior to Visit Medication Sig Dispense Refill bumetanide (BUMEX) 2 mg tablet Take 1 Tablet (2 mg) by mouth 2 times daily. 60 Tablet 0 metoprolol succinate (Toprol XL) 25 mg Extended Release 24 hour tablet Take 1 Tablet (25 mg) by mouth daily. 30 Tablet 11 potassium CHLORIDE (K-TAB) 20 mEq Extended Release tablet Take 1 Tablet (20 mEq) by mouth 2 times daily with meals. 180 Tablet 3 acetaminophen (TYLENOL ARTHRITIS) 650 mg Extended Release tablet Take 650 mg by mouth every 6 hoursas needed for Pain. empagliflozin (Jardiance) 10 mg tablet Take 1 Tablet (10 mg) by mouth daily in the morning. 30 Tablet 11 lisinopriL (PRINIVIL) 20 mg tablet Take 1 Tablet (20 mg) by mouth daily. 90 Tablet 3 apixaban (Eliquis) 5 mg tablet Take 5 mg by mouth every 12 hours. memantine (NAMENDA) 10 mg Tablet Take 10 mg by mouth 2 times daily. atorvastatin (LIPITOR) 80 mg tablet 80 mg. sertraline (ZOLOFT) 50 mg tablet Take 50 mg by mouth daily. tamsulosin (FLOMAX) 0.4 mg capsule Take 0.4 mg by mouth daily. cholecalciferol, vitamin D3, 1,000 unit Take 1,000 Units by mouth daily. Breztri Aerosphere 160 mcg-9mcg-4.8mcg/actuation HFA aerosol inhaler Take 2 Puffs by inhalation 2 times daily. traMADoL (ULTRAM) 50 mg tablet Take 50 mg by mouth 2 times daily. felodipine (PLENDIL) 10 mg Extended Release 24 hour tablet Take 5 mg by mouth daily at bedtime. omeprazole (PriLOSEC) 20 mg Capsule, Delayed Release(E.C.) metOLazone (ZAROXOLYN) 2.5 mg tablet Take 1 Tablet (2.5 mg) by mouth see administration instructions. As directed only by CHF team (Patient taking differently: Take 2.5 mg by mouth see administrationinstructions. Once weekly on Tuesday) 30 Tablet 0 No current facility-administered medications on file prior to visit. Review of Systems: Review of Systems Constitutional: Positive for fatigue. Negative for diaphoresis. Respiratory: Positive for shortness of breath. Negative for chest tightness. Cardiovascular: Positive for leg swelling. Negative for chest pain and palpitations. Gastrointestinal: Negative for blood in stool. Musculoskeletal: Negative for myalgias. Neurological: Negative for dizziness and light-headedness. All other systems reviewed and are negative. Physical Examination: BP (!) 92/52 Pulse 62 Ht 5' 11 (1.803 m) Wt 134.3 kg (296 lb) SpO2 99% BMI 41.28 kg/mÂ² Physical Exam Vitals reviewed. Constitutional: General: He is not in acute distress. Appearance: Normal appearance. He is well-developed. He is obese. HENT: Head: Normocephalic and atraumatic. Mouth/Throat: Mouth: Mucous membranes are moist. Eyes: Extraocular Movements: Extraocular movements intact. Conjunctiva/sclera: Conjunctivae normal. Cardiovascular: Rate and Rhythm: Bradycardia present. Rhythm irregularly irregular. Pulses: Carotid pulses are 2+ on the right side and 2+ on the left side. Radial pulses are 2+ on the right side and 2+ on the left side. Heart sounds: S1 normal and S2 normal. Murmur heard. Systolic murmur is present with a grade of 3/6. Pulmonary: Effort: Pulmonary effort is normal. Breath sounds: Normal breath sounds. Abdominal: General: Abdomen is flat. Palpations: Abdomen is soft. Comments: Obese Musculoskeletal: Cervical back: Normal range of motion. Right lower le+ Edema present. Left lower le+ Edema present. Comments: 1+ bilateral lower extremity edema, compression stockings, left leg brace, uses a walker Skin: General: Skin is warm and dry. Coloration: Skin is not jaundiced. Neurological: General: No focal deficit present. Mental Status: He is alert and oriented to person, place, and time. Mental status is at baseline. Psychiatric: Mood and Affect: Mood normal. Behavior: Behavior normal. Thought Content: Thought content normal. Judgment: Judgment normal. Laboratory/Testing Data: [facility] records personally reviewed: 04/11/19 2D Echo: SUMMARY: Limited visualization of endocardial borders; ultrasound contrast enhancement utilized. Normal LV size and systolic function; estimated LVEF 60-65%. Mildly enlarged RV with normal systolic function. Biatrial enlargement. Grade I diastolic dysfunction. Mild TR; mild pulmonary hypertension with estimated PA pressure of at least 50 mmHg (IVC not well visualized). No prior study for comparison. 06/18/19 30 day biomedical service engineer: Rhythm Summary: Afib longest duration: 03:00:32 Date Time of Afib longest episode: 04/27/2019 12:44:00 Afib shortest duration: 00:00:30 Date Time of Afib shortest episode: 04/26/2019 06:04:00 Peak avg Afib rate: 58 Bradycardia avg rate: 55 Bradycardia longest duration: 06:18:20 Bradycardia longest episode: 04/15/2019 00:00:00 Bradycardia shortest duration: 00:00:06 Bradycardia shortest episode: 04/25/2019 01:42:00 Mean heart rate: 61 Pauses >= 3 seconds: 0 Tachycardia avg rate: 105 Tachycardia longest duration: 00:03:20 Tachycardia longest episode: 04/22/2019 11:02:00 Tachycardia shortest duration: 00:00:19 Tachycardia shortest episode: 04/22/2019 16:30:00 Cardiologis Review of Transmissions: episodes of a fibh noted, also 3 runs of monomorphic VT of 4, 5 and 6 beats, I have reviewed the findings on the individual tracings for the dates noted below and I agree. 10/06/21 2D Echo: Conclusions: Normal left ventricular size. Definity contrast agent used to visually enhance endocardial wall motion and contractility. Lot Number: [id number]. Moderate concentric left ventricular hypertrophy. Impaired diastolic relaxation Grade I. Ejection fraction is measured at 65%. Normal appearance of the mitral valve. Aortic cusps appear mildly sclerotic. Moderate biatrial enlargement. 05/10/23 AMBULATORY SECURITY INSTALLATION TECHNICIAN REPORT Type of monitor : 48 hour Holter Date of the study/Enrollment period: 05/06/2023 Indication: Atrial fibrillation Quality of the study: Good Interpretation: The patient was monitored for 48 hours. The patient was in persistent atrial fibrillation throughout. The average heart rate was 61 beats per minute (range 37-113 beats per minute). Frequent PVCs were seen with a 4% burden. Thirty runs of nonsustained ventricular tachycardia were noted, the longest being for 9 beats with a rate of 103 beats per minute. One pause was noted, 2.0 seconds. No symptoms were recorded Conclusions: Persistent atrial fibrillation with a controlled heart rate Frequent PVCs Nonsustained ventricular tachycardia, the longest being a run of slow ventricular tachycardia for 9 beats at a rate of 103 beats per minute No significant pauses No symptoms recorded 06/23/23 Lexiscan: CONCLUSIONS: Nonspecific T wave abnormality Atrial fibrillation. No diagnostic ST changes. Global left ventricular function is normal. Left ventricular ejection fraction is 50 %. Myocardial perfusion imaging is normal. 02/24/2023 labs Medical record Care Everywhere: Creatinine 0.77 glucose 107 BUN 19 sodium 137 potassium 4.7 04/25/2024 echo: Left ventricle: The cavity size was moderately dilated. Wall thickness was increased in a pattern of mild LVH. Global systolic function is mildly reduced. The estimated ejection fraction is 45-50%. For Epic reporting: the left ventricular ejection fraction is 45% . The study is not technically sufficient to allow evaluation of LV diastolic function. - Aortic valve: Mild regurgitation. - Ascending aorta: The vessel is moderately dilated and 46.0mm diameter. - Mitral valve: The annulus is mildly to moderately calcified. The leaflets are mildly thickened. Mild regurgitation. - Left atrium: The atrium is severely dilated. - Right ventricle: The cavity size is normal. Systolic function is mildly reduced. - Right atrium: The atrium was severely dilated. - Tricuspid valve: Moderate regurgitation. - Pulmonic valve: Mild regurgitation. - Pulmonary arteries: The peak systolic pressure is 56mm Hg. Moderate pulmonary hypertension. 06/07/24 Holter: 08/20/24 Pacer check: 10/21/24 PPM check: Procedures I have personally reviewed and analyzed electronic medical record, pertinent imaging, laboratory studies, ECG, and available consultation notes. IMPRESSION: ICD-10-CM ICD-9-CM 1. Chronic heart failure with preserved ejection fraction ([facility]) I50.32 428.9 2. Longstanding persistent atrial fibrillation ([facility]) I48.11 427.31 3. Mixed hyperlipidemia E78.2 272.2 4. HAZEL on CPAP G47.33 327.23 5. Morbid obesity with BMI of 40.0-44.9, adult ([facility]) E66.01 278.01 Z68.41 V85.41 6. Chronic anticoagulation Z79.01 V58.61 7. S/P placement of cardiac pacemaker Z95.0 V45.01 8. H/O: CVA (cerebrovascular accident) Z86.73 V12.54 9. History of pulmonary embolism Z86.711 V12.55 10. Iron deficiency anemia, unspecified iron deficiency anemia type D50.9 280.9 ASSESSMENT/PLAN OF CARE: Persistent, A. Fib with slow ventricular response, significant bradycardia prompting prior discontinuation of Toprol XL. Patient learned of diagnosis December 2020 yet review of biomedical service engineer 06/2019indicated intermittent episodes of atrial fibrillation. Continue current medical therapy and systemic anticoagulation for stroke risk reduction. CHADS2 Vasc score 4. -h/o slow heart rate response on low-dose beta-mackenzie suggestive underlying conduction system disease now off therapy. 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 Norecommendation for ASA, changed to Eliquis post CVA. -Pacemaker implantation had resulted in significant improvement in his fatigue again reports. -discussed at great length. He would like to restore SR if possible and to observe how he feels. Discussed at length we may not be successful in restoring sinus rhythm either way given duration elevated. And/or he may not feel much better if sinus rhythm restored. Discussed options at length including BB and Amiodarone but discussed concerns re his lungs and side effects. May need to utilize at least short term to observe effectiveness and how he feels if we are able to achieve SR. -will plan for CV if persistent AF recs to follow. They agree. We may also decide to initiate amiodarone load prior to cardioversion if they would like to observe tolerance of beta-mackenzie the next 1to 2 weeks prior to proceeding. BP relatively low, goal <140/90mmHg. Monitor BP on routine basis. Call with readings. Continue consistent cardiovascular exercise, weight loss, medication compliance, and low-sodium diet. -Continue Felodipine 5 mg daily and Lisinopril 20mg daily. Chronic compensated CHF previously HFpEF, EF 60-65% but now EF declined 45 to 50%, 48% on Lexiscan.NYHA class III sxs confounded by underlying COPD. CHF counseling performed. Follow daily weight, less than 2 g daily sodium intake, medication compliance. Call w/ wt gain >3lb in 24 hrs or worsening edema and/or SIFUENTES. -Weight is down per our scale 296lbs but is still SOB possible ongoing volume overload but cannot exclude URI/pneumonia. Will repeat CXR. -continue Bumex 2mg BID with KCl 40MEQ daily -SIFUENTES confounded by COPD, CHF, AFib, deconditioning and pain. -Patient has new cardiomyopathy EF 45 to 50% otherwise unexplained by Echo but EF 48% on Lexiscan 05/30/24. -repeat Echo this week as scheduled, recs to follow after review. Discussed concerns if EF reduced further due to RV pacing 80% possible not likely and SALVAGE ENGINEER upgrade may be required. -Continue Jardiance 10 mg daily, Lisinopril 20 mg daily, continue felodipine 5 mg daily with plans to ultimately reduce as BP permits may shabnam to hold if BP too lowe as counseled. -recheck BMP now. -continue Toprol XL 25mg daily. Observe tolerance -sig anemia Hgb 8.2 contributing. Recheck BMP and CBC., recs to follow. Pulmonary hypertension history of moderate elevation 2018 echocardiogram unchanged overall RVSP 52mmHg most ikely multifactorial due to COPD, HAZEL, obesity. No sig valve issues. -moderate left atrial enlargement by echo 05/2022 EF 60 65% RVSP 44 mmHg moderate pulmonary hypertension. Compliance with CPAP for HAZEL tx. Doing well in this regard. Lipids personally reviewed 07/06/24 LDL 30, very well controlled with goal LDL<100. Continue Atorvastatin 80mg qhs and lifestyle modification. Continue routine lipid monitoring. Need to repeat fasting lipid profile. Review records from PCP. Routine pacemaker interrogation. 80.9% ventricular paced rhythm persistent atrial fibrillation. Normal device function. Discussed at length. Follow up in the office in [place] in about 4 weeks (around 12/17/2024). or sooner as needed. Thank you for allowing me the privilege of participating in the care this very pleasant patient. Please do not hesitate to contact me with any additional questions or concerns. This note is dictated and transcribed using [employer] Software. Vacuum Extractor Operator variancesmay occur. Despite proofreading, typographical errors may occur. Anup Leonardo MD documented in this encounter Miscellaneous Notes * Patient Instructions - Anup Leonardo MD - 11/19/2024 10:15 AM CDT Your heart health is important to us. As always, we encourage a heart healthy lifestyle with good sleep routines, healthy eating and cooking with smart food choices, regular daily exercise and avoiding tobacco products. For more information about cardiac health topics and healthy living, go to www.heart.org. Your mental and spiritual well being are also extremely important to us. Roxy schrader can offer additional support services available through our Chaplains. If you would be interested in this service, please let us know and they will be glad to contact you. We strive for excellence in everything we do and Excellent ratings in overall care. You may receivea survey from [facility] in follow up asking your opinion. Our goal is to be rated Excellent! Thanks foryour support especially during these unsettling times. We appreciate your prayers for health care workers. If further testing has been recommended, please call [facility] Referral Scheduling at [phone] or to arrange testing appointments. Stay connected with us through [employer] at [email or web address]. Congestive Heart Failure Information: Heart failure with preserved ejection fraction, HFpEF, is one type of heart failure. If you have HFpEF: Your heart's pumping ability is normal, or what is called preserved. Ejection fraction is a measure of how much blood the heart pumps out with each beat. But the muscle is stiff and can't relax to fill with enough blood. As a result, less blood full of oxygen and nutrients is pumped out to your body. With HFpEF, the pressure inside the heart also increases. This can make you feel short of breath and can push fluid into places it shouldn't be (for example, your lungs, belly, or legs). The good news is that heart failure can be managed - and there are now more treatments for HFpEF than ever before. Proper treatment can help you feel better and live longer. Heart failure is a chronic disease that sometimes worsens. But you can take steps to help control how you feel. Get tips and tools to manage living with heart failure. Find more resources here: https://www.cardiosmart.org/topics/heart-failure Heart Failure Instructions : Weigh yourself daily. Weigh yourself in the morning after using the bathroom and before breakfast. Write it down and keep a daily log of your weight. Contact your physician if you experience: Weight gain of 3 pounds or more in 24-48 hours or 5 pounds or more in one week Swelling in hands, abdomen, face or feet Unable to lay flat because of shortness of breath Increase in shortness of breath with activity or with lying down Follow a low salt diet (less than 2,000 mg daily). Do not add any salt to your food. Take your medications as instructed Try to stay active. Rest when tired. If you are a SMOKER or use TOBACCO products, you are advised to QUIT! documented in this encounter Plan of Treatment Upcoming Encounters Date Type Department Care Team ([place] st Contact Info) Description 12/17/2024 10:15 AM CDT Office Visit [facility] Heart and Vascular [address] [place] [address] Anup Leonardo MD [address] [place] [address] 01/28/2025 9:00 AM CDT Procedure visit [facility] Heart and Vascular - [address] [place] [address] Scheduled Orders Name Type Priority Associated Diagnoses Orde r Schedule XR CHEST PA AND LATERAL 2 VW Imaging Routine Chronic heart failure with preserved ejection fraction (CMS/HCC) Expected: 11/19/2024, Expires: 11/19/2025 CBC WITH DIFFERENTIAL Lab Routine Iron deficiency anemia, unspecified iron deficiency anemia type Expected: 11/19/2024, Expires: 11/19/2025 BASIC METABOLIC PANEL Lab Routine Chronic heart failure with preserved ejection fraction (CMS/HCC) Iron deficiency anemia, unspecified iron deficiency anemia type Expected: 11/19/2024, Expires: 11/19/2025 documented as of this encounter Visit Diagnoses Diagnosis Chronic heart failure with preserved ejection fraction (CMS/HCC)- Primary Longstanding persistent atrial fibrillation (CMS/HCC) Mixed hyperlipidemia HAZEL on CPAP Obstructive sleep apnea (adult) (pediatric) Morbid obesity with BMI of 40.0-44.9, adult (CMS/HCC) Chronic anticoagulation Encounter for long-term (current) use of anticoagulants S/P placement of cardiac pacemaker Cardiac pacemaker in situ H/O: CVA (cerebrovascular accident) History of pulmonary embolism Personal history of pulmonary embolism Iron deficiency anemia, unspecified iron deficiency anemia type documented in this encounter Care Teams Rug Weaver Relationship Specialty Start Date End Date Jh Griffin DO [address] [facility] [address] [place] [address] PCP - General Internal Medicine 07/10/24 documented as of this encounter
[2024-11-19 14:55] LABS: Basophils Percent Auto 0.3 % (0.2-1.2); Eosinophils Absolute Auto 0.3 K/mm3 (0-0.3); Eosinophils Percent Auto 3.8 % (0-4.4); Hematocrit 33.3 % (42.0-52.0); Hemoglobin 8.9 g/dL (14.0-18.0); Immature Granulocyte Absolute 0.03 K/mm3 (0.00-0.031); Immature Granulocyte Percent A 0.4 % (0-0.5); Immature Platelet Fraction Pct 1.6 % (0.9-11.2); Lymphocytes Absolute Auto 0.77 K/mm3 (0.9-3.2); Lymphocytes Percent Auto 10.4 % (18.3-44.2); Mean Corpuscular HGB Conc 26.7 g/dl (32-36); Mean Corpuscular Hemoglobin 17.1 pg (26-34); Mean Platelet Volume 8.7 fl (7.4-10.4); Monocytes Absolute Auto 0.6 K/mm3 (0.1-0.6); Monocytes Percent Auto 8.1 % (2.6-8.5); Neutrophils Absolute Auto 5.7 K/mm3 (1.3-6.7); Platelet Count Result 290 k/mm3 (150-375); Red Cell Distribution Width 28.4 % (11.5-14.5); White Blood Count 7.4 K/mm3 (4.5-10.0)
[2024-11-19 15:45] LABS: Anion Gap 11 mmol/L (4-12); Blood Urea Nitrogen 37 mg/dL (9-20); Calcium 8.8 mg/dL (8.4-10.2); Carbon Dioxide 31 mmol/L (22-30); Chloride 96 mmol/L (98-107); Estimated Glomerular Filt Rate > 60; Glucose 136 mg/dL (65-110); Potassium 3.8 mmol/L (3.4-5.0); Sodium 138 mmol/L (137-145)
[2024-11-19 16:12] LABS: Platelet Estimate Adequate (Adequate)
[2024-11-19 16:13] LABS: Schistocytes Rare
[2024-11-19 16:15] LABS: Anisocytosis 3+; Hypochromasia 1+; Microcytosis 1+ (NORMAL)
[2024-11-19 16:16] LABS: Band Neutrophils Percent 0 % (0-6)
== END 2024-11-19 14:17 | disposition home or self-care (01) ==
PROVIDERS: PCP Internal Medicine; Visit Provider Internal Medicine Cardiovascular Disease
DX: I50.32 Chronic diastolic (congestive) heart failure (principal); D50.9 Iron deficiency anemia, unspecified
CPT/HCPCS: 36415; 71046; 80048; 85025; 85055

== ENCOUNTER 2024-11-22 14:11 | Outpatient (CLI) | payer MEDICARE, SELFPAY ==
--- OUTSIDE RECORDS SUMMARY | 2024-11-22 14:14 | XMS_ITS | Encounter Summary ---
Author Organization [facility] Address [address] [place] [address] Care Team Providers Care Voice And Data Technician Name Role Phone Jh Griffin DO Primary Care Provider [phone] Encounter Details Date Type Department Care Team (Late st Contact Info) Description 11/21/2024 External Device Data [facility] ABSTRACTION Provider, Abstract NO ADDRESS ON FILE Social History Tobacco Use Types Packs/Day Years Used Date Smoking Tobacco: Former Cigarettes Q uit: 1994 Alcohol Use Standard Drinks/Week Comments Never 0 [...] on file documented as of this encounter Plan of Treatment Upcoming Encounters Date Type Department Care Team (Late st Contact Info) Description 12/17/2024 10:15 AM CDT Office Visit [facility] Heart and Vascular [address] [place] [address] Anup Leonardo MD [address] [place] [address] 01/28/2025 9:00 AM CDT Procedure visit [facility] Heart and Vascular - [address] [place] [address] documented as of this encounter Visit Diagnoses Not on filedocumented in this encounter Care Teams Voice And Data Technician Relationship Specialty Start Date End Date Jh Griffin DO [address] [facility] [address] [place] [address] PCP - General Internal Medicine 07/10/24 documented as of this encounter
--- OUTSIDE RECORDS SUMMARY | 2024-11-22 14:14 | XMS_ITS | Encounter Summary ---
Author Organization [facility] Address [address] [place] [address] Care Team Providers Care Night Manager Name Role Phone Jh Griffin DO Primary Care Provider [phone] Reason for Visit * Reason Onset Date Comments Results 11/21/2024 lab Encounter Details Date Type Department Care Team (Late st Contact Info) Description 11/21/2024 Results Follow-Up [facility] Heart and Vascular - [address] [place] [address] Anup Leonardo MD [address] [place] [address] BASIC METABOLIC PANEL, CBC WITH DIFFERENTIAL Social History Tobacco Use Types Packs/Day Years [...] on file documented as of this encounter Miscellaneous Notes * Telephone Encounter - Carline Granda LPN - 11/22/2024 12:47 PM CDT Sidra notified of results. She reports he had CXR at [facility] on 11/19, they are faxing results * Telephone Encounter - Carline Granda LPN - 11/22/2024 11:11 AM CDT No voicemail for both phones are set up, unable to LM. Copy sent to PCP * Telephone Encounter - Carline Granda LPN - 11/22/2024 11:09 AM CDT ----- Message from Dr. Anup Leonrado sent at 11/21/2024 5:17 PM CDT ----- He is a bit more anemic with a hemoglobin of 8.8. Continue with further anemia workup and management. documented in this encounter Plan of Treatment Upcoming Encounters Date Type Department Care Team (Late st Contact Info) Description 12/17/2024 10:15 AM CDT Office Visit [facility] Heart and Vascular [address] [place] [address] Anup Leonardo MD [address] [place] [address] 01/28/2025 9:00 AM CDT Procedure visit [facility] Heart and Vascular - [address] [place] [address] documented as of this encounter Procedures Procedure Name Priority Date/Time Associated Diagnosis Comments XR CHEST PA AND LATERAL 2 VW Routine 11/19/2024 Chronic heart failure with preserved ejection fraction (CMS/HCC) documented in this encounter Results * XR CHEST PA AND LATERAL 2 VW (11/19/2024) Anatomical Region Laterality Modality Chest Other Anup Leonardo MD DIAGNOSTIC IMAGING ORDER THOMAS Final Result documented in this encounter Visit Diagnoses Diagnosis Chronic heart failure with preserved ejection fraction (CMS/HCC) documented in this encounter Care Teams Night Manager Relationship Specialty Start Date End Date Jh Griffin DO [address] [facility] [address] [place] [address] PCP - General Internal Medicine 07/10/24 documented as of this encounter
--- OUTSIDE RECORDS SUMMARY | 2024-11-22 14:14 | XMS_ITS | Referral Summary ---
Author Organization [facility] [address] Address [address] [place] [address] Care Team Providers Care Sanding Machine Operator Name Role Phone Anton Raines MD Primary Care Provider [phone] Encounters Date Type Department Care Team Description 11/19/2024 Orders Only [facility] Health Information Management [address] [place] [address] Anup Leonardo MD from Last 3 Months Allergies Active Allergy Reactions Criticality Noted Date [...] daily Active calcium carb/D3/magnesi um/zinc (calcium carb-D3-mag [id number]) [phone] ld-hvri-la-mg tablet Take by mouth Active potassium chloride [...] file Legal Sex 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: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 Gender Identity Not on file Sexual Orientation Not on file Last Filed Vital Signs Vital Sign Reading Time Taken Comments Blood Pressure 128/58 07/08/2023 2:12 PM SENIOR PRODUCT DEVELOPMENT SCIENTIST Pulse 79 07/08/2023 2:12 PM SENIOR PRODUCT DEVELOPMENT SCIENTIST Temperature 36.6 C (97.9 F) 04/11/2019 7:43 AM CDT Respiratory Rate 18 12/11/2021 9:18 AM CDT Oxygen Saturation 92% 07/08/2023 2:12 PM SENIOR PRODUCT DEVELOPMENT SCIENTIST Inhaled Oxygen Concentration - - Weight 132.4 kg (291 lb 14.4 oz) 07/08/2023 2:12 PM SENIOR PRODUCT DEVELOPMENT SCIENTIST Height 180.3 cm (5' 11 ) 07/08/2023 2:12 PM SENIOR PRODUCT DEVELOPMENT SCIENTIST Body Mass Index 40.71 07/08/2023 2:12 PM SENIOR PRODUCT DEVELOPMENT SCIENTIST Plan of Treatment Not on file Goals [...] needed Reduce the likelihood of falling Lifestyle Amie Ness, RN Note: Below are four things you [...] on stairs Contact your local community or [facility] for information on exercise, fall prevention programs, or options for improving home safety. Procedures Procedure Name Priority Date/Time Associated Diagnosis Comments SCAN - RADIOLOGY/IMAGING 11/19/2024 from Last 3 Months Results * SCAN - RADIOLOGY/IMAGING (11/19/2024) Anatomical Region Laterality Modality Other Anup Leonardo MD Final Re sult from Last 3 Months Insurance MEDICARE [facility] MEDICARE [facility] MEDICARE [facility] Advance Directives For more information, please contact: [phone] * Full Code (Latest Code Status on File) Date Activated Date Inactivated Comments 04/10/2019 10:36 PM 04/11/2019 11:38 PM Care Teams Sanding Machine Operator Relationship Specialty Start Date End Date Anton Raines MD [address] [facility] [address] [place] [address] PCP - General Internal Medicine 04/12/19
--- OUTSIDE RECORDS SUMMARY | 2024-11-22 14:14 | XMS_ITS | Encounter Summary ---
Author Organization [facility] Address [address] [place] [address] Care Team Providers Care Scow Hand Name Role Phone Jh Griffin DO Primary Care Provider [phone] Encounter Details Date Type Department Care Team (Late st Contact Info) Description 11/22/2024 External Device Data STL ABSTRACTION Provider, Abstract [...] 10:15 AM CDT Office Visit [facility] Heart and Vascular [address] [place] [address] Anup Leonardo MD [address] [place] [address] 01/28/2025 9:00 AM CDT Procedure visit [facility] Heart and Vascular - [address] [place] [address] documented as of this encounter Visit Diagnoses Not on filedocumented in this encounter Care Teams Scow Hand Relationship Specialty Start Date End Date Jh Griffin DO [address] [facility] [address] [place] [address] PCP - General Internal Medicine 07/10/24 documented as of this encounter
--- OUTSIDE RECORDS SUMMARY | 2024-11-22 14:14 | XMS_ITS | Encounter Summary ---
Author Organization [facility] Address [address] [place] [address] Care Team Providers Care Head Shipper Name Role Phone Jh Griffin DO Primary Care Provider [phone] Encounter Details Date Type Department Care Team (Late Contact Info) Description 11/20/2024 Orders Only [facility] Heart and Vascular - [address] [place] [address] Carline Granda LPN [address] [place] [address] Chronic heart failure with preserved ejection fraction (CMS/HCC); Iron deficiency anemia, unspecified iron deficiency anemia [...] Description 12/17/2024 10:15 AM CDT Office Visit [facility] Heart and Vascular [address] [place] [address] Anup Leonardo MD [address] [place] [address] 01/28/2025 9:00 AM CDT Procedure visit [facility] Heart and Vascular - [address] [place] [address] documented as of this encounter Procedures Procedure Name Priority Date/Time Associated Diagnosis Comments CBC WITH DIFFERENTIAL Routine 11/20/2024 12:41 PM CDT Iron deficiency anemia, unspecified iron deficiency anemia type BASIC METABOLIC PANEL Routine 11/20/2024 12:41 PM CDT Chronic heart failure with preserved ejection fraction (CMS/HCC) Iron deficiency anemia, unspecified iron deficiency anemia type documented in this encounter Results * CBC WITH DIFFERENTIAL (11/20/2024 12:41 PM CDT) Blood 11/20/2024 12:4 1 PM CDT Anup Leonardo MD HEMATOLOGY ORDERABLES Fi nal Result Performing Organization Address [facility] Co de Phone Number NON [email or web address] * BASIC METABOLIC PANEL (11/20/2024 12:41 PM CDT) Blood 11/20/2024 12:4 1 PM CDT Anup Leonardo MD CHEMISTRY ORDERABLES Fin al Result NON [facility] documented in this encounter Visit Diagnoses Diagnosis Chronic heart failure with preserved ejection fraction (CMS/HCC) Iron deficiency anemia, unspecified iron deficiency anemia type documented in this encounter Care Teams Head Shipper Relationship Specialty Start Date End Date Jh Griffin DO [address] [facility] [address] [place] [address] PCP - General Internal Medicine 07/10/24 documented as of this encounter
--- OUTSIDE RECORDS SUMMARY | 2024-11-22 14:14 | XMS_ITS | Clinical Summary ---
Author Organization [facility] [address] Address [address] [place] [address] Care Team Providers Care Data Support Specialist Name Role Phone Anton Raines MD Primary Care Provider [phone] Allergies Active Allergy Reactions Criticality Noted Date [...] daily Active calcium carb/D3/magnesi um/zinc (calcium carb-D3-mag rhl60-[id number]) [phone] zq-sztz-il-mg tablet Take by mouth Active potassium chloride [...] obesity with BMI of 40.0-44.9, adult 02/2019 Encounters Date Type Department Care Team Description 11/19/2024 Orders Only [facility] Health Information Management [address] [place] [address] Anup Leonardo MD from Last 3 Months Immunizations Immunization Administration Dates Next Due Influenza, [...] on file Legal Sex Male 4:38 AM PULPER TENDER Gender Identity Not on file Sexual Orientation Not on file Obstetrics History Last Filed Vital Signs Vital Sign Reading Time Taken Comments Blood Pressure 128/58 07/08/2023 2:12 PM PULPER TENDER Pulse 79 07/08/2023 2:12 PM PULPER TENDER Temperature 36.6 C (97.9 F) 04/11/2019 7:43 AM CDT Respiratory Rate 18 12/11/2021 9:18 AM CDT Oxygen Saturation 92% 07/08/2023 2:12 PM PULPER TENDER Inhaled Oxygen Concentration - - Weight 132.4 kg (291 lb 14.4 oz) 07/08/2023 2:12 PM PULPER TENDER Height 180.3 cm (5' 11 ) 07/08/2023 2:12 PM PULPER TENDER Body Mass Index 40.71 07/08/2023 2:12 PM PULPER TENDER Plan of Treatment Health Maintenance Due Date [...] Vaccine (2 - season) 03/04/202402/2021 Influenza Vaccine (Season Ended) 2025 04/10/20 19 Goals Goal Patient Goal Type Associated Problems [...] on stairs Contact your local community or [facility] for information on exercise, fall prevention programs, or options for improving home safety. Procedures Procedure Name Priority Date/Time Associated Diagnosis Comments SCAN - RADIOLOGY/IMAGING 11/19/2024 from Last 3 Months Results * SCAN - RADIOLOGY/IMAGING (11/19/2024) Anatomical Region Laterality Modality Other Anup Leonardo MD Final Re sult from Last 3 Months Insurance MEDICARE [facility] Advance Directives For more information, please contact: [phone] * Full Code (Latest Code Status on File) Date Activated Date Inactivated Comments 04/10/2019 10:36 PM 04/11/2019 11:38 PM Care Teams Data Support Specialist Relationship Specialty Start Date End Date Anton Raines MD [address] [facility] [address] [place] [address] PCP - General Internal Medicine 04/12/19
--- OUTSIDE RECORDS SUMMARY | 2024-11-22 14:14 | XMS_ITS | Encounter Summary ---
Author Organization [facility] Address [address] [place] [address] Care Team Providers Care Saw Filer Name Role Phone Jh Griffin DO Primary Care Provider [phone] Encounter Details Date Type Department Care Team (Late st Contact Info) Description 11/20/2024 External Device Data STL ABSTRACTION Provider, Abstract [...] Description 12/17/2024 10:15 AM CDT Office Visit [facility] Heart and Vascular [address] [place] [address] Anup Leonardo MD [address] [place] [address] 01/28/2025 9:00 AM CDT Procedure visit [facility] Heart and Vascular - [address] [place] [address] documented as of this encounter Visit Diagnoses Not on filedocumented in this encounter Care Teams Saw Filer Relationship Specialty Start Date End Date Jh Griffin DO [address] [facility] [address] [place] [address] PCP - General Internal Medicine 07/10/24 documented as of this encounter
--- OUTSIDE RECORDS SUMMARY | 2024-11-22 14:14 | XMS_ITS | Encounter Summary ---
Author Organization [facility] Address [address] [place] [address] Care Team Providers Care Pay Per Click Strategist Name Role Phone Anton Raines MD Primary Care Provider [phone] Encounter Details Date Type Department Care Team (Late st Contact Info) Description 11/19/2024 Orders Only [facility] Health Information Management [address] [place] [address] Anup Leonardo MD [address] [facility] [address] [place] [address] Social History Tobacco Use Types Packs/Day Years Used Date Smoking Tobacco: Never Alcohol Use Standard Drinks/Week Comments No 0 (1 standard drink = 0.6 oz pur e alcohol) PHQ-2 Answer Date Recorded PHQ-2 Score 0 04/10/2019 Personal Safety Answer Date Recorded Getting School Help Needed Not on file 06/15 Sex and Gender Information Value Date Recorded Sex Assigned at Not on file Legal Sex Male 4:38 AM OVERSEAMER Gender Identity Not on file Sexual Orientation Not on file documented as of this encounter Plan of Treatment Not on file documented as of this encounter Goals Goal Patient Goal Type Associated Problems [...] Reduce the likelihood of falling Lifestyle No Jayleen Amie, RN Note: Below are four things you [...] on stairs Contact your local community or [facility] for information on exercise, fall prevention programs, or options for improving home safety. documented as of this encounter Procedures Procedure Name Priority Date/Time Associated Diagnosis Comments SCAN - RADIOLOGY/IMAGING 11/19/2024 documented in this encounter Results * SCAN - RADIOLOGY/IMAGING (11/19/2024) Anatomical Region Laterality Modality Other Anup Leonardo MD Final Re sult documented in this encounter Visit Diagnoses Not on filedocumented in this encounter Care Teams Pay Per Click Strategist Relationship Specialty Start Date End Date Anton Raines MD [address] [facility] [address] [place], [place] [phone] PCP - General Internal Medicine 04/12/19 documented as of this encounter
--- OUTSIDE RECORDS SUMMARY | 2024-11-22 14:14 | XMS_ITS | Patient Health Record ---
Author Organization [facility] Address [address] [facility] [address] [place] [address] Care Team Providers Care Heater Mechanic Name Role Phone Jh Griffin DO Primary Care Provider UnavailJesus Curtis Unavailable [phone] Allergies Allergen (clinical drug ingredient) Drug/Non Drug [...] Breztri Aerosphere 160-9-4.8 MCG/ACT Inhalation *Reorder from [employer] for eRx and Interaction Alerts* 08/22/2023 Active [...] Risk Notes Problem Moderate recurrent major depression (93062754) Major depressive disorder, recurrent, moderate (F33.1) 08/22/2023 Active confirmed Problem Mild cognitive disorder (836095204) Mild cognitive impairment, so stated (G31.84) 08/22/2023 [...] N/A Encounters Encounter Location Date Provider Diagnosis [employer] [facility] [address] 02/20/2024 Jesus Joseph Mild cognitive impairment, so stated G31.84 and Major depressive disorder, recurrent, moderate F33.1 [employer] [facility] [address] [facility] [address] [place] [address] 08/24/2024 Jesus Joseph Mild cognitive impairment, so stated G31.84 and Major depressive disorder, recurrent, moderate F33.1 [employer] [address] [facility] [address] [place] [address] 10/18/2024 Jesus Joseph Mild cognitive impairment, so stated G31.84 [facility] [employer] [facility] [place] [id number] [facility] [address] [place] [address] 11/15/2024 Jesus Joseph Mild cognitive impairment, so stated G31.84 ; Major depressive disorder, recurrent, moderate F33.1 ; Encounter for screening for depression Z13.31 and Encounter for screening for cardiovascular disorders Z13.6 [facility] [address] [facility] [address] [place] [address] 04/20/2024 Jesus Ruiz Mild cognitive impairment, so stated G31.84 Assessments Encounter Date Diagnosis (ICD Code) Assessment Notes Treatment Notes Treatment Clinical Notes Section Notes 04/20/2024 Mild cognitive impairment, so stated (ICD-10 - G31.84) 11/15/2024 Mild cognitive impairment, so stated (ICD-10 [...] Tasks Completed: 6 cognitive domains 1. SLUMS ([facility] Mental Status Exam) Total Score: 22 For [...] Verbal span training using free apps like [employer] or [employer]. 11/15/2024 Major depressive disorder, recurrent, moderate (ICD-10 - F33.1) 02/20/2024 Major depressive disorder, recurrent, moderate (ICD-10 [...] Dr. Zavala's correct contact information is obtained. 11/15/2024 Encounter for screening for depression (ICD-10 - Z13.31) 08/24/2024 Major depressive disorder, recurrent, moderate (ICD-10 - F33.1) 11/15/2024 Encounter for screening for cardiovascular disorders (ICD-10 - Z13.6) 08/24/2024 Other Pacemaker Insertion - Plan: - Continue to monitor the patient's progress. - Follow up with a target network analyst as needed. Depression - Plan: - Continue [...] memantine 10 mg twice a day to [facility] pharmacy. Lifestyle - Plan: - Encourage the patient to maintain a healthy lifestyle. - Encourage engagement in activities that promote mental and physical well-being. 11/15/2024 Other referral to the local [facility] or national office of the Alzheimer's Association (3-855-090-39 00; http://www.al z.org), the Alzheimer's Disease Education and Referral Center (ADEND) (8-638-978-43 80; http://www. a.nih.gov/Alz karyna/), referral to the [facility] or national office of the Alzheimer's Association (7-238-168-39 00; http://www.al z.org), the Alzheimer's Disease Education and Referral Center (ADEND) (6-854-709-43 80; http://www.[employer] a.nih.gov/Alz karyna/), Katlyn Kumar, an elderly male patient with congestive heart failure, presented with fluid retention and cognitive changes following recent diuretic therapy. Congestive Heart Failure with Fluid Retention Assessment: Patient recently hospitalized at [facility] on Tuesday for significant fluid retention affecting [...] on Tuesday morning - Follow up with target network analyst on Tuesday - Monitor for further fluid [...] ensure accuracy, there may be errors, including director mortgage inaccuracies and misspellings of medication names. This document should not be considered a verbatim record, and any discrepancies should be verified with the provider. Plan Of Treatment Next Appt Details Provider Name:Jesus Ruiz , 05/16/2025 10:30:00 AM, [address] [facility] [address] [facility] [address], [place], [address], Insurance Providers Payer Name Payer Address Payer Phone Subscriber Number Group Number Insured Name Patient Relationship to Insured Coverage Start Date Coverage End Date Medicare-I l Medicare [address] [place] [address] [id number] KATLYN KUMAR Self - [facility] [address] [place] [address] [id number] KATLYN KUMAR Self - patient is the [...]
--- OUTSIDE RECORDS SUMMARY | 2024-11-22 14:15 | XMS_ITS | Clinical Summary ---
Author Organization [facility] Address [address] [place] [address] Care Team Providers Care Datawarehouse Developer Name Role Phone Jh Griffin DO Primary Care Provider [phone] Allergies Active Allergy Reactions Criticality Noted Date [...] migh t be different from the original. Scientific Programmer Dr. Malissa [place] Problem Noted Date Diagnosed Date S/P placement of cardiac pacemaker 07/18/2024 Overview (07/18/2024): S/p1 Medtronic dual chamber PPM implant Pulmonary hypertension [...] Encounters Date Type Department Care Team Description 11/22/2024 External Device Data [facility] ABSTRACTION Provider, Abstract 11/21/2024 Results Follow-Up [facility] [address] [place] [address] Anup Leonardo MD BASIC METABOLIC PANEL, CBC WITH DIFFERENTIAL 11/21/2024 External Device Data [facility] ABSTRACTION Provider, Abstract 11/20/2024 External Device Data [facility] ABSTRACTION Provider, Abstract 11/20/2024 Orders Only [facility] - [address] [place] [address] Carline Granda LPN Chronic heart failure with preserved ejection fraction (CMS/HCC); Iron deficiency anemia, unspecified iron deficiency anemia type 11/19/2024 10:00 AM CDT Office Visit [facility] [address] [place] [address] Anup Leonardo MD Chronic heart failure with preserved ejection fraction (CMS/HCC) (Primary Dx); Longstanding persistent atrial fibrillation (CMS/HCC); Mixed hyperlipidemia; HAZEL on CPAP; Morbid obesity with BMI of 40.0-44.9, adult (CMS/HCC); Chronic anticoagulation; S/P placement of cardiac pacemaker; H/O: CVA (cerebrovascular accident); History of pulmonary embolism; Iron deficiency anemia, unspecified iron deficiency anemia type 11/14/2024 9:00 AM CDT Clinical Support [facility] - [address] [place] [address] Acute systolic congestive heart failure (CMS/HCC) (Primary Dx) 11/14/2024 9:00 AM CDT Office Visit [facility] - [address] [place] [address] Madhavi Wade APRN-JUDY Acute systolic congestive heart failure (CMS/HCC) (Primary Dx); Longstanding persistent atrial fibrillation (CMS/HCC); S/P placement of cardiac pacemaker; Pulmonary hypertension (CMS/HCC) 11/12/2024 1:00 PM CDT Clinical Support [facility] - [address] [place] [address] Chronic heart failure with preserved ejection fraction (CMS/HCC) (Primary Dx) 11/12/2024 1:00 PM CDT Office Visit [facility] - [address] [place] [address] Madhavi Wade APRN-JUDY Acute systolic congestive heart failure (CMS/HCC) (Primary Dx); S/P placement of cardiac pacemaker; Longstanding persistent atrial fibrillation (CMS/HCC); Chronic anticoagulation; H/O: CVA (cerebrovascular accident); Pulmonary hypertension (CMS/HCC) 11/12/2024 Telephone [facility] - [address] [place] [address] Anup Leonardo MD Question 10/22/2024 3:00 PM CDT Procedure visit [facility] - [address] [place] [address] Cardiac pacemaker in situ (Primary Dx); Longstanding persistent atrial fibrillation (CMS/HCC); Bradycardia 10/02/2024 External Device Data ST[facility] ABSTRACTION Provider, Abstract 09/24/2024 10:30 AM CDT Office Visit [facility] [address] [place] [phone] Anup Leonardo MD Longstanding persistent atrial fibrillation [...] 36.4 C (97.6 F) 07/18/2024 7:30 AM PULL WORKER Respiratory Rate 20 11/14/2024 9:51 AM CDT [...] and Vascular [address] [place] [address] Anup Leonardo MD [address] [place] [address] 01/28/2025 9:00 AM CDT Procedure visit [facility] - [address] [place] [address] Health Maintenance Due Date Last [...] 50+ YEARS (2 of 2 - PCV) 04/11/20 20 04/11/2019 INFLUENZA VACCINE (#1) 2024 04/10/2019 Medical Devices Implanted Type Area Hand Pattern Marker Device Identifier Shelf Expiration Date Model / Serial / Lot Lead Pacing Capsure Fix Novus 45cm [id number] - [facility] - [id number] Implanted:Qty: 1 on 07/18/2024 by Ernesto Oneal MD at [facility] Lead Right: Heart [employer]- CRM - BULK BUY [id number] 05/17/2026 5076-45 / [id number] / Lead Capsurefix Novus Mri 52cm Endocardial Pacing 5076-52 - [id number] Implanted:Qty: 1 on 07/18/2024 by Ernesto Oneal MD at [facility] Lead Right: Heart [employer] - BULK [employer] [id number] 04/26/2026 5076-52 / [id number] 9V / Pacemaker [place] Xt Dr Mri Ipg Dual Chmbr Surescan [id number] - [id number] Implanted:Qty: 1 on 07/18/2024 by Ernesto Oneal MD at [facility] Pacemaker Left: Chest [employer]- CRM - BULK BUY [id number] 11/28/2025 [id number] / [id number] / Procedures Procedure Name Priority Date/Time Associated Diagnosis Comments CBC WITH DIFFERENTIAL Routine 11/20/2024 12:41 PM CDT Iron deficiency anemia, unspecified iron deficiency anemia type BASIC METABOLIC PANEL Routine 11/20/2024 12:41 PM CDT Chronic heart failure with preserved ejection fraction (CMS/HCC) Iron deficiency anemia, unspecified iron deficiency anemia type XR CHEST PA AND LATERAL 2 VW Routine 11/19/2024 Chronic heart failure with preserved ejection fraction (CMS/HCC) POC ELECTROLYTES/BMP Routine 11/14/2024 9:42 AM CDT Acute systolic congestive heart failure (CMS/HCC) POC ELECTROLYTES/BMP Routine 11/12/2024 1:50 PM CDT Chronic heart failure with preserved ejection fraction (CMS/HCC) IA REM INTERROG PM/LDLS PM/IDS <90 D TECH REVIEW Routine 10/21/2024 9:02 PM CDT Cardiac pacemaker in situ Longstanding persistent atrial fibrillation (CMS/HCC) Bradycardia IA REM INTERROG PM/LDLS PM <90 D PHYS/QHP Routine 10/21/2024 9:02 PM CDT Cardiac pacemaker in situ Longstanding persistent atrial fibrillation (CMS/HCC) Bradycardia from Last 3 Months Results * CBC WITH DIFFERENTIAL (11/20/2024 12:41 PM CDT) Blood 11/20/2024 12:4 1 PM CDT us Anup Leonardo MD HEMATOLOGY ORDERABLES Fi nal Result Performing Organization Address [facility] Co de Phone Number NON [facility] * BASIC METABOLIC PANEL (11/20/2024 12:41 PM CDT) Blood 11/20/2024 12:4 1 PM CDT us Anup Leonardo MD CHEMISTRY ORDERABLES Fin al Result Performing Organization Address [facility] Co de Phone Number NON [facility] * XR CHEST PA AND LATERAL 2 VW (11/19/2024) Anatomical Region Laterality Modality Chest Other us Anup Leonardo MD DIAGNOSTIC IMAGING ORDER THOMAS Final Result * (ABNORMAL) POC ELECTROLYTES/BMP (11/14/2024 9:42 AM [...] AND VASC PTS [address] DR CALCIUM POC [facility] AND VASC PTS 1ST DR [...] POC [facility] 1ST Blood 11/14/2024 9:42 AM CDT us Madhavi Wade RECONSTRUCTIVE DENTIST-BC POINT OF CARE TESTING Final Result [facility] V[facility] PTS [address] TIM# [id number] [address] [place] [address] * IA REM INTERROG PM/LDLS PM <90 D PHYS/QHP, IA REM INTERROG PM/LDLS PM/IDS <90 D TECH REVIEW (10/21/2024 9:02 PM CDT) 10/21/2024 9:02 PM CDT us Ernesto Oneal MD CARDIAC SERVICES ORDERABLES Pollo yohana Result - Final INTERFACE SYSTEM Refer to clinic/hospital department from Last 3 Months Insurance MEDICARE PART A AND B [facility] Advance Directives For more information, please contact: [phone] * Full Code (Latest Code Status on File) Date Activated Date Inactivated Comments 07/18/2024 7:10 AM 07/18/2024 1:39 PM Care Teams Datawarehouse Developer Relationship Specialty Start Date End Date Jh Griffin DO [address] [facility] [address] [place] [address] PCP - General Internal Medicine 07/10/24
--- NOTE | 2024-11-22 14:26 | ECHO_ITS ---
Patient Info Name: Stephen Welch Age: 74 years : 1950 Gender: Male Ht: 73 in Wt: 322 lbs BSA: 2.81 m2 HR: 67 bpm BP: 135 / 67 mmHg Technical Quality: Fair Exam Date: 11/22/2024 2:47 PM Patient Status: unknown Admit Date: 11/22/2024 Exam Type: CA echo dop color flow w con Complete two-dimensional, color flow and Doppler transthoracic echocardiogram is performed with contrast to opacify the left ventricle and to improve the deliniation of the left ventricle endocardial borders. Staff Referring Physician: Anup Leonardo Supervisor Specialty Plant: Edilia Carranza Attending Provider: Jh Griffin DO Summary 1. Left ventricular chamber dimension is mildly enlarged. 2. Left ventricular systolic function is mildly reduced, estimated at 40-45. 3. There is mildly increased left ventricular wall thickness. 4. Right ventricular chamber dimension is moderately enlarged. 5. Right ventricular systolic function is normal. 6. Left atrial chamber dimension is severely enlarged. 7. Right atrial chamber dimension is severely enlarged. 8. There is mild to moderate mitral valve regurgitation. 9. There is moderate tricuspid valve regurgitation. Left Ventricle Left ventricular chamber dimension is mildly enlarged. Left ventricular systolic function is mildly reduced, estimated at 40-45. There is mildly increased left ventricular wall thickness. Left ventricular septal wall motion is abnormal with septal motion related to pacing. The left ventricular diastolic function is abnormal. Right Ventricle Linear artifact in right ventricle suggestive of catheter(s), pacemaker lead(s), or ICD lead(s). Right ventricular chamber dimension is moderately enlarged. Right ventricular systolic function is normal. Left Atria Left atrial chamber dimension is severely enlarged. Right Atria Linear artifact in the right atrium suggestive of catheter(s), pacemaker lead(s), or ICD lead(s). Right atrial chamber dimension is severely enlarged. Atrial Septum Intact interatrial septum visualized by color flow imaging. Aortic Valve The aortic valve is not well visualized. There is no aortic valve stenosis. There is no aortic valve regurgitation. Pulmonic Valve The pulmonic valve is not well visualized. There is trace pulmonic regurgitation. Mitral Valve The mitral valve has thickened leaflets. There is mild to moderate mitral valve regurgitation. Tricuspid Valve There is moderate tricuspid valve regurgitation. Pericardium/Pleural The pericardium appears epicardial fat pad. There is no pericardial effusion. Inferior Vena Cava Inferior vena cava is not well visualized. Aorta The aortic root size at the sinus of Valsalva is normal. Left Ventricular Outflow Tract Name Value Normal LVOT 2D LVOT Diameter 2.3 cm LVOT Doppler LVOT Peak Velocity 106 cm/s LVOT Peak Gradient 4 mmHg LVOT Mean Gradient 2 mmHg LVOT VTI 22 cm LVOT VTI/AV VTI Ratio 0.7 LVOT Stroke Volume 88 ml LVOT CO 5.3 l/min LVOT CI 1.9 l/min/m2 Pulmonic Valve Name Value Normal RVOT Doppler RVOT Peak Velocity 57 cm/s RVOT Peak Gradient 1 mmHg PV Doppler PV Peak Velocity 129 cm/s PV Peak Gradient 7 mmHg Mitral Valve Name Value Normal MV Diastolic Function MV E Peak Velocity 118 cm/s MV A Peak Velocity 37 cm/s MV E/A 3.2 MV Decel Time (PW) 173 ms MV Annular TDI MV E/e' (Septal) 18.8 MV E/e' (Lateral) 9.5 MV E/e' (Average) 14.1 Tricuspid Valve Name Value Normal TV Regurgitation Doppler TR Peak Velocity 298 cm/s TR Peak Gradient 36 mmHg TV Annular TDI TV Lateral Courtney s' Velocity 8.7 cm/s >=9.5 Aortic Valve Name Value Normal AV Doppler AV Peak Velocity 135 cm/s AV Peak Gradient 7 mmHg AV Mean Gradient 4 mmHg AV VTI 29 cm AV Area (Cont Eq VTI) 3.0 cm2 >=3.0 AV Area (Cont Eq Shyam) 3.2 cm2 AV DI (Shyam) 0.79 AV Regurgitation 2D LVOT Area 4.0 cm2 Ventricles Name Value Normal LV Dimensions 2D/MM IVS Diastolic Thickness (2D) 1.4 cm 0.6-1.0 LVID Diastole (2D) 6.0 cm 4.2-5.8 LVIW Diastolic Thickness (2D) 1.4 cm 0.6-1.0 LVID Systole (2D) 4.7 cm 2.5-4.0 LVOT Diameter 2.3 cm LV Mass (2D Cubed) 381.85 g 88.00-224.00 LV Mass Index (2D Cubed) 136 g/m2 49-115 Relative Wall Thickness (2D) 0.45 <=0.42 LV Fractional Shortening/Ejection Fraction 2D/MM LV Fractional Shortening (2D) 21 % 25-43 LV EF (2D Teichholz) 43 % LV Diastolic Volume (4C MOD) 339 ml LV EF (4C MOD) 45 % LV Diastolic Volume (2C MOD) 344 ml LV EF (2C MOD) 51 % LV Diastolic Volume (BP MOD) 342 ml 62-150 LV Diastolic Volume Index (BP MOD) 122 ml/m2 34-74 LV Systolic Volume (BP MOD) 182 ml 21-61 LV Systolic Volume Index (BP MOD) 65 ml/m2 11-31 LV EF (BP MOD) 47 % 52-72 LV Diastolic Length (4C) 11.4 cm LV Systolic Length (4C) 9.7 cm LV Stroke Volume (4C MOD) 152 ml Atria Name Value Normal LA Dimensions LA Volume (4C A-L) 148 ml LA Volume (BP A-L) 152 ml Report Signatures
[2024-11-22] MEDS: PERFLUTREN LIPID MICROSPHERES 1.5 ML VIAL DILUTED TO 10 ML TOTAL VOLUME IV PUSH (15:40)
--- NOTE | 2024-11-22 16:10 | IVDEFINITY ---
Prior to administration of IV Definity the patient was educated on the risks and benefits of the imaging enhancing agent including potential adverse side effects. The patient verbalized understanding. Allergies were verified. No exclusion criteria were identified and at least one of the following inclusion criteria were met: 1) physician request, 2) patient technically difficult to image (per the [place] [employer] Echocardi[employer] guidelines of two or more segments not discernable within the apical view), or 3) questionable left ventricular function. ?
== END 2024-11-22 14:12 | disposition home or self-care (01) ==
PROVIDERS: PCP Internal Medicine; Referring Provider Internal Medicine Cardiovascular Disease; Visit Provider Internal Medicine
DX: I48.20 Chronic atrial fibrillation, unspecified (principal); I08.1 Rheumatic disorders of both mitral and tricuspid valves
CPT/HCPCS: C8929; Q9957

== ENCOUNTER 2025-02-22 08:16 | Outpatient (CLI) | payer MEDICARE, SELFPAY ==
--- OUTSIDE RECORDS SUMMARY | 2025-02-22 08:18 | XMS_ITS | Clinical Summary ---
Author Organization [facility] Address [address] [place] [address] Care Team Providers Care Slubber Tender Name Role Phone Jh Griffin Primary Care Provider [phone] Allergies Active Allergy Reactions Criticality Noted Date Comments Sulfa (Sulfonamide Antibiotics) Unknown 02/02 Medications felodipine (PLENDIL) 10 mg Extended Release 24 hour tablet Take 5 mg by mouth daily at bedtime. 12/05/19 19 Active omeprazole (PriLOSEC) 20 mg Capsule, Delayed Release(E.C.) 01/20/20 19 Active apixaban (Eliquis) 5 mg tablet Take 5 mg by mouth every 12 hours. 05/17/20 22 Active memantine (NAMENDA) 10 mg Tablet Take 10 mg by mouth 2 times daily. 05/30/20 23 Active atorvastatin (LIPITOR) 80 mg tablet 80 mg. 02/28/20 21 Active sertraline (ZOLOFT) 50 mg tablet Take 50 mg by mouth daily. 06/18/20 22 Active tamsulosin (FLOMAX) 0.4 mg capsule Take 0.4 mg by mouth daily. 06/15/20 22 Active cholecalcifer ol, vitamin D3, 1,000 unit Take 1,000 Units by mouth daily. Active Breztri Aerosphere 160 mcg-9mcg-4.8m cg/actuation HFA aerosol inhaler Take 2 Puffs by inhalation 2 times daily. 10/16/19 22 Active traMADoL (ULTRAM) 50 mg tablet Take 50 mg by mouth 2 times daily. 05/18/20 22 Active empagliflozin (Jardiance) 10 mg tablet Take 1 Tablet (10 mg) by mouth daily in the morning. 30 Tablet 11 05/23/20 24 Active lisinopriL (PRINIVIL) 20 mg tablet Take 1 Tablet (20 mg) by mouth daily. 90 Tablet 3 05/23/20 24 Active acetaminophen (TYLENOL ARTHRITIS) 650 mg Extended Release tablet Take 650 mg by mouth every 6 hours as needed for Pain. Active metoprolol succinate (Toprol XL) 25 mg Extended Release 24 hour tablet Take 1 Tablet (25 mg) by mouth daily. 30 Tablet 11 09/25/19 25 Active potassium CHLORIDE (K-TAB) 20 mEq Extended Release tablet Take 1 Tablet (20 mEq) by mouth 2 times daily with meals. 180 Tablet 3 09/25/19 25 Active bumetanide (BUMEX) 2 mg tablet TAKE 1 TABLET BY MOUTH 2 TIMES DAILY 180 Tablet 1 12/05/19 25 Active metOLazone (ZAROXOLYN) 2.5 mg tablet TAKE 1 TABLET BY MOUTH ONCE WEEKLY ON TUESDAY 12 Tablet 1 02/23/20 25 Active metOLazone (ZAROXOLYN) 2.5 mg tablet Take 1 Tablet (2.5 mg) by mouth see administration instructions. Once weekly on Tuesday 4 Tablet 3 12/05/19 25 2024 Discontinued Active Problems Patient Care Coordination No te Formatting of this note migh t be different from the original. Bleach Maker Dr. Malissa [place] Problem Noted Date [...] Encounters Date Type Department Care Team Description 02/22/2025 Refill [facility] - [address] [place] [address] Madhavi Wade, CAREER DEVELOPMENT ASSOCIATE-BC 02/19/2025 External Device Data STL ABSTRACTION Provider, Abstract 02/18/2025 Telephone [facility] - [address] [place] [address] Anup Leonardo MD Patient Communication 02/07/2025 Telephone [facility] - [address] [place] [address] Anup Leonardo MD Surgery Talk 01/28/2025 9:00 AM CDT Procedure visit [facility] - [address] [place] [address] Cardiac pacemaker in situ (Primary Dx); Longstanding persistent atrial fibrillation (CMS/HCC); Bradycardia 01/16/2025 External Device Data STL ABSTRACTION Provider, Abstract 01/16/2025 External Device Data STL ABSTRACTION Provider, Abstract 01/16/2025 External Device Data STL ABSTRACTION Provider, Abstract 01/15/2025 External Device Data STL ABSTRACTION Provider, Abstract 12/19/2024 External Device Data STL ABSTRACTION Provider, Abstract 12/18/2024 External Device Data STL ABSTRACTION Provider, Abstract 12/10/2024 10:15 AM CDT Office Visit [facility] [address] [place] [address] Anup Leonardo MD Chronic heart failure with preserved ejection fraction (CMS/HCC) (Primary Dx); Longstanding persistent atrial fibrillation (CMS/HCC); History of pulmonary embolism; Mixed hyperlipidemia; Morbid obesity with BMI of 40.0-44.9, adult (CMS/HCC); HAEZL on CPAP; Chronic anticoagulation; S/P placement of cardiac pacemaker; H/O: CVA (cerebrovascular accident) 12/04/2024 Refill [facility] - [address] [place] [address] Madhavi Wade APRN-JUDY 12/04/2024 Refill [facility] - [address] [place] [address] Madhavi Wade [facility] 11/27/2024 External Device Data STL ABSTRACTION Provider, Abstract 11/27/2024 Orders Only [facility] - [address] [place] [address] Jh Griffin DO 11/22/2024 External Device Data STL ABSTRACTION Provider, Abstract 11/22/2024 External Device Data STL ABSTRACTION Provider, [...] Sign Reading Time Taken Comments Blood Pressure 142/82 12/10/2024 10:29 AM CDT Pulse 66 12/10/2024 10:29 AM CDT Temperature 36.4 C (97.6 F) 07/18/2024 7:30 AM INGOT SUPERVISOR Respiratory Rate 20 11/14/2024 9:51 AM CDT Oxygen Saturation 99% 12/10/2024 10:29 AM CDT Inhaled Oxygen Concentration - - Weight 132.5 kg (292 lb) 12/10/2024 10:29 AM CDT Height 180.3 cm (5' 11) 12/10/2024 10:29 AM CDT Body Mass Index 40.73 12/10/2024 10:29 AM CDT Plan of Treatment Upcoming Encounters Date Type Department Care Team (Late st Contact Info) Description 04/01/2025 10:45 AM CDT Office Visit [facility] [address] [place] [address] Anup Leonardo MD [address] [place] [address] 05/06/2025 9:15 AM INGOT SUPERVISOR Procedure visit [facility] Heart [facility] - [address] [place] [address] Health Maintenance Due Date Last [...] PCV) 04/11/20 20 04/11/2019 INFLUENZA VACCINE (#1) 2025 04/10/2019 Medical Devices Implanted Type Area Steam Locomotive Firer/Fireman Device Identifier Shelf Expiration Date Model / Serial / Lot Lead Pacing Capsure Fix Novus 45cm [id number] - Csc - [id number] Implanted:Qty: 1 on 07/18/2024 by Ernesto Oneal MD at [facility] Lead Right: Heart [employer]- CRM - BULK BUY [id number] 05/17/2026 5076-45 / [id number] 8V / Lead Capsurefix Novus Mri 52cm Endocardial Pacing 5076-52 - [id number] Implanted:Qty: 1 on 07/18/2024 by Ernesto Oneal MD at [facility] Lead Right: Heart [employer]- CRM - BULK BUY [id number] 04/26/2026 5076-52 / [id number] 9V / Pacemaker [place] Xt Dr Mri Ipg Dual Chmbr Surescan [id number] - [id number] Implanted:Qty: 1 on 07/18/2024 by Ernesto Oneal MD at [facility] Pacemaker Left: Chest [employer]- CRM - BULK BUY [id number] 11/28/2025 [id number] / [id number] / Procedures Procedure Name Priority Date/Time Associated Diagnosis Comments DC REM INTERROG PM/LDLS PM/IDS <90 D TECH REVIEW Routine 01/28/2025 12:24 AM CDT Cardiac pacemaker in situ Longstanding persistent atrial fibrillation (CMS/HCC) Bradycardia DC REM INTERROG PM/LDLS PM <90 D PHYS/QHP Routine 01/28/2025 12:24 AM CDT Cardiac pacemaker in situ Longstanding persistent atrial fibrillation (CMS/HCC) Bradycardia ECHOCARDIOGRAM REPORT Routine 11/27/2024 4:03 PM CDT from Last 3 Months Results * DC REM INTERROG PM/LDLS PM <90 D PHYS/QHP, DC REM INTERROG PM/LDLS PM/IDS <90 D TECH REVIEW (01/28/2025 12:24 AM CDT) 01/28/2025 12:2 4 AM CDT William Levine MD CARDIAC SERVICES ORDERAB LES Edited Result - Final INTERFACE SYSTEM Refer to clinic/hospital department * ECHOCARDIOGRAM REPORT (11/27/2024 4:03 PM CDT) us Jh L Elias DO ECHO ORDERABLES Final Result [facility] [address] TIM# [id number] [place] [address] [place] [address] from Last 3 Months Insurance MEDICARE PART A AND B [facility] SUPP Advance Directives For more information, please contact: [phone] * Full Code (Latest Code Status on File) Date Activated Date Inactivated Comments 07/18/2024 7:10 AM 07/18/2024 1:39 PM Care Teams Slubber Tender Relationship Specialty Start Date End Date Jh Griffin DO [address] [place] [address] PCP - General Internal Medicine 07/10/24
--- OUTSIDE RECORDS SUMMARY | 2025-02-22 08:18 | XMS_ITS | Clinical Summary ---
Author Organization [facility] Address [address] [place] [address] Care Team Providers Care Local Delivery Driver Name Role Phone None, Provider Primary Care [...] age to complete this topic Care Teams Local Delivery Driver Relationship Specialty Start Date End Date None, Provider, PCP - General UNKNOWN PHYSICIAN SPECIALTY 07/21/22
--- OUTSIDE RECORDS SUMMARY | 2025-02-22 08:18 | XMS_ITS | Patient Health Record ---
Author Organization [facility] [employer] Address [address] [facility] [address] [place] [address] Care Team Providers Care Bobbin Cleaner Name Role Phone Jh Griffin DO Primary Care Provider UnavailJesus Curtis Unavailable [phone] Allergies Allergen (clinical drug ingredient) Drug/Non Drug Allergy documented on EMR Reaction Allergy Type Onset Date Status Sulfur Dioxide SULFUR DIOXIDE (uncoded) Unknown Allergy 05/30/2023 Active SULFUR HEXAFLUORIDE MICROSPHERES (uncoded) Unknown Allergy 05/30/2023 Active Reason For Referral No Information Medications Medication SIG (Take, Route, Frequency, Duration) Notes Start Date End Date Status Sertraline HCl 100 MG Tablet 1 tablet Oral Once a day; Duration: 90 days Active Memantine HCl 10 MG Tablet 1 tablet Orally twice a day; Duration: 90 days Active metOLazone 2.5 MG Tablet Oral; Duration: 30 Days Active Memantine HCl 10 MG Tablet 1 tablet Orally twice a day; Duration: 90 days Active Sertraline HCl 100 MG Tablet TAKE 1 TABLET BY MOUTH EVERY DAY FOR 90 DAYS; Duration: 90 Active Potassium Chloride ER 10 MEQ Tablet Extended Release Oral 08/22/2023 Active Felodipine ER 10 mg Tablet Extended Release 24 Hour Oral 08/22/2023 Active Bumetanide 2 MG Tablet Oral; Duration: 30 Days Active Lisinopril 10 MG Tablet Oral 08/22/2023 Active Omeprazole 20 MG Capsule Delayed Release Oral 08/22/2023 Active Jardiance 10 MG Tablet Oral; Duration: 30 Days Active Atorvastatin Calcium 80 MG Tablet Oral 08/22/2023 Active Eliquis 5 MG Tablet Oral 08/22/2023 Active Breztri Aerosphere 160-9-4.8 MCG/ACT Aerosol Inhalation *Reorder from RECCY for eRx and Interaction Alerts* 08/22/2023 Active Tamsulosin HCl 0.4 MG Capsule Oral 08/22/2023 Active Social History Tobacco Use: Social History Observation Description Date Details (start date - stop date) Never Smoker NA - NA Sex Assigned At : Social History Observation Description Sex Assigned At Male Social History Tobacco Use: Social Info Question Answer Notes Tobacco Control (Standard) Tobacco use: Nonsmoker Additional Details Category Social Info Options Details Migrated Social History Migrated Social History Alcohol Intake: None 09/03/2022,Tobacco Years: Former smoker 09/03/2022 Problems Problem Type SNOMED Code ICD Code Onset Dates Problem Status W/U Status Risk Notes Problem Moderate recurrent major depression (99797026) Major depressive disorder, recurrent, moderate (F33.1) 08/22/2023 Active confirmed Problem Mild cognitive disorder (402626270) Mild cognitive impairment, so stated (G31.84) 08/22/2023 [...] N/A Encounters Encounter Location Date Provider Diagnosis [facility] [employer] [address] [facility] [address] [place] [address] 08/24/2024 Jesus Joseph Mild cognitive impairment, so stated G31.84 and Major depressive disorder, recurrent, moderate F33.1 [employer] [facility] [address] [facility] [address] [place] [address] 10/18/2024 Jesus Joseph Mild cognitive impairment, so stated G31.84 [employer] [address] [facility] [address] [place] [address] 11/15/2024 Jesus Joseph Mild cognitive impairment, so stated G31.84 ; Major depressive disorder, recurrent, moderate F33.1 ; Encounter for screening for depression Z13.31 and Encounter for screening for cardiovascular disorders Z13.6 [facility] [employer] [address] [facility] [address] [place] [address] 04/20/2024 Jesus Ruiz Mild cognitive impairment, so stated G31.84 Assessments Encounter Date Diagnosis (ICD Code) Assessment Notes Treatment Notes Treatment Clinical Notes Section Notes 04/20/2024 Mild cognitive impairment, so stated (ICD-10 - G31.84) 08/24/2024 Mild cognitive impairment, so stated (ICD-10 - G31.84) 11/15/2024 Major depressive disorder, recurrent, moderate (ICD-10 [...] Tasks Completed: 6 cognitive domains 1. SLUMS ([facility] Mental Status Exam) Total Score: 22 For [...] Verbal span training using free apps like CognKakoonait or Peak. 11/15/2024 Encounter for screening for depression (ICD-10 - Z13.31) 08/24/2024 Major depressive disorder, recurrent, moderate (ICD-10 - F33.1) 11/15/2024 Encounter for screening for cardiovascular disorders (ICD-10 - Z13.6) 08/24/2024 Other Pacemaker Insertion - Plan: - Continue to monitor the patient's progress. - Follow up with a poundmaster as needed. Depression - Plan: - Continue [...] memantine 10 mg twice a day to [facility] pharmacy. Lifestyle - Plan: - Encourage the patient to maintain a healthy lifestyle. - Encourage engagement in activities that promote mental and physical well-being. 11/15/2024 Other referral to the local chapter or national office of the Alzheimer's Association (; http://www.alz .org), the Alzheimer's Disease Education and Referral Center (ADEIL) (0-982-857-755 0; http://www.maryellen .nih.gov/Alzhe imers/), referral to the local [facility] or national office of the Alzheimer's Association (2-455-081-341 0; http://www.alz .org), the Alzheimer's Disease Education and Referral Center (ADEIL) (2-291-580-271 0; http://www.maryellen .nih.gov/Alzhe imers/), Katlyn Kumar, an elderly male patient with congestive heart failure, presented with fluid retention and cognitive changes following recent diuretic therapy. Congestive Heart Failure with Fluid Retention Assessment: Patient recently hospitalized at [facility] on Tuesday for significant fluid retention [...] on Tuesday morning - Follow up with poundmaster on Tuesday - Monitor for further fluid [...] ensure accuracy, there may be errors, including a&p mechanic inaccuracies and misspellings of medication names. This document should not be considered a verbatim record, and any discrepancies should be verified with the provider. Plan Of Treatment Next Appt Details Provider Name:Jesus Ruiz , 05/16/2025 10:30:00 AM, [facility] [facility] [address] [facility] [address], [address], Insurance Providers Payer Name Payer Address Payer Phone Subscriber Number Group Number Insured Name Patient Relationship to Insured Coverage Start Date Coverage End Date Medicare-I l Medicare [address] [place] [address] [id number] KATLYN KUMAR Self - patient is the insured [facility] Ppo [address] [place] [address] [id number] KATLYN KUMAR Self - patient is the [...]
--- OUTSIDE RECORDS SUMMARY | 2025-02-22 08:18 | XMS_ITS | Encounter Summary ---
Author Organization [facility] Address [address] [place] [address] Care Team Providers Care Clerk Cashier Name Role Phone Jh Griffin DO Primary Care Provider [phone] Reason for Visit * Reason Comments Med Refill Encounter Details Date Type Department Care Team (Late Contact Info) Description 02/22/2025 Refill [facility] Heart and Vascular - [address] [place] [address] Madhavi Wade, GAS CUTTER-BC [address] [place] [address] Social History Tobacco Use Types Packs/Day Years [...] Encounters Date Type Department Care Team (Late Contact Info) Description 04/01/2025 10:45 AM CDT Office Visit [facility] Vascular [address] [place] [address] Anup Leonardo MD [address] [place] [address] 05/06/2025 9:15 AM BOX WORKER Procedure visit [facility] Heart and Vascular - [address] [place] [address] documented as of this encounter Visit Diagnoses Not on filedocumented in this encounter Care Teams Clerk Cashier Relationship Specialty Start Date End Date Jh Griffin DO [address] [facility] [address] [place] [address] PCP - General Internal Medicine 07/10/24 documented as of this encounter
--- OUTSIDE RECORDS SUMMARY | 2025-02-22 08:18 | XMS_ITS | Clinical Summary ---
Author Organization [facility] [place] [place] [address] Address [address] [place] [address] Care Team Providers Care Aquarist Name Role Phone Anton Raines MD Primary Care Provider [phone] Allergies Active Allergy Reactions Criticality Noted Date [...] daily Active calcium carb/D3/magnesi um/zinc (calcium carb-D3-mag rkw76-avyc) 354-135-161-5 cn-gtng-pp-mg tablet Take by mouth Active potassium chloride [...] failure) (HCC) COPD (chronic obstructive pulmonary disease) Hyperlipidemia Shortness of breath Sleep apnea Family [...] on file Legal Sex Male 4:38 AM WOODS LABORER Gender Identity Not on file Sexual Orientation Not on file Obstetrics History Last Filed Vital Signs Vital Sign Reading Time Taken Comments Blood Pressure 128/58 07/08/2023 2:12 PM WOODS LABORER Pulse 79 07/08/2023 2:12 PM WOODS LABORER Temperature 36.6 C (97.9 F) 04/11/2019 7:43 AM CDT Respiratory Rate 18 12/11/2021 9:18 AM CDT Oxygen Saturation 92% 07/08/2023 2:12 PM WOODS LABORER Inhaled Oxygen Concentration - - Weight 132.4 kg (291 lb 14.4 oz) 07/08/2023 2:12 PM WOODS LABORER Height 180.3 cm (5' 11) 07/08/2023 2:12 PM WOODS LABORER Body Mass Index 40.71 07/08/2023 2:12 PM WOODS LABORER Plan of Treatment Health Maintenance Due Date [...] (2 - season) 03/04/202402/2021 Influenza Vaccine (#1) 2025 04/10/2019 Goals Goal Patient Goal Type Associated [...] on stairs Contact your local community or [facility] for information on exercise, fall prevention programs, or options for improving home safety. Insurance [facility]ICARE [facility] Advance Directives For more information, please contact: [phone] * Full Code (Latest Code Status on File) Date Activated Date Inactivated Comments 04/10/2019 10:36 PM 04/11/2019 11:38 PM Care Teams Aquarist Relationship Specialty Start Date End Date Anton Raines MD [address] [facility] [address] [place], [place] [id number] PCP - General Internal Medicine 04/12/19
[2025-02-22 08:40] LABS: Hematocrit 39.0 % (42.0-52.0); Hemoglobin 11.3 g/dL (14.0-18.0); Immature Granulocyte Percent A 0.3 % (0-0.5); Lymphocytes Absolute Auto 0.85 K/mm3 (0.9-3.2); Mean Corpuscular HGB Conc 29.0 g/dl (32-36); Mean Corpuscular Hemoglobin 21.8 pg (26-34); Mean Corpuscular Volume 75.3 fl (80-100); Nucleated Red Blood Cells Absolute Auto 0.000 K/mm3 (0.0-0.012); Nucleated Red Blood Cells Perc 0.0 % (0.0-0.2); Platelet Count Result 193 k/mm3 (150-375); Red Blood Count 5.18 M/mm3 (4.6-6.20); White Blood Count 5.8 K/mm3 (4.5-10.0)
[2025-02-22 09:03] LABS: Hypochromasia 1+
[2025-02-22 09:04] LABS: Acanthocytes 1+; Ovalocytes 1+; Schistocytes None Seen
[2025-02-22 09:05] LABS: Anisocytosis 2+
== END 2025-02-22 08:17 | disposition home or self-care (01) ==
PROVIDERS: Visit Provider Internal Medicine
DX: D64.9 Anemia, unspecified (principal)
CPT/HCPCS: 36415; 85025

== ENCOUNTER 2025-04-17 13:33 | Outpatient (CLI) | payer MEDICARE, SELFPAY ==
--- NOTE | 2025-04-17 | ECHO_ITS ---
Patient Info Name: Stephen Welch Age: 74 years : 1950 Gender: Male Ht: 71 in Wt: 295 lbs BSA: 2.65 m2 HR: 84 bpm BP: 126 / 75 mmHg Heart Rhythm: Paced Technical Quality: Fair Exam Date: 04/17/2025 2:17 PM Patient Status: O Admit Date: 04/17/2025 Exam Type: CA echo dop color flow w con Complete two-dimensional, color flow and Doppler transthoracic echocardiogram is performed with contrast to opacify the left ventricle and to improve the deliniation of the left ventricle endocardial borders. Staff Referring Physician: Jh Griffin DO Shirt Operator: Jeremy Hudson III Attending Provider: Anup Leonardo Contrast/Agitated Saline Contrast/Ag. Saline: Definity Amount: 2.00 ml Administered By: Jeremy Hudson III Existing IV Access: No IV Access Condition: patent with no signs of infiltration New IV Access: Left Site Condition: IV removed Summary 1. Left ventricular chamber dimension is moderately enlarged. 2. Left ventricular systolic function is severely reduced, estimated at 25-30. 3. There is mildly increased left ventricular wall thickness. 4. The left ventricular diastolic function is grade I diastolic dysfunction. 5. Right ventricular chamber dimension is moderately enlarged. 6. Right ventricular systolic function is reduced. 7. Linear artifact in right ventricle suggestive of catheter(s), pacemaker lead(s), or ICD lead(s). 8. Left atrial chamber dimension is moderately enlarged. 9. Right atrial chamber dimension is moderately enlarged. 10. There is moderate aortic valve sclerosis. 11. There is mild aortic valve regurgitation. 12. There is moderate mitral valve regurgitation. 13. The mitral valve has thickened leaflets. 14. There is moderate tricuspid valve regurgitation. 15. Severe pulmonary hypertension, estimated pulmonary arterial systolic pressure is 61 mmHg. 16. There is mild pulmonic regurgitation. 17. The prox ascending aorta size is mildly dilated. Left Ventricle Left ventricular chamber dimension is moderately enlarged. Left ventricular systolic function is severely reduced, estimated at 25-30. There is mildly increased left ventricular wall thickness. The left ventricular diastolic function is grade I diastolic dysfunction. Right Ventricle Right ventricular chamber dimension is moderately enlarged. Right ventricular systolic function is reduced. Linear artifact in right ventricle suggestive of catheter(s), pacemaker lead(s), or ICD lead(s). Left Atria Left atrial chamber dimension is moderately enlarged. Right Atria Right atrial chamber dimension is moderately enlarged. Atrial Septum Intact interatrial septum visualized by color flow imaging. Aortic Valve The aortic valve is trileaflet. There is moderate aortic valve sclerosis. There is no aortic valve stenosis. There is mild aortic valve regurgitation. Pulmonic Valve The pulmonic valve is normal. There is no pulmonic valve stenosis. There is mild pulmonic regurgitation. Mitral Valve The mitral valve has thickened leaflets. There is no mitral valve stenosis. There is moderate mitral valve regurgitation. Tricuspid Valve The tricuspid valve leaflets are normal. There is no significant tricuspid valve stenosis. There is moderate tricuspid valve regurgitation. Severe pulmonary hypertension, estimated pulmonary arterial systolic pressure is 61 mmHg. Pericardium/Pleural The pericardium appears normal. There is no pericardial effusion. Inferior Vena Cava Dilated inferior vena cava with <50% collapse upon inspiration consistent with elevated right atrial pressure, 15 mmHg. Aorta The prox ascending aorta size is mildly dilated. Left Ventricular Outflow Tract Name Value Normal LVOT 2D LVOT Diameter 2.5 cm LVOT Doppler LVOT Peak Velocity 113 cm/s LVOT Peak Gradient 5 mmHg LVOT Mean Gradient 3 mmHg LVOT VTI 21 cm LVOT VTI/AV VTI Ratio 0.8 LVOT Stroke Volume 108 ml LVOT CO 6.5 l/min LVOT CI 2.5 l/min/m2 Pulmonic Valve Name Value Normal PV Doppler PV Peak Velocity 83 cm/s PV Peak Gradient 3 mmHg PV Mean Gradient 1 mmHg Mitral Valve Name Value Normal MV Doppler MV Peak Gradient 6 mmHg MV Mean Gradient 2 mmHg MV Area (Cont Eq VTI) 3.6 cm2 MV Regurgitation Doppler MR Peak Gradient 88 mmHg MV Diastolic Function MV E Peak Velocity 109 cm/s MV A Peak Velocity 1 cm/s MV E/A 199.0 MV Decel Time (PW) 222 ms MV Annular TDI MV E/e' (Septal) 17.3 MV E/e' (Lateral) 7.5 MV E/e' (Average) 12.4 Tricuspid Valve Name Value Normal TV Regurgitation Doppler TR Peak Velocity 339 cm/s TR Peak Gradient 37 mmHg Estimated PAP/RSVP RA Pressure 15 mmHg <=5 PA Systolic Pressure 61 mmHg <36 RV Systolic Pressure 61 mmHg <36 TV Annular TDI TV Lateral Courtney s' Velocity 10.0 cm/s >=9.5 Aortic Valve Name Value Normal AV Doppler AV Peak Velocity 130 cm/s AV Peak Gradient 7 mmHg AV Mean Gradient 4 mmHg AV VTI 27 cm AV Area (Cont Eq VTI) 4.0 cm2 >=3.0 AV Area (Cont Eq Shyam) 4.4 cm2 AV DI (Shyam) 0.87 AV Regurgitation 2D LVOT Area 5.0 cm2 Ventricles Name Value Normal LV Dimensions 2D/MM IVS Diastolic Thickness (2D) 1.4 cm 0.6-1.0 LVID Diastole (2D) 6.6 cm 4.2-5.8 LVIW Diastolic Thickness (2D) 1.1 cm 0.6-1.0 LVID Systole (2D) 5.8 cm 2.5-4.0 LVOT Diameter 2.5 cm LV Mass (2D Cubed) 400.91 g 88.00-224.00 LV Mass Index (2D Cubed) 151 g/m2 49-115 Relative Wall Thickness (2D) 0.34 <=0.42 LV Fractional Shortening/Ejection Fraction 2D/MM LV Fractional Shortening (2D) 13 % 25-43 LV EF (2D Teichholz) 27 % LV Diastolic Volume (4C MOD) 177 ml LV EF (4C MOD) 30 % LV Diastolic Volume (2C MOD) 153 ml LV EF (2C MOD) 42 % LV Diastolic Volume (BP MOD) 169 ml 62-150 LV Diastolic Volume Index (BP MOD) 64 ml/m2 34-74 LV Systolic Volume (BP MOD) 109 ml 21-61 LV Systolic Volume Index (BP MOD) 41 ml/m2 11-31 LV EF (BP MOD) 36 % 52-72 LV Diastolic Length (4C) 8.4 cm LV Systolic Length (4C) 7.3 cm LV Stroke Volume (4C MOD) 53 ml Atria Name Value Normal LA Dimensions LA Volume (4C A-L) 166 ml LA Volume (BP A-L) 160 ml RA Dimensions RA Systolic Major Flora Length (4C) 7.9 cm 2.1-2.7 RA Area (4C) 35.0 cm2 <=18.0 Report Signatures
[2025-04-17] MEDS: PERFLUTREN LIPID MICROSPHERES 1.5 ML VIAL DILUTED TO 10 ML TOTAL VOLUME IV PUSH (15:46)
--- NOTE | 2025-04-17 15:46 | IVDEFINITY ---
Prior to administration of IV Definity the patient was educated on the risks and benefits of the imaging enhancing agent including potential adverse side effects. The patient verbalized understanding. Allergies were verified. No exclusion criteria were identified and at least one of the following inclusion criteria were met: 1) physician request, 2) patient technically difficult to image (per the [place] [employer] guidelines of two or more segments not discernable within the apical view), or 3) questionable left ventricular function. ?
== END 2025-04-17 13:34 | disposition home or self-care (01) ==
PROVIDERS: PCP Internal Medicine; Referring Provider Internal Medicine; Visit Provider Internal Medicine Cardiovascular Disease
DX: I50.32 Chronic diastolic (congestive) heart failure (principal); I49.5 Sick sinus syndrome; I42.8 Other cardiomyopathies; I48.11 Longstanding persistent atrial fibrillation; I51.89 Other ill-defined heart diseases; I35.8 Other nonrheumatic aortic valve disorders; I08.3 Combined rheumatic disorders of mitral, aortic and tricuspid valves; G47.33 Obstructive sleep apnea (adult) (pediatric); Z99.89 Dependence on other enabling machines and devices; Z95.0 Presence of cardiac pacemaker
CPT/HCPCS: C8929; Q9957